=== PATIENT | male | born 1950 | race Caucasian/White ===

== ENCOUNTER → 2017-09-06 10:29 | Outpatient (CLI) | payer OTHER, SELFPAY ==
--- NOTE | 2017-09-06 | DI.CT.S_ITS ---
PROCEDURE: CT ABDOMEN PELVIS WO/W CON INDICATIONS: GROSS HEMETURIA TECHNIQUE: Optional 5 mm thick noncontrast images acquired from the diaphragm to the symphysis pubis. After the administration of intravenous contrast, 5 mm thick images acquired from the diaphragm to the symphysis pubis after a 10-minute delay. 2 mm thick coronal and sagittal reformats were then performed of the kidneys and ureters. For radiation dose reduction, the following was used: automated exposure control, adjustment of mA and/or kV according to patient size. COMPARISON: [facility], CT, IVP (ABD & PEL WWO CONTRAST), 07/23/2013, 8:15. [facility], NM, NM BONE SCAN WHOLE BODY, 04/19/2017, 13:06. [facility], CT, CT CHEST ABDOMEN PELVIS WITH CONTRAST, 04/19/2017, 14:41. CT, ABDOMEN/PELVIS WITH CONTRAST, 11/19/2006, 9:35. FINDINGS: Image quality: Excellent. Lung bases: A 1.6 cm irregular density in the right lung base is most likely scar or atelectasis. A tiny hiatal hernia is noted. Heart size is normal. Urinary system: Both kidneys are normal in size, without hydronephrosis or nephrolithiasis on pre-contrast images. No perinephric fat stranding. There is normal bilateral renal enhancement. Renal calyces appear normal in morphology when filled with contrast. Opacified portions of both ureters demonstrate normal caliber. Bladder is partially contracted. No bladder stones. The anterior wall of the urinary bladder is thickened with appearance suggesting a mass measuring 2.2 x 2.9 cm. No calcified bladder stones. Multiple surgical clips are present related to prostatectomy. Other solid organs: There is diffuse hepatic fatty infiltration. Liver is normal in size and enhancement. Gallbladder is normal. Biliary system is non dilated. Pancreas enhances normally. Spleen is normal in size and enhancement. No adrenal nodules. Peritoneum and bowel: Bowel loops demonstrate normal wall thickness and caliber. There are scattered colonic diverticula. No evidence for acute diverticulitis. No free fluid or air. Nodes and vessels: Increased retroperitoneal lymphadenopathy. For example, a 1.8 x 2.1 cm left para-aortic lymph node now measures 0.9 x 1.2 cm. A 1.1 cm aortocaval lymph node now measures 0.8 cm. Aorta and inferior vena cava are normal in size. Abdominal wall: No ventral hernias. Pelvis: Presacral soft tissue nodules are decreased in size. For example, the largest presacral nodule measured 1.5 x 2.2 cm on the last exam, now measuring 1.1 x 1.4 cm. No pathologic free pelvic fluid. No inguinal hernias or adenopathy. Bones: No suspicious bony lesions. No vertebral body compression fractures. IMPRESSION: 1. Bladder is partially contracted. The anterior wall the bladder is thickened at the midline with appearance suggesting a mass which measures 2.2 x 2.9 cm. Recommend cystoscopy for further evaluation. 2. No renal stone hydronephrosis. 3. Decreased retroperitoneal lymphadenopathy. 4. Decrease in size of presacral soft tissue nodules.. 5. A 1.6 cm irregular density in the right lung base, most likely scar or atelectasis. A followup CT suggested in 3 months. 6. Diverticulosis without acute diverticulitis. Dictated by: Pete Hernández M.D. on 09/06/2017 at 14:37 Approved by: Pete Hernández M.D. on 09/06/2017 at 18:36
== END ==
PROVIDERS: Family Provider Internal Medicine Hematology & Oncology; PCP Internal Medicine; Visit Provider Urology
DX: N32.89 Other specified disorders of bladder (principal); R31.0 Gross hematuria; R91.8 Other nonspecific abnormal finding of lung field; K57.90 Diverticulosis of intestine, part unspecified, without perforation or abscess without bleeding
CPT/HCPCS: 74178; Q9967

== ENCOUNTER → 2017-11-26 11:33 | Outpatient (CLI) | payer OTHER, SELFPAY ==
--- NOTE | 2017-11-26 | DI.RAD.S_ITS ---
PROCEDURE: XR WRIST LT MIN 3V INDICATIONS: LEFT WRIST PAIN TECHNIQUE: 4 views of the wrist were acquired. COMPARISON: [facility], CR, HAND MIN 3VW (LT), 11/10/2009, 15:14. FINDINGS: Bones: No fractures or dislocations. No suspicious bony lesions. Degenerative joint disease has developed at the first carpometacarpal joint. Scaphoid view: Normal scaphoid Soft tissues: No suspicious soft tissue calcifications. IMPRESSION: Osteoarthritis basilar joint of the thumb Dictated by: Paul García M.D. on 11/26/2017 at 12:53 Approved by: Paul García M.D. on 11/26/2017 at 12:55
== END ==
PROVIDERS: Family Provider Internal Medicine Hematology & Oncology; PCP Internal Medicine; Visit Provider Internal Medicine
DX: M19.042 Primary osteoarthritis, left hand (principal); M25.532 Pain in left wrist
CPT/HCPCS: 73110

== ENCOUNTER → 2017-12-04 14:20 | Outpatient (CLI) | payer OTHER, SELFPAY ==
[2017-12-04 14:45] LABS: Add Manual Diff / Slide Review NO; Basophils Percent Auto 0.7 % (0-2); Eosinophils Percent Auto 1.8 % (2-4); Hematocrit 41.6 % (41-53); Hemoglobin 13.8 g/dL (13.5-17.5); Lymphocytes Percent Auto 29.4 % (25-40); Mean Corpuscular HGB Conc 33.3 % (30-36); Mean Corpuscular Hemoglobin 28.1 PG (26-34); Mean Corpuscular Volume 84.4 fL (80-100); Monocytes Percent Auto 7.9 % (3-14); Neutrophils Absolute Auto 3700 /uL (3000-5900); Neutrophils Percent Auto 60.2 % (50-75); Platelet Count 191 X10^3/uL (150-400); Red Blood Cell Count 4.92 X10^6/uL (4.5-5.9); Red Cell Distribution Width 12.8 % (11.6-14.8); White Blood Cell Count 6.1 X10^3/uL (4.5-11.0)
[2017-12-04 15:06] LABS: Alanine Aminotransferase 121 IU/L (21-72); Albumin 4.6 g/dL (3.5-5.0); Albumin Globulin Ratio 1.6 (1.0-2.8); Alkaline Phosphatase 80 U/L (38-126); Aspartate Aminotransferase 107 IU/L (17-59); Bilirubin Total 0.3 mg/dL (0.2-1.3); Blood Urea Nitrogen 15 mg/dL (9-20); Calcium 10.2 mg/dL (8.4-10.2); Carbon Dioxide 25 mmol/L (22-32); Chloride 100 mmol/L (98-107); Estimated Glomerular Filt Rate > 60.0 mL/min (>60); Globulin 2.8 g/dL (1.7-4.1); Glucose 205 mg/dL (80-110); HEMOLYSIS 21 (0-50); Sodium 136 mmol/L (137-145); Total Protein 7.4 g/dL (6.3-8.2)
[2017-12-04 15:33] LABS: Prostate Specific Antigen < 0.064 ng/mL (0.10-4.00)
== END ==
PROVIDERS: Family Provider Internal Medicine Hematology & Oncology; PCP Internal Medicine; Visit Provider Nurse Practitioner Gerontology
DX: C61 Malignant neoplasm of prostate (principal)
CPT/HCPCS: 36415; 80053; 84153; 85025

== ENCOUNTER → 2018-01-24 14:51 | Outpatient (CLI) | payer OTHER, SELFPAY ==
[2018-01-24 15:19] LABS: Add Manual Diff / Slide Review NO; Basophils Percent Auto 0.7 % (0-2); Eosinophils Percent Auto 2.5 % (2-4); Hematocrit 41.3 % (41-53); Hemoglobin 13.8 g/dL (13.5-17.5); Lymphocytes Percent Auto 33.5 % (25-40); Mean Corpuscular HGB Conc 33.5 % (30-36); Mean Corpuscular Hemoglobin 28.3 PG (26-34); Mean Corpuscular Volume 84.6 fL (80-100); Monocytes Percent Auto 9.6 % (3-14); Neutrophils Absolute Auto 4100 /uL (3000-5900); Neutrophils Percent Auto 53.7 % (50-75); Platelet Count 227 X10^3/uL (150-400); Red Blood Cell Count 4.88 X10^6/uL (4.5-5.9); Red Cell Distribution Width 13.5 % (11.6-14.8); White Blood Cell Count 7.6 X10^3/uL (4.5-11.0)
[2018-01-24 15:30] LABS: Alanine Aminotransferase 137 IU/L (21-72); Albumin 4.6 g/dL (3.5-5.0); Albumin Globulin Ratio 1.5 (1.0-2.8); Alkaline Phosphatase 83 U/L (38-126); Aspartate Aminotransferase 142 IU/L (17-59); BUN Creatinine Ratio 18.9 (6-22); Bilirubin Total 0.4 mg/dL (0.2-1.3); Blood Urea Nitrogen 17 mg/dL (9-20); Calcium 10.3 mg/dL (8.4-10.2); Carbon Dioxide 31 mmol/L (22-32); Chloride 101 mmol/L (98-107); Estimated Glomerular Filt Rate > 60.0 mL/min (>60); Glucose 80 mg/dL (80-110); Potassium 4.1 mmol/L (3.4-5.1); Sodium 144 mmol/L (137-145); Total Protein 7.6 g/dL (6.3-8.2)
[2018-01-24 16:02] LABS: Prostate Specific Antigen < 0.064 ng/mL (0.10-4.00)
[2018-01-24 16:04] LABS: HEMOLYSIS 27 (0-50); Testosterone 9.9 ng/dL (71.8-623)
== END ==
PROVIDERS: Family Provider Internal Medicine Hematology & Oncology; PCP Internal Medicine; Visit Provider Nurse Practitioner Gerontology
DX: C61 Malignant neoplasm of prostate (principal)
CPT/HCPCS: 36415; 80053; 84153; 84403; 85025

== ENCOUNTER 2018-01-28 11:00 | Oncology outpatient (ONC) | payer OTHER, SELFPAY ==
[2017-10-15 14:40] LABS: Alanine Aminotransferase 117 IU/L (21-72); Albumin 4.7 g/dL (3.5-5.0); Albumin Globulin Ratio 1.6 (1.0-2.8); Alkaline Phosphatase 93 U/L (38-126); Aspartate Aminotransferase 104 IU/L (17-59); BUN Creatinine Ratio 18.6 (6-22); Bilirubin Total 0.4 mg/dL (0.2-1.3); Blood Urea Nitrogen 13 mg/dL (9-20); Calcium 9.7 mg/dL (8.4-10.2); Carbon Dioxide 25 mmol/L (22-32); Chloride 98 mmol/L (98-107); Estimated Glomerular Filt Rate > 60.0 mL/min (>60); Glucose 220 mg/dL (80-110); HEMOLYSIS 34 (0-50); Potassium 4.1 mmol/L (3.4-5.1); Sodium 136 mmol/L (137-145); Total Protein 7.7 g/dL (6.3-8.2)
[2017-10-15 15:11] LABS: Prostate Specific Antigen < 0.064 ng/mL (0.10-4.00)
[2017-10-15 15:46] VITALS: BP 133/83; PULSE 74; RESP 17; TEMP 37.1; O2SAT 98
--- NOTE | 2017-10-15 15:46 | P.PNONC_ITS ---
Assessment and Plan (1) Prostate cancer Current visit: Yes Status: Acute 10/15/17 15:47 Rosendo is a 67-year-old male with recent confirmation of PSA failure following prostatectomy for [place] 7 prostate cancer, followed by radiation therapy. Treatment with Lupron de peau 7.5 mg was initiated June 18, 2017 with a baseline PSA of 6.92. Subsequent visit July 12, 2017 PSA was 5.36. At this time he receive lupron depot 0 22.5 mg. Patient was scheduled for Lupron inj today however he declines reporting significant diffuse generalized body pain. He is going on vacation and he wants to be feeling well. He has tried Tylenol that does not seem to help at all. He thinks the pain has been exacerbated by the increased dose 22.5 mg Lupron. This does seem reasonable however I cautioned the patient I would rather he not go without Lupron. I bar gained with him, rather than the 22.5 mg 3 month dose lets go back to the 7.5 mg monthly dose which he states he had no problem with. He also declined this offer stating once again I dont want any lupron today, look at my PSA its so low. I cautioned the patient PSA can jump quite rapidly, in fact his did in March of 2017. PSA today <0.064 Pt verbalizes understanding of associated risks of foregoing Lupron today. He will return to clinic late November for a visit with 1 of the oncologists. At which time we will also check PSA, CBC, CMP. He does have imaging we need to repeat, he may discuss this with his oncologist. Additionally, glucose is noted to be elevated at 220 also AST 104 ALT 117. We will continue to monitor. Patient is to call while he is on vacation for any acute oncology related issues. Once again, I stressed the appointments of him returning as soon as possible for his Lupron. 10/15/17 15:52 - Time Spent with Patient 35 mins PN -Subjective Interval history: Rosendo is a 67-year-old male who is being seen in the clinic October 15, 2017 for diagnosis of recently confirmed PSA failure following prostatectomy for Edd 7 prostate cancer, followed by radiation therapy. PSA level initially went from 0.4 on March 16, 2000 17-8.1 on April 02, 2017. CT scan demonstrated a pathologic iza aortic lymph node as well as an enlarged aortocaval retroperitoneal lymph node. There was also 3.9 x 1.6 x 1.4 cm multiloculated soft tissue density in the presacral mid pelvic area. The patient was subsequently initiated on Lupron de peau 7.5 mg IM June 18 with a new baseline PSA of 6.92. He was evaluated by Dr. Vences July 12, 2017. PSA on that day was down to 5.36. He was showing some early biochemical improvement. Dr. Vences increased lupron t0 22.5mg IM every 3 month dosing. Pt returns for 3 month visit also clinical evaluation. Today on exam he states I hurt everywhere I don't want my lupron shot. Pt goes on to report he will be leaving for vacation soon and will be gone most of October returning late November. He states he wants to feel well. He states his pain is all over his wrists, his knees, his back, his shoulders. He states he does have arthritis this seems to be worse he has been taking tylenol without relief. he has not visited his PCP, he thinks it is due to Lupron. He also reports menopause hot flashes. No more blood in his urine. No change in bladder habits. No change in activity tolerance or appetite. No unexplained weight loss. No new musculoskeletal pain rather, as described above diffuse arthritic type pain. Also having some headaches. Patient does not seem alarmed by these symptoms again, he feels they were exacerbated by Lupron. Hx of present illness Records are primarily from Dr. Ryan munroe. This is a 67-year-old man who has been asymptomatic but is expressed a recent PSA relapse of prostate cancer. 04/02/2017: PSA 8.1 03/16/2017: PSA 0.4 11/16/2015: PSA 0.7 05/06/2015: PSA 1.1 10/16/2014: PSA 1.3 07/02/2014 PSA 1.1 12/30/2013: PSA 0.8 10/24/2013: PSA 0.8 07/25/2013: PSA 0.6 05/27/2013: PSA 0.6 12/31/2012: PSA 0.2 09/27/2012: PSA 0.2 02/21/2012: PSA < 0.1 The patient had intermediate risk prostate cancer according to Dr. munroe, Edd 4+3 with repeat treatment PSA of 6. Prostatectomy in March 2009 Rising PSA leading to a course of salvage radiation to the prostatic fossa completed 05/02/2010 The patient was seen by Dr. Lewis evaluation of pain in the right shoulder and left hip in 04/13/2017. Because of the rise in PSA and MRI of the hip and shoulder were performed but did not show skeletal metastases. CT chest abdomen and pelvis 04/19/2017 showed an enlarged left periaortic lymph node measuring 1.2 cm x 1.6 cm, and enlarged aortocaval retroperitoneal node measuring 1.2 and a left internal iliac node measuring 1 cm. There is a 3.9 x 1.6 x 1.4 cm multiloculated soft tissue density in the presacral midpelvis unchanged from 11/02/2014 no mesenteric adenopathy count desiccation is no specific bony lesions. Liver and spleen normal. None of these lesions was amenable to biopsy after Dr. munroe consulted with interventional radiology. The patient was referred to medical oncology for systemic therapy consideration. Past Medical History The patient's past medical history is significant for: Diabetes type II treated with metformin and glipizide, orthopedic surgeries and injections as described below Hypertension treated with lisinopril Hypercholesterolemia treated with simvastatin No hospitalizations except for the surgeries described below. Past Surgical History The patient's past surgical history includes: Injections of the back and shoulder and knee most recently more than a year ago Arthroscopic surgery left knee Bone chip removed right knee Results - Labs 10/15/17 14:17 Laboratory Last Values Sodium 136 mmol/L (137-145) L 10/15/17 14:17 Potassium 4.1 mmol/L (3.4-5.1) 10/15/17 14:17 Chloride 98 mmol/L (98-107) 10/15/17 14:17 Carbon Dioxide 25 mmol/L (22-32) 10/15/17 14:17 BUN 13 mg/dL (9-20) 10/15/17 14:17 Creatinine 0.70 mg/dL (0.66-1.25) 10/15/17 14:17 Estimated GFR > 60.0 mL/min (>60) 10/15/17 14:17 BUN/Creatinine Ratio 18.6 (6-22) 10/15/17 14:17 Glucose 220 mg/dL (80-110) H 10/15/17 14:17 Calcium 9.7 mg/dL (8.4-10.2) 10/15/17 14:17 Total Bilirubin 0.4 mg/dL (0.2-1.3) 10/15/17 14:17 AST 104 IU/L (17-59) H 10/15/17 14:17 ALT 117 IU/L (21-72) H 10/15/17 14:17 Alkaline Phosphatase 93 U/L (38-126) 10/15/17 14:17 Total Protein 7.7 g/dL (6.3-8.2) 10/15/17 14:17 Albumin 4.7 g/dL (3.5-5.0) 10/15/17 14:17 Globulin 3.0 g/dL (1.7-4.1) 10/15/17 14:17 Albumin/Globulin Ratio 1.6 (1.0-2.8) 10/15/17 14:17 Prostate Specific Ag < 0.064 ng/mL (0.10-4.00) L 10/15/17 14:17 - Imaging Additional studies: Procedures Colonoscopy (10/28/12) Injection or infusion of other therapeutic or prophylactic substance (02/28/13) Home Medications and Allergies Home Medications Medication Instructions Recorded Confirmed Type [CANNIBUS OIL] PRN #0 05/25/17 History aspirin 81 mg PO QDAY #0 05/25/17 10/15/17 History calcium carbonate [Tums] 500 mg PO QDAY #0 05/25/17 10/15/17 History fluoxetine 10 mg PO Q DAY #0 05/25/17 10/15/17 History fluticasone 2 spray INTRANASAL QDAYP PRN #0 05/25/17 10/15/17 History glipizide 5 mg PO AMAC #0 05/25/17 10/15/17 History hydrochlorothiazide 12.5 mg PO QDAY #0 05/25/17 10/15/17 History lisinopril 20 mg PO BID #0 05/25/17 10/15/17 History metformin [Glucophage] 1,000 mg PO BIDCC #0 05/25/17 10/15/17 History multivitamin [Multiple Vitamins] 1 tab PO QDAY #0 05/25/17 10/15/17 History nortriptyline 25 mg PO EVERY OTHER DAY #0 05/25/17 10/15/17 History omeprazole 20 mg PO QDAY #0 05/25/17 10/15/17 History oxycodone 5 mg PO PRN PRN #0 05/25/17 10/15/17 History ropinirole 2 mg PO HS #0 05/25/17 10/15/17 History simvastatin 10 mg PO QDAY #0 05/25/17 10/15/17 History zolpidem 5 mg PO HS #0 05/25/17 10/15/17 History Allergies Allergy/AdvReac Type Severity Reaction Status Date / Time No Known Allergies Allergy Uncoded 08/15/17 11:50 Exam Narrative: non toxic - Constitutional positive no acute distress, positive obese - Routine HEENT Exam Head: Present: normocephalic, atraumatic Eye: Present: EOMI, PERRL, normal accommodation, conjunctivae pink. Absent: conjunctival icterus, scleral injection ENT: Present: mucous membranes moist - Routine Neck Exam Present: supple. Absent: lymphadenopathy - Routine Chest/Breast/Axilla Exam Axillae: Absent: lymphadenopathy, mass, tenderness - Routine Respiratory Exam Present: Clear to auscultation bilaterally - Routine Cardiovascular Exam Present: RRR, S1, S2 - Routine Abdominal Exam Present: soft, normoactive bowel sounds. Absent: tenderness, distended, organomegaly, mass - Routine Extremities Exam Absent: edema, calf tenderness - Routine Skin Exam Present: intact, normal turgor. Absent: petechiae - Routine Neurological Exam Present: alert, oriented X3 - Routine Psychiatric Exam Present: normal affect
--- NOTE | 2017-12-10 08:59 | P.PNONC_ITS ---
Assessment and Plan (1) Prostate cancer Current visit: No Status: Acute 12/10/17 08:58 Rosendo is a 67-year-old male who is being seen in the clinic December 10 2017 for diagnosis of recently confirmed PSA failure following prostatectomy for Edd 7 prostate cancer, followed by radiation therapy. PSA level initially went from 0.4 on March 16, 2000 17-8.1 on April 02, 2017. CT scan demonstrated a pathologic iza aortic lymph node as well as an enlarged aortocaval retroperitoneal lymph node. There was also 3.9 x 1.6 x 1.4 cm multiloculated soft tissue density in the presacral mid pelvic area. The patient was subsequently initiated on Lupron depot 7.5 mg IM June 18 with a PSA of 6.92. PSA July 12, 2017 5.36. PSA October 15, 2017 <0.064. Per pt request Lupron was held previous visit 10/15/2017 as pt was going on summer vacation and he wanted to feel good, the Lupron makes me feel terrible . Most recent Lupron injection was 22.5mg July 12 2017. He again declines Lupron today. We reviewed his numbers today including PSA < 0.064. I recommended to the patient he continue with Lupron injections. He verbalizes understanding of associated risks of foregoing Lupron therapy again today. He agrees to return to clinic in 1 months time to see our new oncologist. We will also check PSA, testosterone, CBC, CMP. 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 12/10/17 15:25 12/10/17 15:31 - Time Spent with Patient 30 minutes PN -Subjective Interval history: Rosendo is a 67-year-old male who is being seen in the clinic December 10 2017 for diagnosis of recently confirmed PSA failure following prostatectomy for Edd 7 prostate cancer, followed by radiation therapy. PSA level initially went from 0.4 on March 16, 2000 17-8.1 on April 02, 2017. CT scan demonstrated a pathologic iza aortic lymph node as well as an enlarged aortocaval retroperitoneal lymph node. There was also 3.9 x 1.6 x 1.4 cm multiloculated soft tissue density in the presacral mid pelvic area. The patient was subsequently initiated on Lupron depot 7.5 mg IM June 18 with a new baseline PSA of 6.92. He was evaluated by Dr. Vences July 12, 2017. PSA on that day was down to 5.36. He was showing some early biochemical improvement. Dr. Vences increased lupron t0 22.5mg IM every 3 month dosing. Oncology visit 10/15/2017 PSA was <0.064. At this visit pt declined Lupron indicating he was going on vacation and wanted to feel good. Pt returns today for clinical evaluation as well as Lupron injection however pt states at the outset of exam he does not want Lupron inj today. Rosendo goes on to report rather sever chronic joint pain, he has known arthritis, osteoarthritis, now with recent diagnosis of degenerative disease in his left hand. He states his pain got significantly worse with initiation of Lupron. He is seeing a pain management special in the upcoming weeks. He is taking Tylenol also ibuprofen with an occasional oxycodone. This is not effective his pain is almost always greater than a 4/10, most often it is a 6-7/10. He does report some fatigue however fairly manageable. No shortness of breath, no chest pain. He does report hot flashes they are bothersome to him. Appetite is very good. No issues with bladder or bowel habits. No headaches. No new pain. No new lumps or bumps. Hx of present illness Records are primarily from Dr. Ryan munroe. This is a 67-year-old man who has been asymptomatic but is expressed a recent PSA relapse of prostate cancer. 04/02/2017: PSA 8.1 03/16/2017: PSA 0.4 11/16/2015: PSA 0.7 05/06/2015: PSA 1.1 10/16/2014: PSA 1.3 07/02/2014 PSA 1.1 12/30/2013: PSA 0.8 10/24/2013: PSA 0.8 07/25/2013: PSA 0.6 05/27/2013: PSA 0.6 12/31/2012: PSA 0.2 09/27/2012: PSA 0.2 02/21/2012: PSA < 0.1 The patient had intermediate risk prostate cancer according to Dr. munroe, Edd 4+3 with repeat treatment PSA of 6. Prostatectomy in March 2009 Rising PSA leading to a course of salvage radiation to the prostatic fossa completed 05/02/2010 The patient was seen by Dr. Lewis evaluation of pain in the right shoulder and left hip in 04/13/2017. Because of the rise in PSA and MRI of the hip and shoulder were performed but did not show skeletal metastases. CT chest abdomen and pelvis 04/19/2017 showed an enlarged left periaortic lymph node measuring 1.2 cm x 1.6 cm, and enlarged aortocaval retroperitoneal node measuring 1.2 and a left internal iliac node measuring 1 cm. There is a 3.9 x 1.6 x 1.4 cm multiloculated soft tissue density in the presacral midpelvis unchanged from 11/02/2014 no mesenteric adenopathy count desiccation is no specific bony lesions. Liver and spleen normal. None of these lesions was amenable to biopsy after Dr. munroe consulted with interventional radiology. The patient was referred to medical oncology for systemic therapy consideration. Past Medical History The patient's past medical history is significant for: Diabetes type II treated with metformin and glipizide, orthopedic surgeries and injections as described below Hypertension treated with lisinopril Hypercholesterolemia treated with simvastatin No hospitalizations except for the surgeries described below. Past Surgical History The patient's past surgical history includes: Injections of the back and shoulder and knee most recently more than a year ago Arthroscopic surgery left knee Bone chip removed right knee - Patient Self-Reported Symptoms SR Constitution: Fatigue/Malaise, Night Sweats SR ears, nose, mouth, throat issues: Congestion, Ears ringing SR respiratory issues: Cough, Mucous SR Gastrointestinal issues: Abdominal pain, Change in bowel pattern, Constipation, Diarrhea SR Genitourinary issues: Frequent urination, Incontinence SR Musculoskeletal issues: Back or neck pain, Bone pain, Cold hands or feet, Joint pain or swelling, Muscle pain or cramps, Muscle weakness SR Neuro issues: Headache, Tremors or shaking SR Endocrine issues: Excessive thirst, Excessive urination, Hot flashes Results - Labs 10/15/17 14:17 Laboratory Last Values Sodium 136 mmol/L (137-145) L 10/15/17 14:17 Potassium 4.1 mmol/L (3.4-5.1) 10/15/17 14:17 Chloride 98 mmol/L (98-107) 10/15/17 14:17 Carbon Dioxide 25 mmol/L (22-32) 10/15/17 14:17 BUN 13 mg/dL (9-20) 10/15/17 14:17 Creatinine 0.70 mg/dL (0.66-1.25) 10/15/17 14:17 Estimated GFR > 60.0 mL/min (>60) 10/15/17 14:17 BUN/Creatinine Ratio 18.6 (6-22) 10/15/17 14:17 Glucose 220 mg/dL (80-110) H 10/15/17 14:17 Calcium 9.7 mg/dL (8.4-10.2) 10/15/17 14:17 Total Bilirubin 0.4 mg/dL (0.2-1.3) 10/15/17 14:17 AST 104 IU/L (17-59) H 10/15/17 14:17 ALT 117 IU/L (21-72) H 10/15/17 14:17 Alkaline Phosphatase 93 U/L (38-126) 10/15/17 14:17 Total Protein 7.7 g/dL (6.3-8.2) 10/15/17 14:17 Albumin 4.7 g/dL (3.5-5.0) 10/15/17 14:17 Globulin 3.0 g/dL (1.7-4.1) 10/15/17 14:17 Albumin/Globulin Ratio 1.6 (1.0-2.8) 10/15/17 14:17 Prostate Specific Ag < 0.064 ng/mL (0.10-4.00) L 10/15/17 14:17 - Imaging Additional studies: Procedures Colonoscopy (10/28/12) Injection or infusion of other therapeutic or prophylactic substance (02/28/13) Home Medications and Allergies Home Medications Medication Instructions Recorded Confirmed Type [CANNIBUS OIL] PRN #0 05/25/17 History aspirin 81 mg PO QDAY #0 05/25/17 10/15/17 History calcium carbonate [Tums] 500 mg PO QDAY #0 05/25/17 10/15/17 History fluoxetine 10 mg PO Q DAY #0 05/25/17 10/15/17 History fluticasone 2 spray INTRANASAL QDAYP PRN #0 05/25/17 10/15/17 History glipizide 5 mg PO AMAC #0 05/25/17 10/15/17 History hydrochlorothiazide 12.5 mg PO QDAY #0 05/25/17 10/15/17 History lisinopril 20 mg PO BID #0 05/25/17 10/15/17 History metformin [Glucophage] 1,000 mg PO BIDCC #0 05/25/17 10/15/17 History multivitamin [Multiple Vitamins] 1 tab PO QDAY #0 05/25/17 10/15/17 History omeprazole 20 mg PO QDAY #0 05/25/17 10/15/17 History oxycodone 5 mg PO PRN PRN #0 05/25/17 10/15/17 History ropinirole 2 mg PO HS #0 05/25/17 10/15/17 History simvastatin 10 mg PO QDAY #0 05/25/17 10/15/17 History zolpidem 5 mg PO HS #0 05/25/17 10/15/17 History Allergies Allergy/AdvReac Type Severity Reaction Status Date / Time No Known Allergies Allergy Uncoded 08/15/17 11:50 Exam Vital signs: Last Vital Signs Temp 98.7 F 10/15/17 15:46 Pulse 74 10/15/17 15:46 Resp 17 10/15/17 15:46 BP 133/83 H 10/15/17 15:46 Pulse Ox 98 10/15/17 15:46 - Constitutional positive no acute distress, positive obese - Routine HEENT Exam Head: Present: normocephalic, atraumatic Eye: Present: conjunctivae pink. Absent: conjunctival icterus, scleral injection ENT: Present: mucous membranes moist, oropharynx clear - Routine Neck Exam Present: supple. Absent: lymphadenopathy - Routine Respiratory Exam Present: Clear to auscultation bilaterally. Absent: rales, rhonchi, wheezes - Routine Cardiovascular Exam Present: RRR, S1, S2. Absent: murmur, gallop, rubs - Routine Abdominal Exam Present: soft, normoactive bowel sounds. Absent: tenderness, distended, organomegaly, mass Comments: obese abdomen - Routine Extremities Exam Absent: edema, calf tenderness - Routine Skin Exam Present: intact, normal turgor. Absent: petechiae, rash - Routine Neurological Exam Present: alert, oriented X3 - Routine Psychiatric Exam Present: normal affect
[2017-12-10 15:06] VITALS: BP 153/98; PULSE 78; RESP 18; TEMP 36.1; O2SAT 98
[2018-01-28 11:36] VITALS: BP 147/85; PULSE 71; RESP 18; TEMP 35.8; O2SAT 97
--- NOTE | 2018-01-28 11:42 | ONC.PN ---
PN -Subjective Interval history: Monica Mckinney is a 67-year-old pleasant gentleman with metastatic prostate adenocarcinoma. He presented today for scheduled oncology follow-up. He was due for Lupron injection in 10/2017, but he did not want to have it due to side effects. After much discussion today, he still did not want to have Lupron today and instead was given a prescription for Casodex as alternate therapy. He underwent radical prostatectomy with lymphadenectomy in 05/2008 for [place] 4 + 3, [id number] (6 lymph nodes examined) adenocarcinoma with PSA 6. There were 2 positive margins, at left posterior surgical and at right apex. He had a biochemical relapse and underwent salvage radiotherapy in 04/2010. In 2014, PSA started to rise again, and by 03/2017 reached 8.4. WB bone scan in 04/2017 was negative for skeletal metastases. CT C/a/P with contrast in 04/2017 showed new left para-aortic (1.6 cm), aorta caval (1.2 cm), and left internal iliac (1.2 cm) lymphadenopathy, concerning for metastatic disease. There was also an unchanged 4 x 1.6 x 1.4 cm multilobulated soft tissue density mass in presacral at mid pelvis, unchanged since 10/2014. The patient was given Lupron 7.5 mg injection on 06/18/2017 and 22.5 mg injection on 07/12/2017. Subsequent to that, PSA has become and has remained on detectable. CT IVP on 09/06/2017, obtained for evaluation of hematuria, showed decreased retroperitoneal and presacral adenopathy. Office cystoscopy by Dr. Lopez was negative on 09/13/2017. The patient had major side effects from Lupron. He was not able to sleep well, had frequent hot flashes, and had generalized pain. At baseline, he has diffuse osteoarthritis and felt this was quite worse after Lupron. His quality of life was definitely negatively impacted. He therefore declined Lupron back in 10/2017, and was still quite hesitant to have it today, especially given that PSA has remained not detectable. We talked about his diagnosis, i.e. metastatic prostate adenocarcinoma, which is an incurable disease. He was not aware of the incurable nature of his condition. He asked appropriate questions about it. 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 After much discussion, I recommended trial of Casodex 50 mg daily and monitor PSA closely. Once PSA starts to rise, then he will consider Lupron. 01/24/2018: PSA <0.064 10/15/2017: PSA <0.064 04/02/2017: PSA 8.1 03/16/2017: PSA 0.4 11/16/2015: PSA 0.7 05/06/2015: PSA 1.1 10/16/2014: PSA 1.3 07/02/2014 PSA 1.1 12/30/2013: PSA 0.8 10/24/2013: PSA 0.8 07/25/2013: PSA 0.6 05/27/2013: PSA 0.6 12/31/2012: PSA 0.2 09/27/2012: PSA 0.2 02/21/2012: PSA < 0.1 Past Medical History Type 2 DM HTN Hypercholesterolemia Diffuse osteoarthritis - Patient Self-Reported Symptoms SR Constitution: Fatigue/Malaise, Night Sweats SR ears, nose, mouth, throat issues: Congestion SR respiratory issues: Cough, Mucous SR Skin issues: Skin lesions or moles, Hair loss or scalp prob SR Gastrointestinal issues: Abdominal pain, Change in bowel pattern, Constipation, Diarrhea SR Genitourinary issues: Frequent urination, Incontinence, Sexual difficulties SR Musculoskeletal issues: Joint pain or swelling, Muscle weakness, Muscle pain or cramps, Back or neck pain, Bone pain SR Neuro issues: Headache, Difficulty balancing SR Endocrine issues: Excessive thirst Home Medications and Allergies Home Medications Medication Instructions Recorded Confirmed Type [CANNIBUS OIL] PRN #0 05/25/17 History aspirin 81 mg PO QDAY #0 05/25/17 10/15/17 History calcium carbonate [Tums] 500 mg PO QDAY #0 05/25/17 10/15/17 History fluoxetine 10 mg PO Q DAY #0 05/25/17 10/15/17 History fluticasone 2 spray INTRANASAL QDAYP PRN #0 05/25/17 10/15/17 History glipizide 5 mg PO AMAC #0 05/25/17 10/15/17 History hydrochlorothiazide 12.5 mg PO QDAY #0 05/25/17 10/15/17 History lisinopril 20 mg PO BID #0 05/25/17 10/15/17 History metformin [Glucophage] 1,000 mg PO BIDCC #0 05/25/17 10/15/17 History multivitamin [Multiple Vitamins] 1 tab PO QDAY #0 05/25/17 10/15/17 History omeprazole 20 mg PO QDAY #0 05/25/17 10/15/17 History oxycodone 5 mg PO PRN PRN #0 05/25/17 10/15/17 History ropinirole 2 mg PO HS #0 05/25/17 10/15/17 History simvastatin 10 mg PO QDAY #0 05/25/17 10/15/17 History zolpidem 5 mg PO HS #0 05/25/17 10/15/17 History lactobacillus combination no.4 3,000 mmu cells PO DAILY 01/28/18 01/28/18 History [Probiotic] melatonin 5 mg PO BEDTIME PRN 01/28/18 01/28/18 History pomegranate fruit extract 01/28/18 History Allergies Allergy/AdvReac Type Severity Reaction Status Date / Time No Known Allergies Allergy Uncoded 08/15/17 11:50 Exam Vital signs: Last Vital Signs Temp 96.4 F L 01/28/18 11:36 Pulse 71 01/28/18 11:36 Resp 18 01/28/18 11:36 BP 147/85 H 01/28/18 11:36 Pulse Ox 97 01/28/18 11:36 - Constitutional positive no acute distress - Routine HEENT Exam Head: Present: normocephalic, atraumatic - Routine Neck Exam Present: supple. Absent: lymphadenopathy - Routine Respiratory Exam Present: Clear to auscultation bilaterally - Routine Cardiovascular Exam Present: RRR - Routine Abdominal Exam Present: soft. Absent: organomegaly, mass - Routine Extremities Exam Absent: edema Results - Labs Laboratory Last Values Sodium 136 mmol/L (137-145) L 10/15/17 14:17 Potassium 4.1 mmol/L (3.4-5.1) 10/15/17 14:17 Chloride 98 mmol/L (98-107) 10/15/17 14:17 Carbon Dioxide 25 mmol/L (22-32) 10/15/17 14:17 BUN 13 mg/dL (9-20) 10/15/17 14:17 Creatinine 0.70 mg/dL (0.66-1.25) 10/15/17 14:17 Estimated GFR > 60.0 mL/min (>60) 10/15/17 14:17 BUN/Creatinine Ratio 18.6 (6-22) 10/15/17 14:17 Glucose 220 mg/dL (80-110) H 10/15/17 14:17 Calcium 9.7 mg/dL (8.4-10.2) 10/15/17 14:17 Total Bilirubin 0.4 mg/dL (0.2-1.3) 10/15/17 14:17 AST 104 IU/L (17-59) H 10/15/17 14:17 ALT 117 IU/L (21-72) H 10/15/17 14:17 Alkaline Phosphatase 93 U/L (38-126) 10/15/17 14:17 Total Protein 7.7 g/dL (6.3-8.2) 10/15/17 14:17 Albumin 4.7 g/dL (3.5-5.0) 10/15/17 14:17 Globulin 3.0 g/dL (1.7-4.1) 10/15/17 14:17 Albumin/Globulin Ratio 1.6 (1.0-2.8) 10/15/17 14:17 Prostate Specific Ag < 0.064 ng/mL (0.10-4.00) L 10/15/17 14:17 - Imaging Additional studies: Procedures Colonoscopy (10/28/12) Injection or infusion of other therapeutic or prophylactic substance (02/28/13) Assessment and Plan (1) Prostate cancer Current visit: No Status: Acute Metastatic prostate adenocarcinoma with andrew metastases. The patient received Lupron 7.5 mg injection in 06/2017 and 22.5 mg injection in 07/2017, associated with major side effects, but PSA remains nondetectable. There was evidence of radiographic response and metastatic lymph nodes on CT IVP in 09/2017. He was reluctant to receive Lupron today. Instead he was given a prescription for Casodex 50 mg daily. Our plan is to recheck PSA and other labs in 3 months and wants PSA starts to rise, he will resume Lupron at that point. Follow-up appointment in 3 months with labs 2-3 days before visit are scheduled.
--- NOTE | 2018-01-30 09:36 | PC.NURSE ---
Casodex 50mg tabs with 2 refills called into on [facility] 01/[address] Kingston's orders. Pt notified
== END 2018-01-29 12:00 ==
PROVIDERS: Family Provider Internal Medicine Hematology & Oncology; PCP Internal Medicine; Visit Provider Nurse Practitioner Gerontology
DX: C61 Malignant neoplasm of prostate (principal)
CPT/HCPCS: 36415; 80053; 84153; 99214; 99215

== ENCOUNTER → 2018-03-29 08:08 | Outpatient (CLI) | payer OTHER, SELFPAY ==
--- NOTE | 2018-03-29 08:09 | DI.MRI.S_ITS ---
PROCEDURE: MR LUMBAR SPINE WO CON INDICATIONS: Evaluation TECHNIQUE: Noncontrast sagittal T1 spin echo and T2 fast echo, sagittal STIR, axial T1 and T2 fast spin echo through the lumbar spine. In cases with scoliosis, additional coronal T2 fast spin echo may be performed. COMPARISON: [facility], MR, L-SPINE WITHOUT CONTRAST, 03/17/2014, 18:11. [facility], CR, KUB XRAY (1 VIEW ABDOMEN), 08/03/2017, 14:52. FINDINGS: Image quality: Excellent. Alignment and Curvature: There are 5 lumbar-type vertebral bodies by plain film, with rudimentary ribs at T12. There is mild grade 1 retrolisthesis of L1 on L2, L2 on L3, and L3 on L4. Bone Marrow: Marrow is of normal overall signal. No acute vertebral body compression fractures. There is mild reactive signal within the endplates adjacent to the L1-L2, L2-L3, and L4-L5 intervertebral discs. Spinal Cord: Conus medullaris terminates at the upper L1 level. Visualized cord demonstrates normal signal and size. Paraspinous Soft Tissues: No paravertebral masses. L1-L2: Moderate disc desiccation. Mild disc height loss. Mild diffuse disc bulge. Mild bilateral facet and ligamentum flavum hypertrophy. Mild canal stenosis. Mild bilateral foraminal stenosis.No change. L2-L3: Moderate disc height loss and desiccation. Mild diffuse disc bulge/osteophyte. Mild bilateral facet and ligamentum flavum hypertrophy. Mild epidural lipomatosis. Mild canal stenosis. Mild bilateral foraminal stenosis.No change. L3-L4: Moderate disc desiccation. Mild disc height loss. Mild diffuse disc bulge. Mild bilateral facet and ligamentum flavum hypertrophy. Mild canal stenosis. Mild bilateral foraminal stenosis.No change. L4-L5: Moderate disc height loss and desiccation. Mild diffuse disc bulge. Mild bilateral facet and ligamentum flavum hypertrophy. Mild canal stenosis. Moderate right and mild left foraminal stenosis. No change. L5-S1: Moderate disc height loss and desiccation. Mild diffuse disc bulge, with superimposed broad-based left posterior lateral protrusion. Mild bilateral facet hypertrophy. Mild canal stenosis. No change in mild right foraminal stenosis. Increased, moderate to severe left foraminal stenosis with possible mild flattening deformity of the left L5 nerve root within the neural foramen. IMPRESSION: 1. Multilevel degenerative disc and facet disease, as well as ligament flavum hypertrophy and epidural lipomatosis. 2. Mild multilevel canal stenoses. 3. Multilevel foraminal stenoses, worst on the left L5-S1, where there is increased, moderate to severe foraminal stenosis, with possible flattening deformity of the left L5 nerve root within the neural foramen. Recommend correlation with clinical symptoms to ascertain relevance of this finding. Dictated by: Alyson Wright M.D. on 03/29/2018 at 9:45 Approved by: Alyson Wright M.D. on 03/29/2018 at 9:57
--- NOTE | 2018-03-29 08:09 | DI.MRI.S_ITS ---
PROCEDURE: MR CERVICAL SPINE WO CON INDICATIONS: Headaches and neck pain. TECHNIQUE: Noncontrast sagittal T1 spin echo and T2 fast spin echo, sagittal STIR, foraminal oblique sagittal T2 fast spin echo, and axial gradient echo or T2 fast spin echo through the cervical spine. COMPARISON: None. FINDINGS: Image quality: Excellent. Alignment and Curvature: There is loss of normal cervical lordosis. There is moderate reactive signal within the left aspect of the end plates adjacent to the C4-C5 inter-vertebral disc. Mild reactive signal within the endplates adjacent to the C6-C7 intervertebral disc. Bone Marrow: Marrow demonstrates normal overall signal. Spinal Cord: Visualized spinal cord has normal size and signal. No cerebellar tonsillar herniation. Paraspinous Soft Tissues: No paravertebral masses. Prevertebral soft tissues are normal in thickness. C2-C3: Left greater than right facet and uncovertebral hypertrophy. No canal stenosis. Moderate left and mild right foraminal stenosis. C3-C4: Congenital canal stenosis. Mild disc desiccation and diffuse disc bulge. Moderate left greater than right facet and uncovertebral hypertrophy. There is overall moderate canal stenosis. There is moderate left greater than right foraminal stenosis. C4-C5: Congenital canal stenosis. Moderate disc desiccation. Mild diffuse disc bulge. Mild bilateral facet and uncovertebral hypertrophy. Moderate canal stenosis. Moderate bilateral foraminal stenosis. C5-C6: Congenital canal stenosis. Moderate disc desiccation. Moderate diffuse disc bulge. Moderate bilateral facet and uncovertebral hypertrophy. Severe canal stenosis. Mild cord flattening. Moderate left and severe right foraminal stenosis with flattening of the right C6 nerve root. C6-C7: Congenital canal stenosis. Moderate disc desiccation. Mild diffuse disc bulge with superimposed left paracentral protrusion. Moderate left greater than right facet and uncovertebral hypertrophy. There is overall moderate to severe canal stenosis. Minimal left cord flattening. Severe left and moderate right foraminal stenosis. Flattening of the left C7 nerve root. C7-T1: Mild bilateral facet and uncovertebral hypertrophy. Mild bilateral foraminal stenosis. IMPRESSION: 1. Diffuse congenital canal stenosis, with superimposed disc and facet disease, as well as uncovertebral hypertrophy. 2. Multilevel canal stenoses, worst at C5-C6 and C6-C7, where there is cord flattening present. 3. Multilevel foraminal stenoses, worst at C5-C6 on the right, and C6-C7 on the left, where there is associated intraforaminal neural flattening as described above. Recommend correlation with clinical symptoms to ascertain relevance of these findings. Dictated by: Alyson Wright M.D. on 03/29/2018 at 9:31 Approved by: Alyson Wright M.D. on 03/29/2018 at 9:41
== END ==
PROVIDERS: PCP Internal Medicine; Visit Provider Physical Medicine & Rehabilitation
DX: M50.21 Other cervical disc displacement, high cervical region (principal); M48.02 Spinal stenosis, cervical region; R51 Headache; M51.36 Other intervertebral disc degeneration, lumbar region; M51.37 Other intervertebral disc degeneration, lumbosacral region; M48.061 Spinal stenosis, lumbar region without neurogenic claudication; M48.07 Spinal stenosis, lumbosacral region; E88.2 Lipomatosis, not elsewhere classified; G89.29 Other chronic pain
CPT/HCPCS: 72141; 72148

== ENCOUNTER → 2018-04-17 14:40 | Outpatient (CLI) | payer OTHER, SELFPAY ==
[2018-04-17 16:24] LABS: Alanine Aminotransferase 183 IU/L (21-72); Albumin 4.6 g/dL (3.5-5.0); Albumin Globulin Ratio 1.8 (1.0-2.8); Alkaline Phosphatase 84 U/L (38-126); Aspartate Aminotransferase 181 IU/L (17-59); Bilirubin Total 0.4 mg/dL (0.2-1.3); Bilirubin Unconjugated 0.1 mg/dL (0.0-1.1); Calcium 9.8 mg/dL (8.4-10.2); Globulin 2.6 g/dL (1.7-4.1); HEMOLYSIS 38 (0-50); Total Protein 7.2 g/dL (6.3-8.2)
[2018-04-20 14:34] LABS: Parathyroid Hormone Int 36 pg/mL (14-64)
== END ==
PROVIDERS: PCP Internal Medicine; Visit Provider Internal Medicine
DX: K76.0 Fatty (change of) liver, not elsewhere classified (principal); E83.52 Hypercalcemia
CPT/HCPCS: 36415; 80076; 82310; 83970

== ENCOUNTER → 2018-05-14 16:21 | Outpatient (CLI) | payer OTHER, SELFPAY ==
--- NOTE | 2018-05-14 | DI.RAD.S_ITS ---
PROCEDURE: XR CHEST 2V INDICATIONS: COUGH TECHNIQUE: 2 views of the chest were acquired. COMPARISON: [facility], , CHEST 2 VIEW, 05/11/2016, 12:44. FINDINGS: Surgical changes and devices: None. Lungs and pleura: No pleural effusions or pneumothorax. Lungs are clear. Mediastinum: Mediastinal contours are normal. Heart size is normal. Bones and chest wall: No suspicious bony abnormalities. Soft tissues appear unremarkable. IMPRESSION: 1. No acute cardiopulmonary disease. Dictated by: Jose Cruz Dotson M.D. on 05/14/2018 at 17:21 Approved by: Jose Cruz Dotson M.D. on 05/14/2018 at 17:21
== END ==
PROVIDERS: Family Provider Internal Medicine; PCP Internal Medicine; Visit Provider Internal Medicine
DX: R05 Cough (principal)
CPT/HCPCS: 71046

== ENCOUNTER 2018-05-29 10:56 | Outpatient (CLI) | payer OTHER, SELFPAY ==
--- NOTE | 2018-05-29 10:57 | DI.RAD.S_ITS ---
PROCEDURE: PAIN L/S TRANSFORAMINAL INJECT INDICATIONS: HERNIATED NULEUS PULPOSUS FINDINGS: Fluoroscopic spot filming was performed to verify placement of spinal needles at the left L5-S1 level(s), as labeled on the films. Appropriate location(s) of the needle tip(s) was confirmed by injection of iodinated contrast. IMPRESSION: Successful needle tip localization on the left at the L5-S1 facet region for perineural epidural steroid injection. Dictated by: Kris Kebede M.D. on 05/29/2018 at 12:57 Approved by: Kris Kebede M.D. on 05/29/2018 at 12:57
[2018-05-29 11:29] VITALS: BP 124/77; PULSE 65; RESP 18; TEMP 36.9; O2SAT 97
[2018-05-29 12:02] VITALS: BP 102/48; PULSE 80; RESP 16; O2SAT 95
[2018-05-29] MEDS: MIDAZOLAM 5 MG/5 ML VIAL IV (12:04)
[2018-05-29] MEDS: fentaNYL 100 MCG/2 ML INJ IV (12:05)
[2018-05-29 12:06] VITALS: BP 154/95; PULSE 90; RESP 16; O2SAT 95
[2018-05-29] MEDS: BUPIVACAINE 0.25% (PF) VIAL 2 ML INJ (12:10)
[2018-05-29] MEDS: DEXAMETHASONE 10 MG/ML VIAL 20 MG INJ (12:10)
[2018-05-29] MEDS: IOPAMIDOL 15 ML VIAL 3 ML INJ (12:10)
[2018-05-29] MEDS: methylPREDNISolone acetate 80 MG/ML VIAL INJ (12:10)
[2018-05-29 12:15] VITALS: BP 142/93; PULSE 80; RESP 16; O2SAT 95
--- NOTE | 2018-05-29 12:16 | PC.NURSE ---
1 5 minute vital sign missed rt pt moving on table under moderate sedation. due to pt safety concerns, my hands were on pt, keeping him calm through shoulder massage to keep him from moving and could not take vitals.
--- NOTE | 2018-05-29 12:17 | PC.NURSE ---
ASSISTING PT OFF TABLE AND TRANSPORTING PT TO POST PROC AREA IN STABLE CONDITION
--- NOTE | 2018-05-29 12:20 | P.PCN_ITS ---
Procedures Date/Time Date of procedure: 05/29/18 Time of procedure: 12:19 General Procedure description: PREOP DIAGNOSIS 1. FORMAINAL STENOSIS WITH LE SYMPTOMS POST OP DIAGNOSIS 1. FORMAINAL STENOSIS WITH LE SYMPTOMS PROCEDURES 1. FLUOROSCOPICALLY GUIDED CONTRAST CONTROLLED TRANSFORAMINAL EPIDURAL STEROID INJECTION - Left L5/S1 PHYSICIAN: Miguel Tovar DO INDICATIONS: Monica is referred by for treatment of HNP with Left LE Symptoms FINDINGS Foraminal Nerve Root Compression secondary to disc disease and facet hypertrophy DESCRIPTION OF PROCEDURE: Following denial of allergy and review of potential side effects and complications, including, but not necessarily limited to, infection, allergic reaction, local tissue breakdown, stroke, temporary or permanent nerve injury, paralysis, and possible , the patient indicated that the patient understood and agreed to proceed. An informed consent document was signed by the patient, witnessed by a nurse, and placed in the patient's chart. Additionally, other treatment options including medications, modalities, and physical therapy were reviewed with the patient. After review of previous anaesthesic history and IV conscious sedation the patient was deemed safe to proceed with todays procedure with IV conscious sedation as ASA class II designation. Safety time-out was performed to confirm patient ID, procedure to be performed and site of procedure. IV sedation was accomplished with a combination of 3mg of Versed and 50mcg of Fentanyl was administered by the RN after DO order, titrated to patient comfort during the course of the procedure while the patient remained responsive to all verbal commands In the prone position following sterile prep and drape of the lumbar region, the Left L5/S1 posterior neuroforamen was identified fluoroscopically. The skin was anesthetized via a 25-gauge 1.5-inch needle with 1% lidocaine solution. At this point, a 25-gauge 3.5-inch spinal needle was atraumatically introduced and advanced under fluoroscopic guidance through the posterior Left L5/S1 neuroforamen to approximately the anterior aspect of the canal. Depth was confirmed on lateral view. Following negative aspiration, injection of approximately 1.5 cc of Isovue 200 under live fluoroscopy in the AP view confirmed excellent flow along the nerve root, into the epidural space without vascular or intrathecal uptake observed Radiological data, including multiple fluoroscopic views of the lumbosacral spine, reveal a spinal needle at the Left L5/S1 posterior neuroforamen. Subsequent views show flow of contrast material flowing superiorly and inferiorly along the nerve root confirming epidural flow. Subsequently, a test dose of 1.5 cc of 1% lidocaine solution was administered and patient was observed for two minutes for signs or symptoms of complications , including abdominal pain, shortness of breath, bilateral upper or lower extremity weakness, nausea and vomiting, prior to steroid injection. At this point, a total of 3 cc or 20 mg of dexamethasone and 80mg Depo Medrol was injected without incident. The procedure tolerated the procedure well without signs or symptoms of complications prior to transfer to the recovery area continued monitoring without incident. The patient was then transferred to the recovery area where they were observed for an appropriate time after the injection. The patient reported a VAS score of 7 prior to the procedure and a post-procedure VAS of 0. Total Fluoroscopy Time: 20.9 seconds Total Conscious Sedation Time: 24min POST OP INSTRUCTIONS The patient was provided a Pain Log to continue to record their response to the target-specific procedure prior to follow-up visit with their referring physician. Additionally, specific post-injection care instructions and a contact number to our office were provided if concerns arise regarding possible complications associated with the procedure are suspected. Miguel Tovar DO Complications: none
[2018-05-29 12:26] VITALS: BP 122/83; PULSE 86; RESP 16; O2SAT 97
[2018-05-29 12:33] VITALS: BP 122/91; PULSE 85; RESP 16; O2SAT 96
== END 2018-05-29 12:51 | disposition home or self-care (01) ==
PROVIDERS: Family Provider Internal Medicine; PCP Internal Medicine; Visit Provider Physical Medicine & Rehabilitation
DX: M48.07 Spinal stenosis, lumbosacral region (principal); M51.17 Intervertebral disc disorders with radiculopathy, lumbosacral region
CPT/HCPCS: 64483; 99152; J1040; J1100; J2250; J3010

== ENCOUNTER 2018-07-03 08:52 | Outpatient (CLI) | payer OTHER, SELFPAY ==
[2018-07-03] VITALS (7 sets, daily range): BP systolic 123–142; BP diastolic 62–87; PULSE 78–85; RESP 16–20; TEMP 36.3; O2SAT 93–98
--- NOTE | 2018-07-03 08:53 | DI.RAD.S_ITS ---
PROCEDURE: PAIN L/SI FACET INJ/BLK 1STL INDICATIONS: Lumbar spine lumbosacral spondylosis FINDINGS: Fluoroscopic spot filming was performed to verify placement of spinal needles at the L4-L5, L5-S1 level(s), as labeled on the films. Appropriate location(s) of the needle tip(s) was confirmed by injection of iodinated contrast. Dictated by: Cornelius Griffin M.D. on 07/03/2018 at 17:24 Approved by: Cornelius Griffin M.D. on 07/03/2018 at 17:24
[2018-07-03] MEDS: fentaNYL 100 MCG/2 ML INJ 50 MCG IV (09:30)
[2018-07-03] MEDS: MIDAZOLAM 5 MG/5 ML VIAL IV (09:30)
[2018-07-03] MEDS: BUPIVACAINE 0.5% (PF) VIAL 2 ML INJ (09:36)
[2018-07-03] MEDS: BETAMETHASONE 30 MG/5 ML MDV 12 MG INJ (09:37)
[2018-07-03] MEDS: IOPAMIDOL 15 ML VIAL 3 ML INJ (09:37)
[2018-07-03] MEDS: LIDOCAINE 1% 20 ML INJ 5 ML INJ (09:37)
--- NOTE | 2018-07-03 09:50 | PC.NURSE ---
pt tolerated procedure and was able to get off table with 2 person stand by assist. Transferred pt to pre procedure room via wheelchair for continued monitoring with Letty SANCHEZ.
--- NOTE | 2018-07-03 09:51 | P.PCN_ITS ---
Procedures Date/Time Date of procedure: 07/03/18 Time of procedure: 09:49 General Procedure description: PREOP DIAGNOSIS 1. FACET ARTHROPATHY 2. AXIAL LBP 3. MULTILEVEL DDD POST OP DIAGNOSIS 1. FACET ARTHROPATHY 2. AXIAL LBP 3. MULTILEVEL DDD PROCEDURES 1. FLUORSCOPICALLY GUIDED CONTRAST CONTROLLED FACET JOINT INJECTIONS BILATERAL L4/5, L5/S1 PHYSICIAN: Miguel Tovar, DO INDICATIONS Monica is referred by Dr. Santos for treatment of Axial LBP FINDINGS Multilevel Facet Arthropathy with Clinically significant axial LBP DESCRIPTION OF PROCEDURE Fluoroscopically guided, contrast-controlled bilateral L4/5, L5/S1 facet joint injections. Following denial of allergy and review of potential side effects and complications, including, but not necessarily limited to, infection, allergic reaction, local tissue breakdown, stroke, temporary or permanent nerve injury, paralysis, and possible , the patient indicated that the patient understood and agreed to proceed. An informed consent document was signed by the patient, witnessed by a nurse, and placed in the patient's chart. Additionally, other treatment options including medications, modalities, and physical therapy were reviewed with the patient. After review of previous anaesthesic history and IV conscious sedation the patient was deemed safe to proceed with todays procedure with IV conscious sedation as ASA class II designation. Safety time-out was performed to confirm patient ID, procedure to be performed and site of procedure. IV sedation was accomplished with a combination of 4mg of Versed and 50mcg of Fentanyl was administered by the RN after DO order, titrated to patient comfort during the course of the procedure while the patient remained responsive to all verbal commands In the prone position, following sterile prep and drape of the lumbar region, the posterior aspect of the L4/5, L5/S1 facet joints were identified fluoroscopically. The skin was anesthetized via a 25-gauge 1.5-inch needle with 1% lidocaine solution into the corresponding facet joints. At this point, a 22- gauge 3.5-inch spinal needle was atraumatically introduced and advanced under fluoroscopic guidance into the corresponding facet joints. Following negative aspiration, injections of approximately 0.2-cc of Isovue 200 confirmed interarticular placement without vascular uptake. The identical procedure was then performed at the L4/5, L5/S1 facet joints on the left. Radiological data, including multiple fluoroscopic views of the lumbosacral spine, reveal a spinal needle at the L4/5, L5/S1 facet joints bilaterally. Subsequent views show flow of contrast material both superiorly and inferiorly within the joint space without vascular or intrathecal uptake. At this point, a total of 0.5 cc including a mixture of 0.25cc Marcaine and 0.25cc betamethasone was injected without complication into each of the corresponding facet joints. The patient tolerated the procedure well without signs or symptoms of complications prior to transfer to the recovery area continued monitoring without incident. The patient was then transferred to the recovery area where they were observed for an appropriate period of time after the injection. The patient reported a VAS score of 7 prior to the procedure and a post- procedure VAS of 0. Total Fluoroscopy Time: 20.3 seconds Total Conscious Sedation Time: 24min POST OP INSTRUCTIONS The patient was provided a Pain Log to continue to record their response to the target-specific procedure prior to follow-up visit with their referring physician. Additionally, specific post-injection care instructions and a contact number to our office were provided if concerns arise regarding possible complications associated with the procedure are suspected. Miguel Tovar DO Complications: none
--- NOTE | 2018-07-03 09:53 | PC.NURSE ---
ACCEPTED CARE OF PT IN POST PROC AREA IN STABLE CONDITION
== END 2018-07-03 10:08 | disposition home or self-care (01) ==
LOC: RAD 08:52
PROVIDERS: Family Provider Internal Medicine; PCP Internal Medicine; Visit Provider Physical Medicine & Rehabilitation
DX: M47.816 Spondylosis without myelopathy or radiculopathy, lumbar region (principal); M47.817 Spondylosis without myelopathy or radiculopathy, lumbosacral region; M54.5 Low back pain; M51.36 Other intervertebral disc degeneration, lumbar region; M51.37 Other intervertebral disc degeneration, lumbosacral region
CPT/HCPCS: 64493; 64494; 99152; J0702; J2250; J3010

== ENCOUNTER → 2018-07-15 16:45 | Outpatient (CLI) | payer OTHER, SELFPAY | PROVIDERS: Family Provider Physical Medicine & Rehabilitation; PCP Internal Medicine | DX: C61 Malignant neoplasm of prostate (principal) | CPT/HCPCS: 36415; 80053; 84153; 85025 ==

== ENCOUNTER → 2018-09-26 12:09 | Outpatient (CLI) | payer OTHER, SELFPAY ==
--- NOTE | 2018-09-26 | DI.RAD.S_ITS ---
PROCEDURE: XR HIP W PEL IF DONE LT MIN 4V INDICATIONS: HIP PAIN TECHNIQUE: AP pelvis with lateral view(s) of the bilateral hip(s). COMPARISON: [facility], , HIP 2V LEFT, 07/03/2014, 14:23. FINDINGS: Bones: No fractures or dislocations. There is asymmetric mild degree of degenerative joint space thinning, in addition to note made of moderate lower lumbosacral spine degenerative disc disease and facet osteoarthritis involving L4-5 and L5-S1. Pelvic ring appears intact. No suspicious bony lesions. Soft tissues: The visualized bowel gas pattern is normal. No suspicious soft tissue calcifications. Pelvic sidewall surgical clips are present consistent with prior lymph node excision. IMPRESSION: Symmetric mild to joint osteoarthritis bilaterally. Note made of multiple bilateral pelvic sidewall surgical clips consistent with node excision, and there is no evidence of metastatic disease. Dictated by: Kris Kebede M.D. on 09/26/2018 at 12:56 Approved by: Kris Kebede M.D. on 09/26/2018 at 12:58
--- NOTE | 2018-09-26 | DI.RAD.S_ITS ---
PROCEDURE: XR KNEE LT 3V INDICATIONS: LT KNEE PAIN TECHNIQUE: 3 views of the knee were acquired. COMPARISON: [facility], , KNEE 3V RIGHT, 11/06/2006, 9:40. [facility], , KNEE 3V LEFT, 11/06/2006, 9:40. FINDINGS: Bones: No fractures or dislocations. No suspicious bony lesions. Soft tissues: No joint effusion. No suspicious soft tissue calcifications. IMPRESSION: Normal for age, source of current left knee pain symptoms is not seen. Dictated by: Kris Kebede M.D. on 09/26/2018 at 13:07 Approved by: Kris Kebede M.D. on 09/26/2018 at 13:07
--- NOTE | 2018-09-26 | DI.RAD.S_ITS ---
PROCEDURE: XR KNEE RT 3V INDICATIONS: RT KNEE PAIN TECHNIQUE: 3 views of the knee were acquired. COMPARISON: [facility], , KNEE 3V RIGHT, 11/06/2006, 9:40. [facility], , KNEE 3V LEFT, 11/06/2006, 9:40. FINDINGS: Bones: No fractures or dislocations. No suspicious bony lesions. Soft tissues: No joint effusion. No suspicious soft tissue calcifications. IMPRESSION: Normal for age, source of current knee pain symptoms is not seen. Dictated by: Kris Kebede M.D. on 09/26/2018 at 13:06 Approved by: Kris Kebede M.D. on 09/26/2018 at 13:06
== END ==
PROVIDERS: Family Provider Physical Medicine & Rehabilitation; PCP Internal Medicine; Visit Provider Internal Medicine
DX: M25.552 Pain in left hip (principal); M16.0 Bilateral primary osteoarthritis of hip; M25.562 Pain in left knee; M25.561 Pain in right knee
CPT/HCPCS: 73522; 73562

== ENCOUNTER → 2018-11-28 14:40 | Oncology outpatient (ONC) | payer OTHER, SELFPAY ==
[2018-04-23 14:13] LABS: Add Manual Diff / Slide Review NO; Basophils Percent Auto 0.9 % (0-2); Eosinophils Percent Auto 2.8 % (2-4); Hematocrit 42.1 % (41-53); Hemoglobin 13.8 g/dL (13.5-17.5); Lymphocytes Percent Auto 26.1 % (25-40); Mean Corpuscular HGB Conc 32.7 % (30-36); Mean Corpuscular Hemoglobin 27.8 PG (26-34); Mean Corpuscular Volume 85.2 fL (80-100); Neutrophils Absolute Auto 5600 /uL (1500-7000); Neutrophils Percent Auto 63.2 % (50-75); Platelet Count 199 X10^3/uL (150-400); Red Blood Cell Count 4.94 X10^6/uL (4.5-5.9); Red Cell Distribution Width 13.3 % (11.6-14.8); White Blood Cell Count 8.8 X10^3/uL (4.5-11.0)
[2018-04-23 14:24] LABS: Alanine Aminotransferase 104 IU/L (21-72); Albumin 4.6 g/dL (3.5-5.0); Albumin Globulin Ratio 1.7 (1.0-2.8); Alkaline Phosphatase 88 U/L (38-126); Aspartate Aminotransferase 74 IU/L (17-59); BUN Creatinine Ratio 22.5 (6-22); Bilirubin Total 0.3 mg/dL (0.2-1.3); Blood Urea Nitrogen 18 mg/dL (9-20); Calcium 10.1 mg/dL (8.4-10.2); Carbon Dioxide 24 mmol/L (22-32); Chloride 104 mmol/L (98-107); Estimated Glomerular Filt Rate > 60.0 mL/min (>60); Globulin 2.7 g/dL (1.7-4.1); Glucose 149 mg/dL (80-110); HEMOLYSIS < 15 (0-50); Lactate Dehydrogenase 471 U/L (313-618); Sodium 143 mmol/L (137-145); Total Protein 7.3 g/dL (6.3-8.2)
[2018-04-23 14:55] LABS: Prostate Specific Antigen 0.234 ng/mL (0.10-4.00)
[2018-04-24 16:11] VITALS: BP 120/72; PULSE 91; RESP 18; TEMP 37.1; O2SAT 97
--- NOTE | 2018-04-24 16:44 | ONC.PN ---
PN -Subjective Interval history: Diagnosis: Metastatic prostate cancer, [place] 7 Previous treatment: 1. Prostatectomy in May 2008 for T3 be N0 [place] 7 prostate cancer with a positive margin 2. Radiation therapy to the prostate bed in 2009 3. Metastatic disease diagnosed in April 2017 with a PSA of 8.4. CT scan showed pelvic and retroperitoneal adenopathy. He started Lupron but stopped in November 2017 because of side effects. Interval history: Patient is a 68-year-old man who returns today for follow-up of metastatic prostate cancer. He had stopped his Lupron in November because of concerns about hot flashes as well as worsening arthritis and fatigue. Since stopping, his hot flashes have improved although not completely resolved. His arthritis has been about the same. He still has some ongoing fatigue. He was given a prescription for Casodex to try instead but did not take it. He denies any new aches or pains. His appetite has been good. No shortness of breath or cough. He has not noted any adenopathy. He denies any urinary complaints. He denies any other changes in his health. His past medical history is notable for arthritis involving the spine especially. He has a history of hypertension hyperlipidemia and diabetes. - Patient Self-Reported Symptoms SR Constitution: Fatigue/Malaise, Night Sweats SR ears, nose, mouth, throat issues: Congestion, Cough, Hoarseness SR respiratory issues: Cough, Mucous SR Genitourinary issues: Frequent urination, Blood in urine, Incontinence SR Musculoskeletal issues: Joint pain or swelling, Muscle weakness, Muscle pain or cramps, Back or neck pain, Bone pain SR Neuro issues: Headache, Numbness or tingling Home Medications and Allergies Home Medications Medication Instructions Recorded Confirmed Type aspirin 81 mg PO QDAY #0 05/25/17 03/14/18 History calcium carbonate [Tums] 500 mg PO QDAY #0 05/25/17 03/14/18 History fluoxetine 10 mg PO Q DAY #0 05/25/17 03/14/18 History fluticasone 2 spray INTRANASAL QDAYP PRN #0 05/25/17 03/14/18 History glipizide 5 mg PO AMAC #0 05/25/17 03/14/18 History hydrochlorothiazide 12.5 mg PO QDAY #0 05/25/17 03/14/18 History lisinopril 20 mg PO BID #0 05/25/17 03/14/18 History metformin [Glucophage] 1,000 mg PO BIDCC #0 05/25/17 03/14/18 History multivitamin [Multiple Vitamins] 1 tab PO QDAY #0 05/25/17 03/14/18 History omeprazole 20 mg PO QDAY #0 05/25/17 03/14/18 History oxycodone 5 mg PO PRN PRN #0 05/25/17 03/14/18 History ropinirole 2 mg PO HS #0 05/25/17 03/14/18 History simvastatin 10 mg PO QDAY #0 05/25/17 03/14/18 History zolpidem 5 mg PO HS #0 05/25/17 03/14/18 History lactobacillus combination no.4 3,000 mmu cells PO DAILY 01/28/18 03/14/18 History [Probiotic] melatonin 5 mg PO BEDTIME PRN 01/28/18 03/14/18 History pomegranate fruit extract 01/28/18 03/14/18 History celecoxib 200 mg capsule 200 mg PO DAILY #30 cap 03/14/18 Rx Allergies Allergy/AdvReac Type Severity Reaction Status Date / Time amoxicillin [From Augmentin] Allergy Mild Verified 03/14/18 09:15 clavulanic acid Allergy Mild Verified 03/14/18 09:15 [From Augmentin] bee sting Allergy Mild Uncoded 03/14/18 09:15 Exam - Constitutional positive no acute distress, positive obese - Routine HEENT Exam Head: Present: normocephalic, atraumatic Eye: Present: EOMI, PERRL. Absent: conjunctival icterus, scleral injection ENT: Present: mucous membranes moist, oropharynx clear - Routine Neck Exam Present: supple. Absent: lymphadenopathy, thyromegaly - Routine Respiratory Exam Present: Clear to auscultation bilaterally. Absent: rales, wheezes - Routine Cardiovascular Exam Present: RRR, S1, S2. Absent: murmur - Routine Abdominal Exam Present: soft, normoactive bowel sounds. Absent: tenderness - Routine Extremities Exam Absent: cyanosis, clubbing, edema - Routine Skin Exam Present: intact. Absent: petechiae, rash - Routine Neurological Exam Present: alert, oriented X3 - Routine Psychiatric Exam Present: normal affect, normal thought process Results - Labs Laboratory Last Values WBC 8.8 X10^3/uL (4.5-11.0) 04/23/18 14:03 RBC 4.94 X10^6/uL (4.5-5.9) 04/23/18 14:03 Hgb 13.8 g/dL (13.5-17.5) 04/23/18 14:03 Hct 42.1 % (41-53) 04/23/18 14:03 MCV 85.2 fL (80-100) 04/23/18 14:03 MCH 27.8 PG (26-34) 04/23/18 14:03 MCHC 32.7 % (30-36) 04/23/18 14:03 RDW 13.3 % (11.6-14.8) 04/23/18 14:03 Plt Count 199 X10^3/uL (150-400) 04/23/18 14:03 Neut % (Auto) 63.2 % (50-75) 04/23/18 14:03 Lymph % (Auto) 26.1 % (25-40) 04/23/18 14:03 [place] % (Auto) 7.0 % (3-14) 04/23/18 14:03 Eos % (Auto) 2.8 % (2-4) 04/23/18 14:03 Baso % (Auto) 0.9 % (0-2) 04/23/18 14:03 Neut # (Auto) 5600 /uL (9717-4371) 04/23/18 14:03 Sodium 143 mmol/L (137-145) 04/23/18 14:03 Potassium 4.0 mmol/L (3.4-5.1) 04/23/18 14:03 Chloride 104 mmol/L (98-107) 04/23/18 14:03 Carbon Dioxide 24 mmol/L (22-32) 04/23/18 14:03 BUN 18 mg/dL (9-20) 04/23/18 14:03 Creatinine 0.80 mg/dL (0.66-1.25) 04/23/18 14:03 Estimated GFR > 60.0 mL/min (>60) 04/23/18 14:03 BUN/Creatinine Ratio 22.5 (6-22) H 04/23/18 14:03 Glucose 149 mg/dL (80-110) H 04/23/18 14:03 Calcium 10.1 mg/dL (8.4-10.2) 04/23/18 14:03 Total Bilirubin 0.3 mg/dL (0.2-1.3) 04/23/18 14:03 AST 74 IU/L (17-59) H 04/23/18 14:03 ALT 104 IU/L (21-72) H 04/23/18 14:03 Alkaline Phosphatase 88 U/L (38-126) 04/23/18 14:03 Lactate Dehydrogenase 471 U/L (313-618) 04/23/18 14:03 Total Protein 7.3 g/dL (6.3-8.2) 04/23/18 14:03 Albumin 4.6 g/dL (3.5-5.0) 04/23/18 14:03 Globulin 2.7 g/dL (1.7-4.1) 04/23/18 14:03 Albumin/Globulin Ratio 1.7 (1.0-2.8) 04/23/18 14:03 Prostate Specific Ag 0.234 ng/mL (0.10-4.00) 04/23/18 14:03 Testosterone Level 162.0 ng/dL (71.8-623) 04/23/18 14:03 - Imaging Additional studies: Procedures Colonoscopy (10/28/12) Injection or infusion of other therapeutic or prophylactic substance (02/28/13) Assessment and Plan (1) Prostate cancer Current visit: No Status: Acute 68-year-old man with metastatic prostate cancer. He stopped his hormone therapy about 6 months ago. His testosterone level is beginning to increase in his PSA is rising. He does not have any symptoms related to his cancer at this time. I did explain however that the randomized trials have shown a better long-term outcome with continuous compared intermittent therapy in man with metastatic disease. We did talk about potentially using high-dose Casodex instead of Lupron. This has shown nearly equivalent effectiveness but with increased toxicity especially in the form of gynecomastia hot flashes. We talked about the liver hormone agents along with Lupron including Zytiga and prednisone or upfront Taxotere. Given his previous side effects I do not think that he is likely to tolerate either of those at this time. Likewise he has relatively low risk disease. His PSA is not markedly elevated. He did have a relatively long disease-free interval. He is willing to resume his Lupron. We will give him a shot today. He will return to clinic in 3 months for follow-up.
[2018-04-24] MEDS: LEUPROLIDE DEPOT [ELIGARD] 22.5 MG SYR SUBCUT (16:47)
--- NOTE | 2018-04-24 16:47 | ONC.SCHED ---
MARVA IS NOT LISTED NEEDING PRIOR AUTH THROUGH [facility]
[2018-07-15 15:02] LABS: Add Manual Diff / Slide Review NO; Basophils Absolute Auto 100 /uL (0-100); Basophils Percent Auto 0.8 % (0-2); Eosinophils Absolute Auto 200 /uL (0-450); Eosinophils Percent Auto 2.7 % (2-4); Hematocrit 41.2 % (41-53); Hemoglobin 13.6 g/dL (13.5-17.5); Lymphocytes Absolute Auto 1400 /uL (1100-4500); Lymphocytes Percent Auto 19.4 % (25-40); Mean Corpuscular HGB Conc 32.9 % (30-36); Mean Corpuscular Hemoglobin 27.7 PG (26-34); Mean Corpuscular Volume 84.2 fL (80-100); Monocytes Absolute Auto 500 /uL (0-900); Monocytes Percent Auto 6.9 % (3-14); Neutrophils Absolute Auto 5100 /uL (1500-7000); Neutrophils Percent Auto 70.2 % (50-75); Platelet Count 166 X10^3/uL (150-400); Red Cell Distribution Width 13.7 % (11.6-14.8); White Blood Cell Count 7.3 X10^3/uL (4.5-11.0)
[2018-07-15 15:15] LABS: Alanine Aminotransferase 214 IU/L (21-72); Albumin 4.6 g/dL (3.5-5.0); Albumin Globulin Ratio 1.4 (1.0-2.8); Alkaline Phosphatase 91 U/L (38-126); Aspartate Aminotransferase 275 IU/L (17-59); BUN Creatinine Ratio 21.3 (6-22); Bilirubin Total 0.5 mg/dL (0.2-1.3); Blood Urea Nitrogen 17 mg/dL (9-20); Calcium 10.1 mg/dL (8.4-10.2); Carbon Dioxide 28 mmol/L (22-32); Chloride 99 mmol/L (98-107); Estimated Glomerular Filt Rate > 60.0 mL/min (>60); Globulin 3.2 g/dL (1.7-4.1); Glucose 128 mg/dL (80-110); HEMOLYSIS < 15 (0-50); Potassium 3.9 mmol/L (3.4-5.1); Sodium 139 mmol/L (137-145); Total Protein 7.8 g/dL (6.3-8.2)
[2018-07-15 15:47] LABS: Prostate Specific Antigen < 0.064 ng/mL (0.10-4.00)
[2018-07-23 13:51] VITALS: BP 141/82; PULSE 83; RESP 16; TEMP 37.1; O2SAT 96
--- NOTE | 2018-07-23 14:01 | ONC.PN ---
PN -Subjective Interval history: Diagnosis: Metastatic prostate cancer, [place] 7 Previous treatment: 1. Prostatectomy in May 2008 for T3 be N0 [place] 7 prostate cancer with a positive margin 2. Radiation therapy to the prostate bed in 2009 3. Metastatic disease diagnosed in April 2017 with a PSA of 8.4. CT scan showed pelvic and retroperitoneal adenopathy. He started Lupron but stopped in November 2017 because of side effects. He resume therapy in April 2018. Interval history: Patient is a 68-year-old man who returns today for follow-up of metastatic prostate cancer. He had stopped his Lupron in November because of concerns about hot flashes as well as worsening arthritis and fatigue. Since stopping, his hot flashes had improved although not completely resolved. His arthritis has been about the same. He had some ongoing fatigue. Because of a rising PSA, he started back on Lupron in April. He notes recurrence of his hot flashes and worsening fatigue. His arthritis has been persistent but he is not sure if it has progressed. He has had some muscle cramps as well. He did get a steroid injection in his back which has helped a little bit. He has noted some thinning of his hair. His appetite has been good. He denies any shortness of breath or cough. No abdominal complaints. He does have nocturia 3-4 times per night. He has not noted any adenopathy. He denies any other changes in his health. His past medical history is notable for arthritis involving the spine especially. He has a history of hypertension hyperlipidemia and diabetes. - Patient Self-Reported Symptoms SR Constitution: Night Sweats SR ears, nose, mouth, throat issues: Ears ringing, Cough SR respiratory issues: Cough, Mucous SR Skin issues: Dry skin, Skin rash or itching, Hair loss or scalp prob SR Gastrointestinal issues: Abdominal pain SR Genitourinary issues: Frequent urination, Incontinence SR Musculoskeletal issues: Joint pain or swelling, Muscle weakness, Muscle pain or cramps, Back or neck pain, Cold hands or feet, Difficulty walking SR Neuro issues: Headache, Lightheaded/dizzy, Numbness or tingling, Tremors or shaking, Difficulty balancing SR Hematologic issues: Slow healing SR Endocrine issues: Excessive thirst, Excessive urination, Hot flashes Home Medications and Allergies Home Medications Medication Instructions Recorded Confirmed Type aspirin 81 mg PO QDAY #0 05/25/17 04/26/18 History calcium carbonate [Tums] 500 mg PO QDAY #0 05/25/17 04/26/18 History fluoxetine 10 mg PO Q DAY #0 05/25/17 04/26/18 History fluticasone propionate 2 spray INTRANASAL QDAYP PRN #0 05/25/17 04/26/18 History glipizide 5 mg PO AMAC #0 05/25/17 04/26/18 History hydrochlorothiazide 12.5 mg PO QDAY #0 05/25/17 04/26/18 History lisinopril 20 mg PO BID #0 05/25/17 04/26/18 History metformin [Glucophage] 1,000 mg PO BIDCC #0 05/25/17 04/26/18 History multivitamin [Multiple Vitamins] 1 tab PO QDAY #0 05/25/17 04/26/18 History omeprazole 20 mg PO QDAY #0 05/25/17 04/26/18 History oxycodone 5 mg PO PRN PRN #0 05/25/17 04/26/18 History ropinirole 2 mg PO HS #0 05/25/17 04/26/18 History simvastatin 10 mg PO QDAY #0 05/25/17 04/26/18 History zolpidem 5 mg PO HS #0 05/25/17 04/26/18 History melatonin 5 mg PO BEDTIME PRN 01/28/18 04/26/18 History pomegranate fruit extract 01/28/18 04/26/18 History celecoxib 200 mg capsule 200 mg PO DAILY #30 cap 03/14/18 04/26/18 Rx cyanocobalamin (vitamin B-12) 1,000 mcg PO DAILY 04/26/18 04/26/18 History 1,000 mcg capsule luprine shot SUBCUT 04/26/18 04/26/18 History gabapentin 300 mg capsule 300 mg PO TID #90 cap 06/12/18 Rx levofloxacin 500 mg tablet 500 mg PO DAILY 06/20/18 06/20/18 History Allergies Allergy/AdvReac Type Severity Reaction Status Date / Time amoxicillin [From Augmentin] Allergy Mild Vomiting Verified 06/20/18 09:33 clavulanic acid Allergy Mild Vomiting Verified 06/20/18 09:33 [From Augmentin] midazolam [From Versed] AdvReac Mild Shakiness Verified 06/20/18 09:33 bee sting Allergy Mild Swelling Uncoded 06/20/18 09:33 of Lip/Tongue/Throat Exam Vital signs: Vital Signs Temp Pulse Resp BP Pulse Ox 07/23/18 13:51 98.7 F 83 16 141/82 H 96 Intake and Output 07/22/18 07/23/18 07/23/18 23:59 07:59 15:59 Other: Weight 90 kg Patient Weight 07/23/18 23:59 Weight 90 kg - Constitutional positive no acute distress, positive obese - Routine HEENT Exam Head: Present: normocephalic, atraumatic Eye: Present: EOMI, PERRL. Absent: conjunctival icterus, scleral injection ENT: Present: mucous membranes moist, oropharynx clear - Routine Neck Exam Present: supple. Absent: lymphadenopathy, thyromegaly - Routine Respiratory Exam Present: Clear to auscultation bilaterally. Absent: rales, wheezes - Routine Cardiovascular Exam Present: RRR, S1, S2. Absent: murmur - Routine Abdominal Exam Present: soft, normoactive bowel sounds. Absent: tenderness, organomegaly, mass - Routine Extremities Exam Absent: cyanosis, clubbing, edema - Routine Back/Spine Exam Back/Spine: Absent: paraspinal tenderness, vertebral tenderness - Routine Skin Exam Present: intact. Absent: petechiae, rash - Routine Neurological Exam Present: alert, oriented X3 - Routine Psychiatric Exam Present: normal affect, normal thought process Results - Labs Laboratory Last Values WBC 7.3 X10^3/uL (4.5-11.0) 07/15/18 08:35 RBC 4.90 X10^6/uL (4.5-5.9) 07/15/18 08:35 Hgb 13.6 g/dL (13.5-17.5) 07/15/18 08:35 Hct 41.2 % (41-53) 07/15/18 08:35 MCV 84.2 fL (80-100) 07/15/18 08:35 MCH 27.7 PG (26-34) 07/15/18 08:35 MCHC 32.9 % (30-36) 07/15/18 08:35 RDW 13.7 % (11.6-14.8) 07/15/18 08:35 Plt Count 166 X10^3/uL (150-400) 07/15/18 08:35 Neut % (Auto) 70.2 % (50-75) 07/15/18 08:35 Lymph % (Auto) 19.4 % (25-40) L 07/15/18 08:35 Ballard % (Auto) 6.9 % (3-14) 07/15/18 08:35 Eos % (Auto) 2.7 % (2-4) 07/15/18 08:35 Baso % (Auto) 0.8 % (0-2) 07/15/18 08:35 Neut # (Auto) 5100 /uL (0204-2138) 07/15/18 08:35 Lymph # (Auto) 1400 /uL (8423-9072) 07/15/18 08:35 Ballard # (Auto) 500 /uL (0-900) 07/15/18 08:35 Eos # (Auto) 200 /uL (0-450) 07/15/18 08:35 Baso # (Auto) 100 /uL (0-100) 07/15/18 08:35 Sodium 139 mmol/L (137-145) 07/15/18 08:35 Potassium 3.9 mmol/L (3.4-5.1) 07/15/18 08:35 Chloride 99 mmol/L (98-107) 07/15/18 08:35 Carbon Dioxide 28 mmol/L (22-32) 07/15/18 08:35 BUN 17 mg/dL (9-20) 07/15/18 08:35 Creatinine 0.80 mg/dL (0.66-1.25) 07/15/18 08:35 Estimated GFR > 60.0 mL/min (>60) 07/15/18 08:35 BUN/Creatinine Ratio 21.3 (6-22) 07/15/18 08:35 Glucose 128 mg/dL (80-110) H 07/15/18 08:35 Calcium 10.1 mg/dL (8.4-10.2) 07/15/18 08:35 Total Bilirubin 0.5 mg/dL (0.2-1.3) 07/15/18 08:35 AST 275 IU/L (17-59) H 07/15/18 08:35 ALT 214 IU/L (21-72) H 07/15/18 08:35 Alkaline Phosphatase 91 U/L (38-126) 07/15/18 08:35 Lactate Dehydrogenase 471 U/L (313-618) 04/23/18 14:03 Total Protein 7.8 g/dL (6.3-8.2) 07/15/18 08:35 Albumin 4.6 g/dL (3.5-5.0) 07/15/18 08:35 Globulin 3.2 g/dL (1.7-4.1) 07/15/18 08:35 Albumin/Globulin Ratio 1.4 (1.0-2.8) 07/15/18 08:35 Prostate Specific Ag < 0.064 ng/mL (0.10-4.00) L 07/15/18 08:35 Testosterone Level 162.0 ng/dL (71.8-623) 04/23/18 14:03 - Imaging Additional studies: Procedures Colonoscopy (10/28/12) Injection or infusion of other therapeutic or prophylactic substance (02/28/13) Assessment and Plan (1) Prostate cancer Current visit: No Status: Acute 68-year-old man with metastatic prostate cancer. Since stopping his Lupron, his PSA had been increasing and he had not noticed any significant improvement in his quality of life. He resumed Lupron in April and notes that is side effects of recurred. Fortunately, his PSA has diminished in his neck currently undetectable. He does have an appointment on Sunday at the [facility] in [place]. He would like to hold off on his Lupron until after talking to the physician there. He had questions regarding the role of a next generation sequencing. I explained that this could potentially identify actionable mutations which might lead to a targeted therapy. The likelihood of finding such a mutation is low. Generally, that test is done when other therapies that have proven survival benefit have already been used. It is possible that the new mutations can develop over time. The panel of genes tested has been evolving over time as the number of actionable mutations has been increasing. I think it would be more helpful to do that test when he becomes hormone refractory. He also had questions today regarding further imaging. His previous CT scan had shown adenopathy that was presumed to be metastatic but not biopsied. A given that his current PSA is undetectable, I do not think that there is likely to be any evidence of progression on his scan. I would expect that his adenopathy is probably diminished in size. We will hold his Lupron today. He will follow up with his oncologist at the [facility] in [place] on Sunday. If he elects to go ahead with Lupron and wants to get his injection here, we will trying get him scheduled for that. If he elects to use intermittent hormonal therapy or if he elects to get treatment at the [facility], he will return to clinic in about 3 months for follow-up.
[2018-09-04 15:24] VITALS: BP 158/71; PULSE 91; RESP 18; TEMP 36.8; O2SAT 95
[2018-09-04] MEDS: LEUPROLIDE DEPOT [ELIGARD] 22.5 MG SYR SUBCUT (15:28)
[2018-10-21 11:01] LABS: Add Manual Diff / Slide Review NO; Basophils Absolute Auto 100 /uL (0-100); Basophils Percent Auto 1.2 % (0-2); Eosinophils Absolute Auto 300 /uL (0-450); Eosinophils Percent Auto 3.8 % (2-4); Hematocrit 39.9 % (41-53); Hemoglobin 13.3 g/dL (13.5-17.5); Lymphocytes Absolute Auto 2300 /uL (1100-4500); Lymphocytes Percent Auto 30.3 % (25-40); Mean Corpuscular HGB Conc 33.3 % (30-36); Mean Corpuscular Hemoglobin 28.3 PG (26-34); Mean Corpuscular Volume 84.8 fL (80-100); Monocytes Absolute Auto 600 /uL (0-900); Monocytes Percent Auto 8.4 % (3-14); Neutrophils Absolute Auto 4300 /uL (1500-7000); Neutrophils Percent Auto 56.3 % (50-75); Platelet Count 171 X10^3/uL (150-400); Red Blood Cell Count 4.71 X10^6/uL (4.5-5.9); Red Cell Distribution Width 13.1 % (11.6-14.8); White Blood Cell Count 7.6 X10^3/uL (4.5-11.0)
[2018-10-21 11:23] LABS: Alanine Aminotransferase 111 IU/L (21-72); Albumin 4.3 g/dL (3.5-5.0); Albumin Globulin Ratio 1.7 (1.0-2.8); Alkaline Phosphatase 101 U/L (38-126); Aspartate Aminotransferase 83 IU/L (17-59); Bilirubin Total 0.4 mg/dL (0.2-1.3); Blood Urea Nitrogen 12 mg/dL (9-20); Calcium 10.2 mg/dL (8.4-10.2); Carbon Dioxide 28 mmol/L (22-32); Chloride 100 mmol/L (98-107); Estimated Glomerular Filt Rate > 60.0 mL/min (>60); Globulin 2.5 g/dL (1.7-4.1); Glucose 217 mg/dL (80-110); HEMOLYSIS < 15 (0-50); Potassium 4.2 mmol/L (3.4-5.1); Sodium 138 mmol/L (137-145); Total Protein 6.8 g/dL (6.3-8.2)
[2018-10-21 11:55] LABS: Prostate Specific Antigen < 0.064 ng/mL (0.10-4.00)
[2018-10-22 14:17] VITALS: BP 144/88; PULSE 78; RESP 16; TEMP 37; O2SAT 96
--- NOTE | 2018-10-22 14:40 | P.PNONC_ITS ---
PN -Subjective Interval history: Diagnosis: Metastatic prostate cancer, Edd 7 Previous treatment: 1. Prostatectomy in May 2008 for T3 be N0 [place] 7 prostate cancer with a positive margin 2. Radiation therapy to the prostate bed in 2009 3. Metastatic disease diagnosed in April 2017 with a PSA of 8.4. CT scan showed pelvic and retroperitoneal adenopathy. He started Lupron but stopped in November 2017 because of side effects. He resume therapy in April 2018. Interval history: Patient is a 68-year-old man who returns today for follow-up of metastatic prostate cancer. He had his most recent Lupron in September. Since then, he has been feeling reasonably well. He has been bothered by some back pain. He was evaluated with an x-ray and told that he had a pinched nerve. He has an appointment with another physician in November. He notes widespread joint pain. He has been taking some Tylenol but does not really find it very helpful. He denies any nausea or vomiting. He has not had any hot flashes. His appetite has been good. He denies any shortness of breath or cough. No urinary complaints. He also notes that he has had some recent upper respiratory congestion that he thinks may be allergies. He denies any other changes in his health. His past medical history is notable for arthritis involving the spine especia lly. He has a history of hypertension hyperlipidemia and diabetes. - Patient Self-Reported Symptoms SR Constitution: Fatigue/Malaise, Night Sweats SR ears, nose, mouth, throat issues: Ears ringing, Congestion SR respiratory issues: Cough, Mucous SR Skin issues: Dry skin, Skin rash or itching, Hair loss or scalp prob SR Gastrointestinal issues: Abdominal pain SR Genitourinary issues: Frequent urination, Incontinence SR Musculoskeletal issues: Joint pain or swelling, Muscle pain or cramps, Back or neck pain, Bone pain SR Neuro issues: Headache, Numbness or tingling, Tremors or shaking, Difficulty balancing SR Hematologic issues: Slow healing SR Endocrine issues: Excessive thirst, Excessive urination, Hot flashes Home Medications and Allergies Home Medications Medication Instructions Recorded Confirmed Type aspirin 81 mg PO QDAY #0 05/25/17 08/16/18 History calcium carbonate [Tums] 500 mg PO QDAY #0 05/25/17 08/16/18 History fluoxetine 10 mg PO Q DAY #0 05/25/17 08/16/18 History fluticasone propionate 2 spray INTRANASAL QDAYP PRN #0 05/25/17 08/16/18 History glipizide 5 mg PO BID #0 05/25/17 08/16/18 History hydrochlorothiazide 12.5 mg PO QDAY #0 05/25/17 08/16/18 History lisinopril 20 mg PO BID #0 05/25/17 08/16/18 History metformin [Glucophage] 1,000 mg PO BIDCC #0 05/25/17 08/16/18 History multivitamin [Multiple Vitamins] 1 tab PO QDAY #0 05/25/17 08/16/18 History omeprazole 20 mg PO QDAY #0 05/25/17 08/16/18 History oxycodone 5 mg PO PRN PRN #0 05/25/17 08/16/18 History ropinirole 2 mg PO HS #0 05/25/17 08/16/18 History simvastatin 10 mg PO QDAY #0 05/25/17 08/16/18 History zolpidem 5 mg PO HS #0 05/25/17 08/16/18 History melatonin 5 mg PO BEDTIME PRN 01/28/18 08/16/18 History pomegranate fruit extract 01/28/18 08/16/18 History cyanocobalamin (vitamin B-12) 1,000 mcg PO DAILY 04/26/18 08/16/18 History 1,000 mcg capsule luprine shot SUBCUT 04/26/18 08/16/18 History Allergies Allergy/AdvReac Type Severity Reaction Status Date / Time amoxicillin [From Augmentin] Allergy Mild Vomiting Verified 08/16/18 13:58 clavulanic acid Allergy Mild Vomiting Verified 08/16/18 13:58 [From Augmentin] midazolam [From Versed] AdvReac Mild Shakiness Verified 08/16/18 13:58 bee sting Allergy Mild Swelling Uncoded 08/16/18 13:58 of Lip/Tongue/Throat Exam Vital signs: Vital Signs Temp Pulse Resp BP Pulse Ox 10/22/18 14:17 98.6 F 78 16 144/88 H 96 Intake and Output 10/21/18 10/22/18 10/22/18 23:59 07:59 15:59 Other: Weight 88.6 kg Patient Weight 10/22/18 23:59 Weight 88.6 kg - Constitutional positive no acute distress, positive obese - Routine HEENT Exam Head: Present: normocephalic, atraumatic Eye: Present: EOMI, PERRL. Absent: conjunctival icterus, scleral injection ENT: Present: mucous membranes moist, oropharynx clear - Routine Neck Exam Present: supple. Absent: lymphadenopathy, thyromegaly - Routine Respiratory Exam Present: Clear to auscultation bilaterally. Absent: rales, wheezes - Routine Cardiovascular Exam Present: RRR, S1, S2. Absent: murmur - Routine Abdominal Exam Present: soft, normoactive bowel sounds. Absent: tenderness Comments: The liver edge is palpable about 3-4 finger breaths below the costal margin. - Routine Extremities Exam Absent: cyanosis, clubbing, edema - Routine Back/Spine Exam Back/Spine: Present: paraspinal tenderness. Absent: vertebral tenderness - Routine Skin Exam Present: intact. Absent: petechiae, rash - Routine Neurological Exam Present: alert, oriented X3 - Routine Psychiatric Exam Present: normal affect, normal thought process Results - Labs Laboratory Last Values WBC 7.6 X10^3/uL (4.5-11.0) 10/21/18 10:50 RBC 4.71 X10^6/uL (4.5-5.9) 10/21/18 10:50 Hgb 13.3 g/dL (13.5-17.5) L 10/21/18 10:50 Hct 39.9 % (41-53) L 10/21/18 10:50 MCV 84.8 fL (80-100) 10/21/18 10:50 MCH 28.3 PG (26-34) 10/21/18 10:50 MCHC 33.3 % (30-36) 10/21/18 10:50 RDW 13.1 % (11.6-14.8) 10/21/18 10:50 Plt Count 171 X10^3/uL (150-400) 10/21/18 10:50 Neut % (Auto) 56.3 % (50-75) 10/21/18 10:50 Lymph % (Auto) 30.3 % (25-40) 10/21/18 10:50 [place] % (Auto) 8.4 % (3-14) 10/21/18 10:50 Eos % (Auto) 3.8 % (2-4) 10/21/18 10:50 Baso % (Auto) 1.2 % (0-2) 10/21/18 10:50 Neut # (Auto) 4300 /uL (5704-3327) 10/21/18 10:50 Lymph # (Auto) 2300 /uL (2423-9182) 10/21/18 10:50 [place] # (Auto) 600 /uL (0-900) 10/21/18 10:50 Eos # (Auto) 300 /uL (0-450) 10/21/18 10:50 Baso # (Auto) 100 /uL (0-100) 10/21/18 10:50 Sodium 138 mmol/L (137-145) 10/21/18 10:50 Potassium 4.2 mmol/L (3.4-5.1) 10/21/18 10:50 Chloride 100 mmol/L (98-107) 10/21/18 10:50 Carbon Dioxide 28 mmol/L (22-32) 10/21/18 10:50 BUN 12 mg/dL (9-20) 10/21/18 10:50 Creatinine 0.80 mg/dL (0.66-1.25) 10/21/18 10:50 Estimated GFR > 60.0 mL/min (>60) 10/21/18 10:50 BUN/Creatinine Ratio 15.0 (6-22) 10/21/18 10:50 Glucose 217 mg/dL (80-110) H 10/21/18 10:50 Calcium 10.2 mg/dL (8.4-10.2) 10/21/18 10:50 Total Bilirubin 0.4 mg/dL (0.2-1.3) 10/21/18 10:50 AST 83 IU/L (17-59) H 10/21/18 10:50 ALT 111 IU/L (21-72) H 10/21/18 10:50 Alkaline Phosphatase 101 U/L (38-126) 10/21/18 10:50 Lactate Dehydrogenase 471 U/L (313-618) 04/23/18 14:03 Total Protein 6.8 g/dL (6.3-8.2) 10/21/18 10:50 Albumin 4.3 g/dL (3.5-5.0) 10/21/18 10:50 Globulin 2.5 g/dL (1.7-4.1) 10/21/18 10:50 Albumin/Globulin Ratio 1.7 (1.0-2.8) 10/21/18 10:50 Prostate Specific Ag < 0.064 ng/mL (0.10-4.00) L 10/21/18 10:50 Testosterone Level 162.0 ng/dL (71.8-623) 04/23/18 14:03 - Imaging Additional studies: Procedures Colonoscopy (10/28/12) Injection or infusion of other therapeutic or prophylactic substance (02/28/13) Assessment and Plan (1) Prostate cancer Current visit: No Status: Acute 68-year-old man with metastatic prostate cancer. He is tolerating his Lupron reasonably well. His PSA is undetectable. He will continue with his current regimen and return to clinic in about 2 months for follow-up. He did have a genetic testing done in [place] and was found to have a mutation in [place].
--- NOTE | 2018-11-06 14:58 | ONC.SCHED ---
Masoud Clarke, I received an unusual call from [facility] on behalf of this patient.? They were trying to schedule an apt. for him.? She gave me name and date of and I even asked for address and looked up the patient and found the patient did not have VA insurance at all.? I didn?t give her any of his information because we usually don?t get calls from the insurance company trying to schedule apt.?s for patients.? She knew that he saw Dr. Reina but I wanted to be careful regarding privacy for the patient so after talking with Luba who checked to make sure he didn?t have VA I told her that I didn?t have a patient matching the info that she was giving me.? I advised her to call the patient.? It was just a really weird call and even Luba thought to be careful with it.
== END ==
PROVIDERS: Internal Medicine Hematology & Oncology; Family Provider Physical Medicine & Rehabilitation; PCP Internal Medicine
DX: C61 Malignant neoplasm of prostate (principal)
CPT/HCPCS: 36415; 80053; 83615; 84153; 84403; 85025; 96401; 96402; 99214; J9217

== ENCOUNTER → 2018-12-02 14:09 | Outpatient (CLI) | payer OTHER, SELFPAY ==
[2018-12-02 14:44] LABS: Add Manual Diff / Slide Review NO; Basophils Absolute Auto 100 /uL (0-100); Eosinophils Absolute Auto 200 /uL (0-450); Eosinophils Percent Auto 2.2 % (2-4); Hematocrit 43.4 % (41-53); Hemoglobin 13.7 g/dL (13.5-17.5); Lymphocytes Absolute Auto 1500 /uL (1100-4500); Mean Corpuscular HGB Conc 31.5 % (30-36); Mean Corpuscular Hemoglobin 27.5 PG (26-34); Mean Corpuscular Volume 87.2 fL (80-100); Monocytes Absolute Auto 200 /uL (0-900); Monocytes Percent Auto 2.8 % (3-14); Neutrophils Absolute Auto 4900 /uL (1500-7000); Platelet Count 215 X10^3/uL (150-400); Red Blood Cell Count 4.98 X10^6/uL (4.5-5.9); Red Cell Distribution Width 13.4 % (11.6-14.8); White Blood Cell Count 6.8 X10^3/uL (4.5-11.0)
[2018-12-02 14:46] LABS: Alanine Aminotransferase 121 IU/L (21-72); Albumin 4.5 g/dL (3.5-5.0); Albumin Globulin Ratio 1.6 (1.0-2.8); Alkaline Phosphatase 112 U/L (38-126); Aspartate Aminotransferase 105 IU/L (17-59); Bilirubin Total 0.4 mg/dL (0.2-1.3); Blood Urea Nitrogen 18 mg/dL (9-20); Calcium 10.9 mg/dL (8.4-10.2); Carbon Dioxide 28 mmol/L (22-32); Chloride 100 mmol/L (98-107); Estimated Glomerular Filt Rate > 60.0 mL/min (>60); Globulin 2.9 g/dL (1.7-4.1); Glucose 143 mg/dL (80-110); HEMOLYSIS < 15 (0-50); Potassium 4.2 mmol/L (3.4-5.1); Sodium 141 mmol/L (137-145); Total Protein 7.4 g/dL (6.3-8.2)
[2018-12-02 15:22] LABS: Prostate Specific Antigen < 0.064 ng/mL (0.10-4.00)
== END ==
PROVIDERS: PCP Internal Medicine
DX: C61 Malignant neoplasm of prostate (principal)
CPT/HCPCS: 36415; 80053; 84153; 85025

== ENCOUNTER 2018-12-11 07:20 | Inpatient (IN) | payer OTHER, SELFPAY ==
[2018-12-03 09:39] VITALS: BMI 32.5
[2018-12-11] VITALS (22 sets, daily range): BP systolic 93–165; BP diastolic 46–95; PULSE 78–92; RESP 10–20; TEMP 35.9–36.9; O2SAT 92–99; BMI 31.0
--- NOTE | 2018-12-11 | DI.RAD.S_ITS ---
PROCEDURE: XR LUMBAR SPINE 2-3V INDICATIONS: L5-S1 TLIF TECHNIQUE: 2 views of the lumbar spine were acquired. COMPARISON: None. FINDINGS: Bones: 5 [id number] vertebrae are present from current and prior imaging. There is normal bony alignment established after L5-S1 posterior fusion by transverse pedicle screws and vertical fixation rods and a cage this prosthesis present at the L5-S1 disc space centrally.. No vertebral body compression fractures. No suspicious bony lesions. Soft tissues: Overlying bowel gas pattern is normal. No suspicious soft tissue calcifications. IMPRESSION: Excellent anatomic alignment established after posterior fusion and interbody disc prosthesis placement L5-S1. Dictated by: Kris Kebede M.D. on 12/11/2018 at 11:43 Approved by: Kris Kebede M.D. on 12/11/2018 at 11:44
[2018-12-11] MEDS: LACTATED RINGERS 1,000 ML 42 ML IV ×2 (08:11→10:05)
--- NOTE | 2018-12-11 08:42 | PM.PREOP ---
Pre-operative Note Interval Note History & Physical reviewed/Exam performed by Physician: Yes Changes to H&P: No
[2018-12-11] MEDS: CLINDAMYCIN 600 MG/50 ML PIGGYBACK 50 MG IV (08:50)
[2018-12-11] MEDS: ACETAMINOPHEN IV 1,000 MG/100 ML VIAL 400 MG IV (09:20)
--- NOTE | 2018-12-11 09:24 | SUR.OPER ---
Prone on spine table, head in foam head support, padded chest and pelvic supports, gel pad at knees, lower legs supported by pillows; nipples, genitalia and toes free of pressure, arms secured on foam padded arm boards at <90 degrees abduction. Tape over blanket at thigh secured to table.
[2018-12-11] MEDS: BUPIVACAINE LIPOSOME 266 MG/20 ML VIAL INJ (09:32)
[2018-12-11] MEDS: BUPIVACAINE 0.25% W/ EPI 30 ML VIAL INJ (09:32)
--- NOTE | 2018-12-11 11:29 | PM.OP.1 ---
Operative Date/Time/Diagnoses Date of procedure: 12/11/18 Time of procedure: 11:30 Pre-op diagnosis: 1. L5-S1 spinal stenosis 2. L5-S1 spondylosis with radiculopathy Post-op diagnosis: same Procedure & Clinicians Procedure: 1. L5-S1 Postero-lateral and posterior interbody fusion 2. L5-S1 interbody cage placement. 3. L5-S1 decompressive laminectomy with bilateral facetecomies 4. L5-S1 Posterior non-segmental instrumentation 5. [place] of bone marrow from iliac crest 6. Utilization of microsurgical technique and operating microscope Same procedure as scheduled: Yes Indications: Patient has been having chronic back pain and worsening lumbar radiculopathy. Patient failed multiple conservative management with worsening pain weakness and numbness in her lower extremity. Patient has been having difficulty performing activity of daily living. After discussing risks benefits of treatment options, patient elected proceed with surgery. Surgeon: Dewey Brunson Media Planner: Lila Herman Click Yes if Unassisted: No Anesthesia Type: General Operative Notes Closure Type: primary Specimen(s): none sent Prosthetic devices, grafts, tissues, transplants, or devices: Globus revolve screws, Rise cage Estimated Blood Loss (mL): 50 Blood products transfused: none Procedure in detail: Patient was seen in the preoperative area. Risks and benefits of the surgery was discussed with the patient. Informed consent was obtained from the patient and placed in the chart. Surgical site was marked. Patient was taken to the operative room. General anesthesia was administered. Prophylactic antibiotic was given to the patient less than 30 min before the incision was made. Patient was placed into a prone position on the Thor table. Patient's back was then prepped and draped in the sterile fashion. Time-out was performed at this time. Using AP and lateral C-arm imaging the interval between L5-S1 was identified and marked on patient's back. A 2 inch incision 2 in from midline was made on the left side first. The fascia was incised in line with skin incision. Globus MARS retractors was placed inside the incision and docked onto the L5 lamina. Using microsurgical technique and operating microscope, a L5 laminectomy and L5-S1 facetectomy was performed using a Kerrison rongeur. The disc space at L5-S1 was identified. And a total diskectomy was performed at L5-S1 level. The endplates were decorticated using a rasp and shaver. The total diskectomy and decortication was performed at L5-S1 level in order to to accomplish a L5-S1 fusion. The local bone from the laminectomy and facetectomy was saved for local bone grafting. After the total diskectomy and decortication was completed, Bio4 bone graft material was combined with local bone that was harvested earlier. At this time, a separate skin is incision was made over the iliac crest. A Jamshidi needle was inserted into the iliac crest through a separate skin incision. 5 cc of bone marrow aspiration was obtained through the separate skin incision using a Jamshidi needle from the iliac crest. The bone marrow aspiration was combined with local bone and the Bio4 bone grafting material. The bone grafting material was placed into the L5-S1 interbody space along with a expandable cage. The cage was expanded to its maximum height using the torque limiting screwdriver. At this time a mirror image incision was made on the right side. The fascia was incised in line with the skin incision. Globus MARS retractor was inserted and docked onto the L5-S1 posterolateral gutter. Using the power drill, posterior-lateral decortication was performed at L5-S1 level until bleeding cortical bone was identified. The remaining bone grafting material was placed into the L5-S1 posterior lateral gutter he order to accomplish posterolateral fusion at the L5-S1 level. Using the double C-arm technique, pedicle screws were placed into the L5-S1 pedicles bilaterally. This was done by placing the Jamshidi needle into the pedicles, then placing the guidewires over the Jamshidi needle, and finally placing the cannulated screws over the guidewires bilaterally. After the pedicle screws were placed, 2 titanium rods was locked into the heads of the pedicle screws using locking caps and torque limiting screwdriver. After all the hardware was placed, and confirmed with AP and lateral C-arm imaging, the wound was then irrigated with sterile normal saline and packed with Ray-Shilo gauze for 3 min to accomplish hemostasis. After the gauze was removed the deep fascia was closed with #1 Vicryl suture. The subcutaneous layer was closed with 2-0 Vicryl. The skin was closed with skin rubina. Patient tolerated the procedure well. There were no complications. Complications: none Condition: stable Disposition: PACU Plan for aftercare: Admit to inpatient hospital
--- NOTE | 2018-12-11 11:32 | P.OP_ITS ---
Operative Date/Time/Diagnoses Date of procedure: 12/11/18 Time of procedure: 11:30 Pre-op diagnosis: 1. L5-S1 spinal stenosis 2. L5-S1 spondylosis with radiculopathy Post-op diagnosis: same Procedure & Clinicians Procedure: 1. L5-S1 Postero-lateral and posterior interbody fusion 2. L5-S1 interbody cage placement. 3. L5-S1 decompressive laminectomy with bilateral facetecomies 4. L5-S1 Posterior non-segmental instrumentation 5. [place] of bone marrow from iliac crest 6. Utilization of microsurgical technique and operating microscope Same procedure as scheduled: Yes Indications: Patient has been having chronic back pain and worsening lumbar radiculopathy. Patient failed multiple conservative management with worsening pain weakness and numbness in her lower extremity. Patient has been having difficulty performing activity of daily living. After discussing risks benefits of treatment options, patient elected proceed with surgery. Surgeon: Dewey Brunson Hydraulic Dredge Operator: Lila Herman Click Yes if Unassisted: No Anesthesia Type: General Operative Notes Closure Type: primary Specimen(s): none sent Prosthetic devices, grafts, tissues, transplants, or devices: Globus revolve screws, Rise cage Estimated Blood Loss (mL): 50 Blood products transfused: none Procedure in detail: Patient was seen in the preoperative area. Risks and benefits of the surgery was discussed with the patient. Informed consent was obtained from the patient and placed in the chart. Surgical site was marked. Patient was taken to the operative room. General anesthesia was administered. Prophylactic antibiotic was given to the patient less than 30 min before the incision was made. Patient was placed into a prone position on the Thor table. Patient's back was then prepped and draped in the sterile fashion. Time- out was performed at this time. Using AP and lateral C-arm imaging the interval between L5-S1 was identified and marked on patient's back. A 2 inch incision 2 in from midline was made on the left side first. The fascia was incised in line with skin incision. Globus MARS retractors was placed inside the incision and docked onto the L5 lamina. Using microsurgical technique and operating microscope, a L5 laminectomy and L5-S1 fa cetectomy was performed using a Kerrison rongeur. The disc space at L5-S1 was identified. And a total diskectomy was performed at L5-S1 level. The endplates were decorticated using a rasp and shaver. The total diskectomy and decortication was performed at L5-S1 level in order to to accomplish a L5-S1 fusion. The local bone from the laminectomy and facetectomy was saved for local bone grafting. After the total diskectomy and decortication was completed, Bio4 bone graft material was combined with local bone that was harvested earlier. At this time, a separate skin is incision was made over the iliac crest. A Jamshidi needle was inserted into the iliac crest through a separate skin incision. 5 cc of bone marrow aspiration was obtained through the separate skin incision using a Jamshidi needle from the iliac crest. The bone marrow aspiration was combined with local bone and the Bio4 bone grafting material. The bone grafting material was placed into the L5-S1 interbody space along with a expandable cage. The cage was expanded to its maximum height using the torque limiting screwdriver. At this time a mirror image incision was made on the right side. The fascia was incised in line with the skin incision. Globus MARS retractor was inserted and docked onto the L5-S1 posterolateral gutter. Using the power drill, posterior- lateral decortication was performed at L5-S1 level until bleeding cortical bone was identified. The remaining bone grafting material was placed into the L5-S1 posterior lateral gutter he order to accomplish posterolateral fusion at the L5- S1 level. Using the double C-arm technique, pedicle screws were placed into the L5-S1 pedicles bilaterally. This was done by placing the Jamshidi needle into the pedicles, then placing the guidewires over the Jamshidi needle, and finally placing the cannulated screws over the guidewires bilaterally. After the pedicle screws were placed, 2 titanium rods was locked into the heads of the pedicle screws using locking caps and torque limiting screwdriver. After all the hardware was placed, and confirmed with AP and lateral C-arm imaging, the wound was then irrigated with sterile normal saline and packed with Ray-Shilo gauze for 3 min to accomplish hemostasis. After the gauze was removed the deep fascia was closed with #1 Vicryl suture. The subcutaneous layer was closed with 2-0 Vicryl. The skin was closed with skin rubina. Patient tolerated the procedure well. There were no complications. Complications: none Condition: stable Disposition: PACU Plan for aftercare: Admit to inpatient hospital
[2018-12-11] MEDS: HYDROMORPHONE 2 MG INJ 0.5 MG IV ×4 (11:55→12:20)
[2018-12-11] MEDS: OXYCODONE IR 5 MG TABLET 10 MG PO ×4 (13:37→23:29)
[2018-12-11] MEDS: ACETAMINOPHEN 325 MG TABLET 650 MG PO (13:38)
[2018-12-11] MEDS: SODIUM CHLORIDE 0.9% 1,000 ML 100 ML IV (13:38)
[2018-12-11] MEDS: MULTIVITAMIN 1 TABLET 1 TAB PO (13:40)
--- NOTE | 2018-12-11 13:47 | PC.NURSE ---
1300 Pt arrived from PACU via bed, Pt awake, On O2 1l pnc, sats 94%. Pt does not use O2 at home. Pt able to wiggle BLE, applied foot scds. Denies pain at this time, request ice chips. Family at bedside. 1345 Pt med for c/o pain of a 7 at the surgical site, gave PO medication and crackers. Pt states has not voided since 0600 today.
--- NOTE | 2018-12-11 14:26 | PC.NURSE ---
1420 bladder scanned for 350, Propped the urinal, Pt denies any discomfort.
--- NOTE | 2018-12-11 14:55 | PT.IIE ---
Current Diagnoses Other spondylosis with radiculopathy, lumbosacral region (12/11/18) Spinal stenosis, lumbar region without neurogenic claudication (12/11/18) Surgery Performed Operation Date: 12/11/18 08:45 Actual Procedures p L5-S1 TLIF - Dewey Brunson MD Surgical History (Last Updated 12/03/18 @ 10:25 by Rachel Harris, RN) H/O left wrist surgery (Acute) History of vasectomy (Acute) Hx of arthroscopy of left knee (Acute) Hx of knee surgery (Acute) Hx of prostatectomy (Acute ~2008) S/P epidural steroid injection (Acute) Medical History (Last Updated 12/03/18 @ 10:25 by Rachel Harris RN) Back pain (Acute) Depression (Acute) Diabetes (Acute) Easy bruisability (Acute) Elevated liver enzymes (Acute) Former smoker (Acute) GERD (gastroesophageal reflux disease) (Acute) HLD (hyperlipidemia) (Acute) HTN (hypertension) (Acute) Hearing impaired (Acute) Insomnia (Acute) Metastatic malignant neoplasm to prostate (Acute) Neck pain (Acute) RLS (restless legs syndrome) (Acute) Sciatica (Acute) Seasonal allergies (Acute) Sleep apnea (Acute) Torn rotator cuff (Acute) Physical Therapy Inpatient Evaluation/Re-Eval M1 PT/OT-IP Prior Functional Status Start: 12/11/18 15:37 Freq: NEEDED Status: Active Protocol: Document 12/11/18 14:55 AB (Rec: 12/11/18 15:50 AB [id number]) Medical Review Prior Functional Status Medical History Reviewed Yes Communication able to make needs known Mobility and Gait pt stated that he is independent with all mobilities and ambulation without AD but uses SPC on/off outdoors depending on L hip pain Social History Household Members spouse children Living Arrangements House Number of Floors (Floors) Two Floors Number of Stairs To Enter/Railing? pt and spouse lives on the lower level and son/daughter- in-law on the upper level of the house; no steps to enter Home Environment High Toilet Walk in Shower Built-In Shower Seat Home Equipment Four Wheel Walker Straight Cane Hand Held Shower Additional Social History Comment pt has an adjustable bed M2 PT-IP Current Condition Start: 12/11/18 15:37 Freq: NEEDED Status: Active Protocol: Document 12/11/18 14:55 AB (Rec: 12/11/18 15:50 AB [id number]) Physical Therapy Current Condition Current Condition Evaluation Date 12/11/18 Treatment Diagnosis s/p L5S1 fusion/lami; difficulty in walking Onset Date 12/11/18 Precautions Lumbar Precautions Log Roll No Twisting Limit Bending Lifting Restriction of 10 lbs Gait Belt above Incisional Area M3 PT-IP Subjective Start: 12/11/18 15:37 Freq: NEEDED Status: Active Protocol: Document 12/11/18 14:55 AB (Rec: 12/11/18 15:50 AB [id number]) Subjective Physical Therapy Visit Type Type Initial Evaluation Visit Start Time 14:55 Visit Stop Time 15:36 Total Visit Minutes 41 Number of INDUSTRIAL ECONOMICS PROFESSOR Visits 0 Physical Therapy Visit Comments Patient Comments pt agreeable to do PT Therapy Pain Assessment Pain When Pain Assessed At Rest Pain Present Pain Present Pain Reported Location lowert back/lhip Intensity 7 Scale Used 8/10 with mobility Pain Management Techniques Apply Cold Re-positioning Timing of Activity with Medications M4 PT-IP Mobility and Gait Start: 12/11/18 15:37 Freq: NEEDED Status: Active Protocol: Document 12/11/18 14:55 AB (Rec: 12/11/18 15:50 AB [id number]) PT-Bed Mobility Assessment Rolling Type of Rolling Log Rolling Level of Assist Minimal Assistance Supine to Sit Supine to Sit Minimal Assistance Sit to Supine Sit to Supine Minimal Assistance Scooting Scooting to Edge of Bed Standby Assistance PT-Transfer Assessment Sit to and From Stand Sit to and from Stand Minimal Assistance 1 Person Assistance Use of Upper Extremities Equipment Transfer Assistive Device Gait Belt Front Wheeled Walker Orthotic/Prosthetic Devices or Brace: No Comments Mobility Comments pt completed supine to sit min A and cues for log roll technique. pt was able to sit on EOB SBA. no c/o dizziness /nausea. BP 160/86. c/o increase back pain. completed sit to stand min A and cues. pt agreed to do ambulation but requested to go back to bed afterwards. pt completed sit to supine min A and cues. positioned pt partial half side lying as requested and ice pack provided. call light and table placed within reach . left pt with family. Gait Assessment Gait Gait Assistance Required: Contact Guard Assist Minimum Assistance Distance (Feet) 35 Able to Maintain Weight Bearing Status Yes During Gait Assistive Devices Assistive Device Gait Belt Front Wheeled Walker Orthotic/Prosthetic Devices or Brace: No Gait Deviations General Gait Pattern Antalgic Decreased Stride Length Decreased Feet Clearance Step-to Gait Factors Limiting Gait Function Factors Limiting Gait Function Decreased Activity Tolerance Decreased Strength Limited Range of Motion Pain Poor Balance Poor Safety Awareness PT-Balance Assessment Sitting Balance and Reactions Static Sitting Balance Ability Good Dynamic Sitting Balance Ability Good Standing Balance and Reactions Static Standing Balance Ability Fair Dynamic Standing Balance Ability Fair Device Used FWW M5 PT-IP Objective Assessments Start: 12/11/18 15:37 Freq: NEEDED Status: Active Protocol: Document 12/11/18 14:55 AB (Rec: 12/11/18 15:50 AB [id number]) Orientation Orientation/Cognition Level of Alertness Alert Orientation Name Place Situation Language Function Ability No Deficits Noted Safety Awareness Understands Safety Issues Memory Description No Deficits Noted Gross Range of Motion Lower Extremity ROM Assessment Within Functional Limits Strength Lower Extremity Strength Assessment Bilaterally Impaired Hip 4-/5 Knee 4-/5 Coordination Assessment Gross Coordination Gross Coordination WNL Sensation Assessment Sensation Gross Sensation WNL Muscle Tone Muscle Tone WNL Yes M6 PT-IP Treatment Start: 12/11/18 15:37 Freq: NEEDED Status: Active Protocol: Document 12/11/18 14:55 AB (Rec: 12/11/18 15:50 AB [id number]) Physical Therapy Treatment Education Education Provided Precautions Weight Bearing Status Post-Op Packet Safety M7 PT-IP Assessment and Plan Start: 12/11/18 15:37 Freq: NEEDED Status: Active Protocol: Document 12/11/18 14:55 AB (Rec: 12/11/18 15:50 AB [id number]) PT Summary Assessment and Plan Potential Rehabilitation Potential Good Status of Condition at Evaluation Stable Summary Impairments Pain ROM Strength Balance Coordination Bed Mobility Transfers Gait Activity Tolerance Assessment Summary pt requiring min A with mobility but will likely improve during hospital stay. pt will have spouse at home to assist him and caregiver training will be conducted when appropriate. Goals Bed Mobility Goal Standby Assistance Transfer Goal Standby Assistance Front Wheeled Walker Four Wheeled Walker Gait Goal Standby Assistance Front Wheel Walker Four Wheel Walker Gait Distance 250 Days to Meet Goals 5 Frequency of Treatment Frequency Of Treatment Twice a Day Treatment Plan Physical Therapy Treatment Plan Bed Mobility Training Transfer Training Gait Training Therapeutic Exercise Balance Retraining Post Op Education Discharge Planning Hot or Cold Pack Neuromuscular Re-ed Coordination Retraining Manual Therapy Other Recommendations and Next Treatment ambulation, log roll bed Focus mobility, caregiver training when appropriate Recommendations To Nursing Amount of Assist Needed 1 Person Assist Discharge Recommendations PT Discharge Recommendations Home with Assistance Equipment Needed for Home Before FWW if not safe with a 4WW Discharge
[2018-12-11] MEDS: CLINDAMYCIN 900 MG/50 ML PIGGYBACK 50 MG IV ×2 (16:33→23:29)
[2018-12-11] MEDS: METFORMIN HCL 500 MG TABLET 1000 MG PO (16:33)
[2018-12-11] MEDS: INSULIN ASPART 100 UNIT/ML INSULN PEN SUBCUT (16:53)
[2018-12-11] MEDS: SIMVASTATIN 10 MG TABLET PO (20:47)
[2018-12-11] MEDS: glipiZIDE 5 MG TABLET PO (20:47)
[2018-12-11] MEDS: SENNOSIDES 8.6 MG TABLET 17.2 MG PO (20:47)
[2018-12-11] MEDS: DOCUSATE 100 MG CAPSULE PO (20:47)
[2018-12-11] MEDS: LISINOPRIL 20 MG TABLET PO (20:52)
[2018-12-11] MEDS: ROPINIROLE 1 MG TABLET 2 MG PO (20:53)
[2018-12-11] MEDS: hydrOXYzine pamoate 25 MG CAPSULE PO (23:29)
[2018-12-12] VITALS (7 sets, daily range): BP systolic 122–163; BP diastolic 58–96; PULSE 90–104; RESP 16–20; TEMP 36.9–37.6; O2SAT 92–94
[2018-12-12] MEDS: SODIUM CHLORIDE 0.9% 1,000 ML 100 ML IV (00:50)
[2018-12-12] MEDS: OXYCODONE IR 5 MG TABLET 10 MG PO ×7 (03:23→21:26)
[2018-12-12] MEDS: HYDROMORPHONE 1 MG INJ 0.5 MG IV (04:14)
[2018-12-12] MEDS: hydrOXYzine pamoate 25 MG CAPSULE PO ×3 (06:19→22:39)
[2018-12-12] MEDS: INSULIN ASPART 100 UNIT/ML INSULN PEN SUBCUT ×3 (08:08→17:06)
[2018-12-12] MEDS: glipiZIDE 5 MG TABLET PO ×2 (08:12→21:26)
[2018-12-12] MEDS: METFORMIN HCL 500 MG TABLET 1000 MG PO ×2 (08:12→15:28)
[2018-12-12] MEDS: CALCIUM CARBONATE 500 MG TAB PO (08:12)
[2018-12-12] MEDS: MULTIVITAMIN 1 TABLET 1 TAB PO (08:12)
[2018-12-12] MEDS: CYANOCOBALAMIN (VITAMIN B-12) 500 MCG TABLET 1000 MCG PO (08:12)
[2018-12-12] MEDS: DOCUSATE 100 MG CAPSULE PO ×2 (08:13→21:26)
[2018-12-12] MEDS: LISINOPRIL 20 MG TABLET PO ×2 (08:15→21:26)
[2018-12-12] MEDS: FLUoxetine 10 MG CAPSULE PO (08:23)
[2018-12-12] MEDS: hydroCHLOROthiazide 12.5 MG CAPSULE PO (08:23)
--- NOTE | 2018-12-12 08:57 | CM.DANOTE ---
DCP: Case received, EMR reviewed and met with patient. Introduced self and role. Brother, Darshan, also at patient's bedside. Was able to obtain baseline living situation from patient. DCP assessment completed with information currently available. Patient is a 68 year old male who admitted yesterday morning to the care of the orthopedist team. PCP: Dr. Santos. Payer: confirmed: [employer]. Patient came to the hospital for a surgical procedure. He had L5-S1, postero-lateral posterior interbody fusion. Patient has had history of chronic back pain, including weakness and numbness to the area. Met with him in his room. He was sitting up in his chair. Met his brother Darshan, who lives in [facility]. Patient has a spouse named Yoselyn. He is independent, has used a cane when needed prior to surgery. P:DCP to continue to follow. He worked with P.T. yesterday, and will do again today. Patient should be able to go home when medically stable, and if cleared by P.T. Maryan Vallecillo RN/Egg Smeller
--- NOTE | 2018-12-12 09:10 | PM.PNPO.1 ---
Subjective Date Patient Seen: 12/12/18 Time Patient Seen: 09:10 Interval history: Pain is been moderate to severe. Denies fever chills. No nausea vomiting. Patient was able walk a short distance yesterday with physical therapy. States both legs feel weak and unstable. His is home med available to assist him. Exam Vital Signs (past 8 hours): - 12/12/18 04:04 12/12/18 07:20 12/12/18 08:15 Temperature 98.5 F 99.1 F Pulse Rate 104 H 97 H Respiratory Rate 18 16 Blood Pressure 163/96 H 138/87 163/96 H Pulse Oximetry 94 92 Oxygen Delivery Method Room Air Oxygen Flow Rate 1 Narrative Exam Narrative: 68-year-old male resting comfortably in bedside chair in no apparent distress. Dressing shows scant drainage otherwise intact. Sensation grossly intact light touch bilateral lower extremities. Motor functions intact. Both extremities are warm and dry. Assessment & Plan Post-op Postoperative Procedures Operation Date: 12/11/18 08:45 Actual Procedures Side Surgeon p L5-S1 TLIF Dewey Brunson MD Patient progressing as expected. Mobilize with physical therapy. Continue to work on pain control and lower extremity strength. Likely discharge home tomorrow. Quality VTE Deep Vein Thrombosis/Pulmonary Embolism Present on Admission: No
--- NOTE | 2018-12-12 09:33 | OT.IP.EVAL ---
Current Diagnoses Other spondylosis with radiculopathy, lumbosacral region (12/11/18) Spinal stenosis, lumbar region without neurogenic claudication (12/11/18) Surgery Performed Operation Date: 12/11/18 08:45 Actual Procedures p L5-S1 TLIF - Dewey Burnson MD Past Medical History (Last Updated 12/03/18 @ 10:25 by Rachel Harris RN) Back pain (Acute) Depression (Acute) Diabetes (Acute) Easy bruisability (Acute) Elevated liver enzymes (Acute) Former smoker (Acute) GERD (gastroesophageal reflux disease) (Acute) HLD (hyperlipidemia) (Acute) HTN (hypertension) (Acute) Hearing impaired (Acute) Insomnia (Acute) Metastatic malignant neoplasm to prostate (Acute) Neck pain (Acute) RLS (restless legs syndrome) (Acute) Sciatica (Acute) Seasonal allergies (Acute) Sleep apnea (Acute) Torn rotator cuff (Acute) Surgical History (Last Updated 12/03/18 @ 10:25 by Rachel Harris RN) H/O left wrist surgery (Acute) History of vasectomy (Acute) Hx of arthroscopy of left knee (Acute) Hx of knee surgery (Acute) Hx of prostatectomy (Acute ~2008) S/P epidural steroid injection (Acute) Occupational Therapy Inpatient Evaluation/Re-Eval M1 PT/OT-IP Prior Functional Status Start: 12/11/18 15:37 Freq: NEEDED Status: Active Protocol: Document 12/12/18 09:33 PJM (Rec: 12/12/18 10:21 PJM [id number]) Medical Review Prior Functional Status Medical History Reviewed Yes Diet/Fluid Consistency Regular Communication WNL Mobility and Gait Pt stated that he is independent with ambulation without AD, but sometimes uses SPC outdoors depending on L hip pain. Activities of Daily Living and IADL's Pt states he was independent with all self care and shares IADLS with his . Both drive. Prior Functional Level (Other details) Both pt and are retired. Social History Household Members spouse children Living Arrangements House Number of Floors (Floors) Two Floors Number of Stairs To Enter/Railing? pt goes down incline to enter lower level of home where he and live, his son and daughter in law live upstairs Home Environment High Toilet Walk in Shower Built-In Shower Seat Home Equipment Four Wheel Walker Straight Cane Employment Status Retired M2 OT-IP Current Condition Start: 12/12/18 08:36 Freq: Status: Active Protocol: Document 12/12/18 09:33 PJM (Rec: 12/12/18 10:21 PJM [email or web address]) Occupational Therapy Current Condition Current Condition Evaluation Date 12/12/18 Treatment Diagnosis decreased self are, mobility s /p L5-S1 TLIF Post Operative Precautions Lumbar Precautions Log Roll No Twisting Limit Bending Lifting Restriction of 10 lbs Gait Belt above Incisional Area M3 OT- IP Subjective and Pain Start: 12/12/18 08:36 Freq: Status: Active Protocol: Document 12/12/18 09:33 PJM (Rec: 12/12/18 10:21 PJM [id number]) OT- Subjective Occupational Therapy Visit Type Type Initial Evaluation Visit Start Time 09:04 Visit Stop Time 09:33 Total Visit Minutes 29 Notes Pt very drowsy this session; falling asleep in mid task. RN aware. Occupational Therapy Visit Comments Patient Comments I didn't get any sleep last night. Patient/Caregiver Goals to go home tomorrow OT Pain Assessment Pain When Pain Assessed After Treatment Pain Present Pain Present Pain Reported Location lowert back/lhip Intensity 5 Scale Used Numeric (1 - 10) Description Aching Acute Pain Behaviors Facial Grimacing Guarding Management Techniques Apply Cold Re-positioning Timing of Activity with Medications M4 OT- IP ADL's Start: 12/12/18 08:36 Freq: Status: Active Protocol: Document 12/12/18 09:33 PJM (Rec: 12/12/18 10:21 PJM [id number]) OT [id number] General Evaluation Self-Feeding Ability Independent OT ADL-Grooming Comments OT Grooming Comments pt declined this session OT ADL-Oral Care Comments Oral Care Comments pt declined this session OT ADL-Dressing General Eval Lower Body Dressing Ability Moderate Assistance Areas Needing Assistance Underpants/Brief Socks Assistive Devices Dressing Assistive Devices Long Handled Shoe Horn Bisque Placer Sock Aid Comments OT Dressing Comments Began education re: lower body dressing with adaptive equipt with emphasis on spine precautions. Pt needing max verbal cues and mod assist for unfamiliar technique. Drowsiness interfering with pt performance. OT ADL-Toileting Comments OT Toileting Comments pt declined this session OT ADL-Bathing Devices Bathing Equipment Long Handled Sponge or Assurance Officer Held Shower Sprayer Comments OT Bathing Comments to be assessed, pt has built in seat in shower stall and already has long bath sponge M5 OT- IP IADL's Start: 12/12/18 08:36 Freq: Status: Active Protocol: Document 12/12/18 09:33 PJM (Rec: 12/12/18 10:21 PJ [id number]) OT-Instrumental Activities of Daily Living Deficits IADL Deficits Identified Deficits Home Safety Awareness Awareness of Need for Assistance at Home Good Awareness Medication Management Medication Management No Deficits Identified Money Management Money Management No Deficits Identified Meal Preparation Meal Preparation Caregiver Provides Assist Meal Preparation Comments can assist until pt able Coach Mechanic Coach Mechanic Caregiver Provides Assist Coach Mechanic Comments /family can assist until pt able Driving Driving Caregiver Provides Assist Driving Comments /family can assist until pt able M6 OT- IP Functional Cognition Start: 12/12/18 08:36 Freq: Status: Active Protocol: Document 12/12/18 09:33 PJM (Rec: 12/12/18 10:21 PJ [email or web address]) Cognitive Factors Limiting Selfcare Function Cognitive Ability Level of Alertness Drowsy Patient Orientation Name Age Birthday Month Date Year Day of Week Place Situation Attention Span Ability Capable of Focused Attention Unable to Sustain Attention Ability to Follow Commands Able to Follow One Step Commands Problem Solving Ability Needs Assist to Identify Solutions Cognitive Comments Cognitive Assessment Comments Pt quite drowsy this session. RN aware. Pt will require repetition of information. OT- Vision and Hearing OT- Hearing Assessment OT- Hearing Assessment WFL OT- Vision Assessment Visual Acuity WFL Glasses For Reading M7 OT- IP Mobility and Balance Start: 12/12/18 08:36 Freq: Status: Active Protocol: Document 12/12/18 09:33 PJM (Rec: 12/12/18 10:21 PJ [email or web address]) OT-Transfer Assessment Sit to and From Stand Sit to and from Stand Contact Guard Assistance Comments Mobility Comments Pt moves slowly and carefully. OT- Gait Assessment Assistive Devices Assistive Device Front Wheeled Walker OT- Balance Assessment Sitting Balance and Reactions Static Sitting Balance Ability Good Standing Balance and Reactions Static Standing Balance Ability Good M8 OT- IP Objective Assessments Start: 12/12/18 08:36 Freq: Status: Active Protocol: Document 12/12/18 09:33 PJM (Rec: 12/12/18 10:21 PJ [email or web address]) OT Gross Range of Motion Upper Extremity Range of Motion Assessment Within Functional Limits ROM Impairments hx of R rotator cuff tear, no surgery OT Strength Upper Extremity Strength Assessment Within Functional Limits Hand Insurance Claim Auditor Strength Hand Dominance Right OT- Coordination Assessment Comments Coordination Comments BUE WFL OT Sensation Assessment Comments Summary Comments BUE WNL per pt Edema Edema Absent M9 OT- IP Assessment and Plan Start: 12/12/18 08:36 Freq: Status: Active Protocol: Document 12/12/18 09:33 PJM (Rec: 12/12/18 10:21 PJM [email or web address]) OT Summary Assessment and Plan Potential Rehabilitation Potential Good Analytic Complexity at Evaluation Low Summary OT Impairments Pain Balance Functional Mobility Grooming Dressing Toileting Bathing Toilet Transfers Shower Transfers Assessment Summary Low complexity OT assessment completed with emphasis on lumbar spine precautions on this 68 male s/p L5-S1 TLIF. Began education re: precautions, chair selection, sitting posture and lower body dressing with adaptive equipment. Pt currently has performance deficits in functional mobility/transfers, standing grooming, lower body dressing, bathing and toileting. Pt very drowsy today and will require additional education/ practice. not here this session. Plan 1 additional OT visit here to address the goals below and provide family education. Pt plans to d/c home when medically stable and clears P.T. Goals Grooming Goal Independent Dressing Goal Independent Long Handled Shoe Horn Bisque Placer Sock Aid Toileting Goal Independent Bathing Goal Standby Assistance Hand Held Shower Sprayer Toilet Transfer Goal Independent Shower Transfer Goal Standby Assistance Walk-in Shower Patient/Caregiver Education Goal Demonstrate Post-Op Precautions Demonstrate Energy Conservation and Pacing Caregiver Independent Assisting Patient OT-Other Goals Grooming to be done standing at sink with good body mechanics. Days to Meet Goals 1 Frequency of Treatment Frequency Of Treatment Once a Day Treatment Plan OT Treatment Plan ADL Training Functional Mobility Patient/Family Education Discharge Planning Discharge Recommendations OT Discharge Recommendations Home with Assistance Home Equipment Needs provided coating machine helper, sock aid, long shoe horn
--- NOTE | 2018-12-12 10:19 | PT.IPTN ---
Current Diagnoses Other spondylosis with radiculopathy, lumbosacral region (12/11/18) Spinal stenosis, lumbar region without neurogenic claudication (12/11/18) Surgery Performed Operation Date: 12/11/18 08:45 Actual Procedures p L5-S1 TLIF - Dewey Brunson MD Physical Therapy Treatment Note M2 PT-IP Current Condition Start: 12/11/18 15:37 Freq: NEEDED Status: Active Protocol: Document 12/11/18 14:55 AB (Rec: 12/11/18 15:50 AB [id number]) Physical Therapy Current Condition Current Condition Evaluation Date 12/11/18 Treatment Diagnosis s/p L5S1 fusion/lami; difficulty in walking Onset Date 12/11/18 Precautions Lumbar Precautions Log Roll No Twisting Limit Bending Lifting Restriction of 10 lbs Gait Belt above Incisional Area M3 PT-IP Subjective Start: 12/11/18 15:37 Freq: NEEDED Status: Active Protocol: Document 12/12/18 10:16 GGD (Rec: 12/12/18 11:27 GGD [id number]) Subjective Physical Therapy Visit Type Type Treatment Note Visit Start Time 10:03 Visit Stop Time 10:19 Total Visit Minutes 16 Number of BIOFUELS ENGINEERING MANAGER Visits 1 Physical Therapy Visit Comments Patient Comments Pt states he would like to return to bed. Therapy Pain Assessment Pain When Pain Assessed At Rest Pain Present Pain Present Pain Reported Location lowert back/lhip Intensity 5 Scale Used Numeric (1 - 10) M4 PT-IP Mobility and Gait Start: 12/11/18 15:37 Freq: NEEDED Status: Active Protocol: Document 12/12/18 10:16 GGD (Rec: 12/12/18 11:27 GGD [id number]) PT-Bed Mobility Assessment Rolling Type of Rolling Log Rolling Level of Assist Standby Assistance Sit to Supine Sit to Supine Minimal Assistance 1 Person Assistance Bedrails Scooting Scooting to Edge of Bed Standby Assistance PT-Transfer Assessment Sit to and From Stand Sit to and from Stand Contact Guard Assistance 1 Person Assistance Use of Upper Extremities Equipment Transfer Assistive Device Gait Belt Front Wheeled Walker Orthotic/Prosthetic Devices or Brace: No Transfers Transfer Destination Bed Toilet Transfer Ability Level of Assist Contact Guard Assistance Gait Assessment Gait Gait Assistance Required: Contact Guard Assist Distance (Feet) 90 Able to Maintain Weight Bearing Status Yes During Gait Assistive Devices Assistive Device Gait Belt Front Wheeled Walker Orthotic/Prosthetic Devices or Brace: No Gait Deviations General Gait Pattern Antalgic Decreased Stride Length Decreased Feet Clearance Step-to Gait Factors Limiting Gait Function Factors Limiting Gait Function Decreased Activity Tolerance Decreased Strength Limited Range of Motion Pain Poor Balance Poor Safety Awareness M5 PT-IP Objective Assessments Start: 12/11/18 15:37 Freq: NEEDED Status: Active Protocol: Document 12/11/18 14:55 AB (Rec: 12/11/18 15:50 AB [id number]) Orientation Orientation/Cognition Level of Alertness Alert Orientation Name Place Situation Language Function Ability No Deficits Noted Safety Awareness Understands Safety Issues Memory Description No Deficits Noted Gross Range of Motion Lower Extremity ROM Assessment Within Functional Limits Strength Lower Extremity Strength Assessment Bilaterally Impaired Hip 4-/5 Knee 4-/5 Coordination Assessment Gross Coordination Gross Coordination WNL Sensation Assessment Sensation Gross Sensation WNL Muscle Tone Muscle Tone WNL Yes M6 PT-IP Treatment Start: 12/11/18 15:37 Freq: NEEDED Status: Active Protocol: Document 12/12/18 10:16 GGD (Rec: 12/12/18 11:27 GGD [id number]) Physical Therapy Treatment Education Education Provided Precautions Safety M7 PT-IP Assessment and Plan Start: 12/11/18 15:37 Freq: NEEDED Status: Active Protocol: Document 12/12/18 10:16 GGD (Rec: 12/12/18 11:27 GGD [id number]) PT Summary Assessment and Plan Summary Assessment Summary Pt improving slowly with mobility. He need min A with LE for sit to supine. He is very slow moving. He had heavy use for UE on FWW with gait. Frequency of Treatment Frequency Of Treatment Twice a Day Treatment Plan Physical Therapy Treatment Plan Bed Mobility Training Transfer Training Gait Training Therapeutic Exercise Balance Retraining Post Op Education Discharge Planning Hot or Cold Pack Neuromuscular Re-ed Coordination Retraining Manual Therapy Other Recommendations and Next Treatment ambulation with FWW vs 4WW, Focus log roll bed mobility, caregiver training when appropriate Recommendations To Nursing Amount of Assist Needed 1 Person Assist Discharge Recommendations PT Discharge Recommendations Home with Assistance
--- NOTE | 2018-12-12 13:25 | PT.IPTN ---
Current Diagnoses Other spondylosis with radiculopathy, lumbosacral region (12/11/18) Spinal stenosis, lumbar region without neurogenic claudication (12/11/18) Surgery Performed Operation Date: 12/11/18 08:45 Actual Procedures p L5-S1 TLIF - Dewey Brunson MD Physical Therapy Treatment Note M2 PT-IP Current Condition Start: 12/11/18 15:37 Freq: NEEDED Status: Active Protocol: Document 12/11/18 14:55 AB (Rec: 12/11/18 15:50 AB [id number]) Physical Therapy Current Condition Current Condition Evaluation Date 12/11/18 Treatment Diagnosis s/p L5S1 fusion/lami; difficulty in walking Onset Date 12/11/18 Precautions Lumbar Precautions Log Roll No Twisting Limit Bending Lifting Restriction of 10 lbs Gait Belt above Incisional Area M3 PT-IP Subjective Start: 12/11/18 15:37 Freq: NEEDED Status: Active Protocol: Document 12/12/18 13:25 GGD (Rec: 12/12/18 13:48 GGD [id number]) Subjective Physical Therapy Visit Type Type Treatment Note Visit Start Time 13:02 Visit Stop Time 13:25 Total Visit Minutes 23 Number of CHRONIC SPECIALIST Visits 2 Physical Therapy Visit Comments Patient Comments Pt states he has his 4WW here. Therapy Pain Assessment Pain When Pain Assessed At Rest Pain Present Pain Present Pain Reported Location lowert back/lhip Scale Used 5-6 M4 PT-IP Mobility and Gait Start: 12/11/18 15:37 Freq: NEEDED Status: Active Protocol: Document 12/12/18 13:25 GGD (Rec: 12/12/18 13:48 GGD [id number]) PT-Transfer Assessment Sit to and From Stand Sit to and from Stand Contact Guard Assistance 1 Person Assistance Use of Upper Extremities Equipment Transfer Assistive Device Gait Belt 4 Wheeled Walker Orthotic/Prosthetic Devices or Brace: No Transfers Transfer Destination Bed Transfer Ability Level of Assist Contact Guard Assistance Gait Assessment Gait Gait Assistance Required: Contact Guard Assist Distance (Feet) 130 Able to Maintain Weight Bearing Status Yes During Gait Assistive Devices Assistive Device Gait Belt 4 Wheeled Walker Orthotic/Prosthetic Devices or Brace: No Gait Deviations General Gait Pattern Antalgic Decreased Stride Length Decreased Feet Clearance Step-to Gait Factors Limiting Gait Function Factors Limiting Gait Function Decreased Activity Tolerance Decreased Strength Limited Range of Motion Pain Poor Balance Poor Safety Awareness M5 PT-IP Objective Assessments Start: 12/11/18 15:37 Freq: NEEDED Status: Active Protocol: Document 12/11/18 14:55 AB (Rec: 12/11/18 15:50 AB [id number]) Orientation Orientation/Cognition Level of Alertness Alert Orientation Name Place Situation Language Function Ability No Deficits Noted Safety Awareness Understands Safety Issues Memory Description No Deficits Noted Gross Range of Motion Lower Extremity ROM Assessment Within Functional Limits Strength Lower Extremity Strength Assessment Bilaterally Impaired Hip 4-/5 Knee 4-/5 Coordination Assessment Gross Coordination Gross Coordination WNL Sensation Assessment Sensation Gross Sensation WNL Muscle Tone Muscle Tone WNL Yes M6 PT-IP Treatment Start: 12/11/18 15:37 Freq: NEEDED Status: Active Protocol: Document 12/12/18 13:25 GGD (Rec: 12/12/18 13:48 GGD [id number]) Physical Therapy Treatment Education Education Provided Precautions M7 PT-IP Assessment and Plan Start: 12/11/18 15:37 Freq: NEEDED Status: Active Protocol: Document 12/12/18 13:25 GGD (Rec: 12/12/18 13:48 GGD [id number]) PT Summary Assessment and Plan Summary Assessment Summary Pt progressing with gait. He was safe and stable with 4WW. He was able to progress gait pace and step length. He is slow with mobility. Frequency of Treatment Frequency Of Treatment Twice a Day Treatment Plan Physical Therapy Treatment Plan Bed Mobility Training Transfer Training Gait Training Therapeutic Exercise Balance Retraining Post Op Education Discharge Planning Hot or Cold Pack Neuromuscular Re-ed Coordination Retraining Manual Therapy Other Recommendations and Next Treatment log roll bed mobility, Focus caregiver training Recommendations To Nursing Amount of Assist Needed 1 Person Assist Discharge Recommendations PT Discharge Recommendations Home with Assistance
[2018-12-12] MEDS: ACETAMINOPHEN 325 MG TABLET 650 MG PO (21:26)
[2018-12-12] MEDS: SIMVASTATIN 10 MG TABLET PO (21:26)
[2018-12-12] MEDS: SENNOSIDES 8.6 MG TABLET 17.2 MG PO (21:26)
[2018-12-12] MEDS: ROPINIROLE 1 MG TABLET 2 MG PO (21:27)
[2018-12-13 00:10] VITALS: BP 127/67; PULSE 96; RESP 18; TEMP 37.1; O2SAT 93
[2018-12-13] MEDS: OXYCODONE IR 5 MG TABLET 10 MG PO ×3 (00:39→11:49)
--- NOTE | 2018-12-13 00:56 | PC.NURSE ---
Addendum entered by Danielle Morales R.N. 12/13/18 06:49: Slept most of night. Sleeping this morning and has had no further complaints of pain. Original Note: Patient is alert and oriented. Breath sounds CTA with RA sat of 93%. HRR. Denies nausea. BT hypoactive but states he is passing flatus. Abdomen large but patient states is normal. Denies dysuria, frequency or urgency. Able to turn himself in bed and gets out of bed with walker and 1 assist; does report feeling weak and unsteady. Dressing to back with shadow drainage and coming off so replaced with coversite. Graft site dressing with old sanguinous drainage noted. States pain is currently 5/10 so medicated with Oxycodone and ice pack applied. CMS is intact. Refuses to wear SCD's as can't sleep with them on. Fall risk score is high and bed alarm is activated.
[2018-12-13 04:17] VITALS: BP 115/70; PULSE 91; RESP 18; TEMP 36.9; O2SAT 96
[2018-12-13 08:00] VITALS: BP 132/70; PULSE 89; RESP 18; TEMP 36.6; O2SAT 92
--- NOTE | 2018-12-13 08:08 | PM.DS.1 ---
History of Present Illness Date Patient Seen: 12/13/18 Time Patient Seen: 08:08 Chief complaint: [id number] Narrative: Patient has been having chronic back pain and worsening lumbar radiculopathy. Patient failed multiple conservative management with worsening pain weakness and numbness in her lower extremity. Patient has been having difficulty performing activity of daily living. After discussing risks benefits of treatment options, patient elected proceed with surgery. Discharge Providers Date of admission: 12/11/18 07:20 Discharge Date: 12/13/18 Primary care physician: Mark Santos MD Consults: 12/11/18 08:10 Consult to Respiratory Therapy Evaluate & Treat Comment: Physician Instructions: Evaluate and treat 12/11/18 13:18 Consult to Occupational Therapy Evaluate & Treat Comment: Physician Instructions: Evaluate and treat Consult to Physical Therapy Evaluate & Treat Comment: Physician Instructions: Evaluate and Treat Discharge provider: Eunice Valencia PA-C Summary Discharge Diagnosis: s/p TLIF Diabetes Hypertension GERD Hyperlipidemia Hospital Course: Monica was admitted for L5-S1 TLIF with Dr. Brunson. Hospital course was unremarkable. On postop day 2 patient was ready to discharge home. He is eating and voiding without difficulty or assistance. He was mobilizing with physical therapy safely. Cover site dressing changed prior to discharge. Status at Discharge Functional status at discharge: uses cane/walker Exam Vital Signs (past 8 hours): - 12/13/18 00:10 12/13/18 04:17 Temperature 98.8 F 98.4 F Pulse Rate 96 H 91 H Respiratory Rate 18 18 Blood Pressure 127/67 115/70 Pulse Oximetry 93 96 Oxygen Delivery Method Room Air Oxygen Flow Rate 0 Narrative Exam Narrative: Patient is sitting at bedside chair in no acute distress. He is alert and oriented x3. Calves are soft, compressible, nontender bilaterally. Dressing CDI. Changed to cover site dressing prior to discharge. Sensation intact light touch in her bilateral lower extremities. Pulses are symmetrical. Pain well controlled this morning. Discharge Plan Discharge Plan Patient Disposition: Home Discharge Med Rec/Prescriptions Prescriptions: New docusate sodium [DOK] 100 mg Capsule 100 mg PO BID Qty: 60 RF: 0 oxycodone-acetaminophen [Percocet] 5-325 mg tablet 1 tab PO Q4-6H PRN (Reason: pain) Qty: 50 RF: 0 hydroxyzine HCl 25 mg tablet 25 mg PO QID PRN (Reason: muscle spasms) Qty: 40 RF: 1 Continued fluoxetine 10 MG tablet 10 mg PO Q DAY Qty: 0 RF: 0 metformin [Glucophage] 1,000 MG tablet 1,000 mg PO BIDCC Qty: 0 RF: 0 omeprazole 20 MG capsule,delayed release(DR/EC) 20 mg PO Q OTHER DAY Qty: 0 RF: 0 ropinirole 2 MG tablet extended release 24 hr 2 mg PO HS Qty: 0 RF: 0 multivitamin [Multiple Vitamins] 1 EACH tablet 1 tab PO QDAY Qty: 0 RF: 0 aspirin 81 MG tablet,delayed release (DR/EC) 81 mg PO QDAY Qty: 0 RF: 0 zolpidem 5 MG tablet 10 mg PO HS PRN (Reason: Sleep) Qty: 0 RF: 0 oxycodone 5 MG tablet 5 mg PO BID PRN (Reason: Pain) Qty: 0 RF: 0 simvastatin 10 MG tablet 10 mg PO BEDTIME Qty: 0 RF: 0 calcium carbonate [Tums] 500 MG tablet,chewable 500 mg PO QDAY Qty: 0 RF: 0 fluticasone propionate 16 GM spray,suspension 1 spray Intranasal QDAYP PRN (Reason: Allergy Symptoms) Qty: 0 RF: 0 glipizide 5 MG tablet 5 mg PO BID Qty: 0 RF: 0 melatonin 5 mg Tablet 10 mg PO BEDTIME PRN (Reason: Insomnia) RF: 0 pomegranate fruit extract 250 mg Capsule 1 cap PO DAILY RF: 0 lisinopril-hydrochlorothiazide 20-12.5 mg Tablet 1 tab PO DAILY RF: 0 lisinopril 20 mg Tablet 20 mg PO BEDTIME RF: 0 cyanocobalamin (vitamin B-12) 1,000 mcg capsule 1,000 mcg PO DAILY RF: 0 Lupron Depot (3 month) 11.25 mg Syringe Kit 11.25 mg IM [id number] RF: 0 Follow up/Referrals: Dewey Brunson MD [Physician] - Mark Santos MD [Primary Care Provider] - Provider Discharge Instructions Activity: No excessive bending, lifting, or twisting Cold/Heat Therapy: As needed Skin/Wound/Dressing Care Dressing: Jeremy site dressing on prior to discharge. Leave in place until appointment. Visit Report/Discharge Packet Instructions: DI for Transforaminal Lumbar Interbody Fusion Discharge Data Primary Care Provider: Mark Santos Attending Provider: Dewey Brunson Admit Date/Time: 12/11/18 07:20 Quality VTE Deep Vein Thrombosis/Pulmonary Embolism Present on Admission: No
[2018-12-13] MEDS: INSULIN ASPART 100 UNIT/ML INSULN PEN SUBCUT ×2 (08:11→11:44)
[2018-12-13] MEDS: MULTIVITAMIN 1 TABLET 1 TAB PO (08:12)
[2018-12-13] MEDS: LISINOPRIL 20 MG TABLET PO (08:13)
[2018-12-13] MEDS: CALCIUM CARBONATE 500 MG TAB PO (08:13)
[2018-12-13] MEDS: CYANOCOBALAMIN (VITAMIN B-12) 500 MCG TABLET 1000 MCG PO (08:13)
[2018-12-13] MEDS: hydroCHLOROthiazide 12.5 MG CAPSULE PO (08:13)
[2018-12-13] MEDS: glipiZIDE 5 MG TABLET PO (08:13)
[2018-12-13] MEDS: FLUoxetine 10 MG CAPSULE PO (08:13)
[2018-12-13] MEDS: DOCUSATE 100 MG CAPSULE PO (08:13)
[2018-12-13] MEDS: METFORMIN HCL 500 MG TABLET 1000 MG PO (08:15)
[2018-12-13] MEDS: FLUTICASONE 120 SPRAY/16 GM SPRAY.SUSP NASAL (08:16)
--- NOTE | 2018-12-13 09:42 | OT.IP.TRT ---
Current Diagnoses Other spondylosis with radiculopathy, lumbosacral region (12/11/18) Spinal stenosis, lumbar region without neurogenic claudication (12/11/18) Surgery Performed Operation Date: 12/11/18 08:45 Actual Procedures p L5-S1 TLIF - Dewey Brunson MD Occupational Therapy Treatment Note M2 OT-IP Current Condition Start: 12/12/18 08:36 Freq: Status: Active Protocol: Document 12/12/18 09:33 PJM (Rec: 12/12/18 10:21 PJM [email or web address]) Occupational Therapy Current Condition Current Condition Evaluation Date 12/12/18 Treatment Diagnosis decreased self are, mobility s /p L5-S1 TLIF Post Operative Precautions Lumbar Precautions Log Roll No Twisting Limit Bending Lifting Restriction of 10 lbs Gait Belt above Incisional Area M3 OT- IP Subjective and Pain Start: 12/12/18 08:36 Freq: Status: Active Protocol: Document 12/13/18 09:27 CCC (Rec: 12/13/18 09:42 CCC [id number]) OT- Subjective Occupational Therapy Visit Type Type Treatment Note Visit Start Time 08:58 Visit Stop Time 09:17 Total Visit Minutes 19 Occupational Therapy Visit Comments Patient Comments Pt states not sure if he is ready to go home today and not wanting to shower today as well. Patient/Caregiver Goals To go home when medically stable. OT Pain Assessment Pain When Pain Assessed During Mobility Pain Present Pain Present Pain Reported Location Lower Back Intensity 5 M4 OT- IP ADL's Start: 12/12/18 08:36 Freq: Status: Active Protocol: Document 12/13/18 09:27 [facility] (Rec: 12/13/18 09:42 [facility] [id number]) OT [id number] General Evaluation Self-Feeding Ability Independent OT ADL-Grooming General Evaluation Grooming Ability Standby Assistance Areas Needing Assistance Retrieving/Set-up of Grooming Items Comments OT Grooming Comments Pt able to stand with FWW for all grooming needs, vc to bend at hips to spit. OT ADL-Oral Care General Eval Oral Care Ability Independent OT ADL-Dressing General Eval Lower Body Dressing Ability Standby Assistance Areas Needing Assistance Socks Assistive Devices Dressing Assistive Devices Long Handled Shoe Horn Wire Rigger Sock Aid Comments OT Dressing Comments Pt needing reminders to get sock all the way up the sock aid and then able to do with increased time. Pt having better understanding for lower body adaptive equipment today . OT ADL-Toileting Comments OT Toileting Comments Pt not having to go and simulated if needing to have a bowerl movement, pt able to safely lean over to wipe, suggested use of wips as well. Pt has a counter to the right that he can assist to stand. OT ADL-Bathing Comments OT Bathing Comments Pt declined to shower. M5 OT- IP IADL's Start: 12/12/18 08:36 Freq: Status: Active Protocol: Document 12/12/18 09:33 PJM (Rec: 12/12/18 10:21 PJM [id number]) OT-Instrumental Activities of Daily Living Deficits IADL Deficits Identified Deficits Home Safety Awareness Awareness of Need for Assistance at Home Good Awareness Medication Management Medication Management No Deficits Identified Money Management Money Management No Deficits Identified Meal Preparation Meal Preparation Caregiver Provides Assist Meal Preparation Comments can assist until pt able Heel Wheeler Heel Wheeler Caregiver Provides Assist Heel Wheeler Comments /family can assist until pt able Driving Driving Caregiver Provides Assist Driving Comments /family can assist until pt able M6 OT- IP Functional Cognition Start: 12/12/18 08:36 Freq: Status: Active Protocol: Document 12/13/18 09:27 [facility] (Rec: 12/13/18 09:42 [facility] [id number]) Cognitive Factors Limiting Selfcare Function Cognitive Ability Level of Alertness Drowsy Patient Orientation Name Age Birthday Month Date Year Day of Week Place Situation Attention Span Ability Capable of Focused Attention Unable to Sustain Attention Ability to Follow Commands Able to Follow One Step Commands Problem Solving Ability Needs Assist to Identify Solutions Cognitive Comments Cognitive Assessment Comments Initially 1/3 back precautions and then 2/3 and then at the end of the session able to recall all back precautions. Pt still very drowsy, RN terence. Pt needing cues to push up from the recliner arm rests. M7 OT- IP Mobility and Balance Start: 12/12/18 08:36 Freq: Status: Active Protocol: Document 12/13/18 09:27 [facility] (Rec: 12/13/18 09:42 [facility] [id number]) OT-Transfer Assessment Sit to and From Stand Sit to and from Stand Contact Guard Assistance Comments Mobility Comments Pt moves slowly and carefully. 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 Strength Hand Dominance Right OT- Coordination Assessment Comments Coordination Comments BUE WFL OT Sensation Assessment Comments Summary Comments BUE WNL per pt Edema Edema Absent M9 OT- IP Assessment and Plan Start: 12/12/18 08:36 Freq: Status: Active Protocol: Document 12/13/18 09:27 CCC (Rec: 12/13/18 09:42 CCC [email or web address]) OT Summary Assessment and Plan Potential Rehabilitation Potential Good Analytic Complexity at Evaluation Low Summary OT Impairments Pain Balance Functional Mobility Grooming Dressing Toileting Bathing Toilet Transfers Shower Transfers Progress Towards Goals Slow Progress due to Pain Slow Progress due to Activity Tolerance Assessment Summary Pt still needing safety education for all ADL needs, equipment use, and suggestion to get FWW. Pt's not able to physically assist per pt, but son and daughter in law to be present this weekend and in the evenings during the work week. Pt's family not present from OT session. If leaving today to benefit from another OT session to touch base with pt's family and re-review education for ADL's, car transfers, and equipment needs. Goals Grooming Goal Independent Dressing Goal Independent Long Handled Shoe Horn Wire Rigger Sock Aid Toileting Goal Independent Bathing Goal Standby Assistance Hand Held Shower Sprayer Toilet Transfer Goal Independent Shower Transfer Goal Standby Assistance Walk-in Shower Patient/Caregiver Education Goal Demonstrate Post-Op Precautions Demonstrate Energy Conservation and Pacing Caregiver Independent Assisting Patient Days to Meet Goals 1 Frequency of Treatment Frequency Of Treatment Once a Day Treatment Plan OT Treatment Plan ADL Training Functional Mobility Patient/Family Education Discharge Planning Discharge Recommendations OT Discharge Recommendations Home with Assistance Home Equipment Needs FWW
--- NOTE | 2018-12-13 10:45 | PT.IPTN ---
Current Diagnoses Other spondylosis with radiculopathy, lumbosacral region (12/11/18) Spinal stenosis, lumbar region without neurogenic claudication (12/11/18) Surgery Performed Operation Date: 12/11/18 08:45 Actual Procedures p L5-S1 TLIF - Dewey Brunson MD Physical Therapy Treatment Note M2 PT-IP Current Condition Start: 12/11/18 15:37 Freq: NEEDED Status: Active Protocol: Document 12/11/18 14:55 AB (Rec: 12/11/18 15:50 AB [id number]) Physical Therapy Current Condition Current Condition Evaluation Date 12/11/18 Treatment Diagnosis s/p L5S1 fusion/lami; difficulty in walking Onset Date 12/11/18 Precautions Lumbar Precautions Log Roll No Twisting Limit Bending Lifting Restriction of 10 lbs Gait Belt above Incisional Area M3 PT-IP Subjective Start: 12/11/18 15:37 Freq: NEEDED Status: Active Protocol: Document 12/13/18 10:44 LJ (Rec: 12/13/18 10:45 LJ [id number]) Subjective Physical Therapy Visit Type Notes Pt fell asleep in chair. Nursing just returned him to bed. Check back later for PT M4 PT-IP Mobility and Gait Start: 12/11/18 15:37 Freq: NEEDED Status: Active Protocol: Document 12/12/18 13:25 GGD (Rec: 12/12/18 13:48 GGD [id number]) PT-Transfer Assessment Sit to and From Stand Sit to and from Stand Contact Guard Assistance 1 Person Assistance Use of Upper Extremities Equipment Transfer Assistive Device Gait Belt 4 Wheeled Walker Orthotic/Prosthetic Devices or Brace: No Transfers Transfer Destination Bed Transfer Ability Level of Assist Contact Guard Assistance Gait Assessment Gait Gait Assistance Required: Contact Guard Assist Distance (Feet) 130 Able to Maintain Weight Bearing Status Yes During Gait Assistive Devices Assistive Device Gait Belt 4 Wheeled Walker Orthotic/Prosthetic Devices or Brace: No Gait Deviations General Gait Pattern Antalgic Decreased Stride Length Decreased Feet Clearance Step-to Gait Factors Limiting Gait Function Factors Limiting Gait Function Decreased Activity Tolerance Decreased Strength Limited Range of Motion Pain Poor Balance Poor Safety Awareness M5 PT-IP Objective Assessments Start: 12/11/18 15:37 Freq: NEEDED Status: Active Protocol: Document 12/11/18 14:55 AB (Rec: 12/11/18 15:50 AB [id number]) Orientation Orientation/Cognition Level of Alertness Alert Orientation Name Place Situation Language Function Ability No Deficits Noted Safety Awareness Understands Safety Issues Memory Description No Deficits Noted Gross Range of Motion Lower Extremity ROM Assessment Within Functional Limits Strength Lower Extremity Strength Assessment Bilaterally Impaired Hip 4-/5 Knee 4-/5 Coordination Assessment Gross Coordination Gross Coordination WNL Sensation Assessment Sensation Gross Sensation WNL Muscle Tone Muscle Tone WNL Yes M6 PT-IP Treatment Start: 12/11/18 15:37 Freq: NEEDED Status: Active Protocol: Document 12/12/18 13:25 GGD (Rec: 12/12/18 13:48 GGD [id number]) Physical Therapy Treatment Education Education Provided Precautions M7 PT-IP Assessment and Plan Start: 12/11/18 15:37 Freq: NEEDED Status: Active Protocol: Document 12/12/18 13:25 GGD (Rec: 12/12/18 13:48 GGD [id number]) PT Summary Assessment and Plan Summary Assessment Summary Pt progressing with gait. He was safe and stable with 4WW. He was able to progress gait pace and step length. He is slow with mobility. Frequency of Treatment Frequency Of Treatment Twice a Day Treatment Plan Physical Therapy Treatment Plan Bed Mobility Training Transfer Training Gait Training Therapeutic Exercise Balance Retraining Post Op Education Discharge Planning Hot or Cold Pack Neuromuscular Re-ed Coordination Retraining Manual Therapy Other Recommendations and Next Treatment log roll bed mobility, Focus caregiver training Recommendations To Nursing Amount of Assist Needed 1 Person Assist Discharge Recommendations PT Discharge Recommendations Home with Assistance
--- NOTE | 2018-12-13 11:17 | PC.NURSE ---
Pt is A&Ox3, He has been ambulating with 1PA and walker. Given 5mg of po percolone and helpful. and daughter in room at this time. Pt will most likely be discharged home later today. Dressing will be changed to water proof dressing right before discharge. Pt denies any numbness or tingling to upper and lower extremities.
--- NOTE | 2018-12-13 11:25 | PT.IPTN ---
Current Diagnoses Other spondylosis with radiculopathy, lumbosacral region (12/11/18) Spinal stenosis, lumbar region without neurogenic claudication (12/11/18) Surgery Performed Operation Date: 12/11/18 08:45 Actual Procedures p L5-S1 TLIF - Dewey Brunson MD Physical Therapy Treatment Note M2 PT-IP Current Condition Start: 12/11/18 15:37 Freq: NEEDED Status: Active Protocol: Document 12/11/18 14:55 AB (Rec: 12/11/18 15:50 AB [id number]) Physical Therapy Current Condition Current Condition Evaluation Date 12/11/18 Treatment Diagnosis s/p L5S1 fusion/lami; difficulty in walking Onset Date 12/11/18 Precautions Lumbar Precautions Log Roll No Twisting Limit Bending Lifting Restriction of 10 lbs Gait Belt above Incisional Area M3 PT-IP Subjective Start: 12/11/18 15:37 Freq: NEEDED Status: Active Protocol: Document 12/13/18 11:25 GGD (Rec: 12/13/18 11:49 GGD [id number]) Subjective Physical Therapy Visit Type Type Treatment Note Visit Start Time 11:11 Visit Stop Time 11:25 Total Visit Minutes 14 Number of INTERIOR DESIGN PROFESSIONAL Visits 3 Physical Therapy Visit Comments Patient Comments Pt states he needs to use the bathroom. Therapy Pain Assessment Pain When Pain Assessed At Rest Pain Present Pain Present Pain Reported Location Lower Back Intensity 5 Scale Used Numeric (1 - 10) M4 PT-IP Mobility and Gait Start: 12/11/18 15:37 Freq: NEEDED Status: Active Protocol: Document 12/13/18 11:25 GGD (Rec: 12/13/18 11:49 GGD [id number]) PT-Bed Mobility Assessment Rolling Type of Rolling Log Rolling Level of Assist Standby Assistance Supine to Sit Supine to Sit Contact Guard Assistance Sit to Supine Sit to Supine Contact Guard Assistance 1 Person Assistance Scooting Scooting to Edge of Bed Standby Assistance PT-Transfer Assessment Sit to and From Stand Sit to and from Stand Standby Assistance Use of Upper Extremities Equipment Transfer Assistive Device Gait Belt 4 Wheeled Walker Orthotic/Prosthetic Devices or Brace: No Transfers Transfer Destination Bed Chair Toilet Transfer Ability Level of Assist Contact Guard Assistance Gait Assessment Gait Gait Assistance Required: Contact Guard Assist Distance (Feet) 30 Able to Maintain Weight Bearing Status Yes During Gait Assistive Devices Assistive Device Gait Belt 4 Wheeled Walker Orthotic/Prosthetic Devices or Brace: No Gait Deviations General Gait Pattern Antalgic Decreased Stride Length Decreased Feet Clearance Step-to Gait Factors Limiting Gait Function Factors Limiting Gait Function Decreased Activity Tolerance Decreased Strength Limited Range of Motion Pain Poor Balance Poor Safety Awareness M5 PT-IP Objective Assessments Start: 12/11/18 15:37 Freq: NEEDED Status: Active Protocol: Document 12/11/18 14:55 AB (Rec: 12/11/18 15:50 AB [id number]) Orientation Orientation/Cognition Level of Alertness Alert Orientation Name Place Situation Language Function Ability No Deficits Noted Safety Awareness Understands Safety Issues Memory Description No Deficits Noted Gross Range of Motion Lower Extremity ROM Assessment Within Functional Limits Strength Lower Extremity Strength Assessment Bilaterally Impaired Hip 4-/5 Knee 4-/5 Coordination Assessment Gross Coordination Gross Coordination WNL Sensation Assessment Sensation Gross Sensation WNL Muscle Tone Muscle Tone WNL Yes M6 PT-IP Treatment Start: 12/11/18 15:37 Freq: NEEDED Status: Active Protocol: Document 12/13/18 11:25 GGD (Rec: 12/13/18 11:49 GGD [id number]) Physical Therapy Treatment Education Education Provided Precautions M7 PT-IP Assessment and Plan Start: 12/11/18 15:37 Freq: NEEDED Status: Active Protocol: Document 12/13/18 11:25 GGD (Rec: 12/13/18 11:49 GGD [id number]) PT Summary Assessment and Plan Summary Assessment Summary Pt progressing with bed mobility. He is slowly moving and very guarded during mobility. Pt is safe for home d/c when medically stable. Frequency of Treatment Frequency Of Treatment Twice a Day Recommendations To Nursing Amount of Assist Needed 1 Person Assist Discharge Recommendations PT Discharge Recommendations Home with Assistance
[2018-12-13] MEDS: SODIUM CHLORIDE 0.9% FLUSH 10 ML IV (11:49)
[2018-12-13] MEDS: PANTOPRAZOLE 20 MG TABLET PO (11:49)
--- NOTE | 2018-12-13 15:25 | CM.DPC ---
DCP: continued: Case received, EMR reviewed, d/c to home setting noted. Review of d/c plan shows pt with support at home from and brother. OT/PT worked with pt and supoported this plan. Went to room to check in with pt. Room empty and cleaned. Pt had already left for home as per his plan.
== END 2018-12-13 13:22 | disposition home or self-care (01) | DRG 455 ==
PROVIDERS: Admitting Provider Orthopaedic Surgery Orthopaedic Surgery of the Spine; PCP Internal Medicine; Visit Provider Orthopaedic Surgery Orthopaedic Surgery of the Spine
PROC: 0SG30AJ Fusion of Lumbosacral Joint with Interbody Fusion Device, Posterior Approach, Anterior Column, Open Approach (ICD-10-PCS; principal; 2018-12-11 08:45)
DX: M48.07 Spinal stenosis, lumbosacral region (principal); M48.061 Spinal stenosis, lumbar region without neurogenic claudication; M47.27 Other spondylosis with radiculopathy, lumbosacral region; M43.16 Spondylolisthesis, lumbar region; E11.9 Type 2 diabetes mellitus without complications; I10 Essential (primary) hypertension; G25.81 Restless legs syndrome; E78.5 Hyperlipidemia, unspecified; Z87.891 Personal history of nicotine dependence
CPT/HCPCS: 72100; 76000; 82962; 97116; 97161; 97165; 97530; 97535; C1776; C9290; J0131; J0330; J1170; J2405; J2704; J3010

== ENCOUNTER → 2019-02-25 19:05 | Outpatient (CLI) | payer OTHER, SELFPAY ==
[2018-12-11 13:12] VITALS: BMI 31.0
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
== END ==
PROVIDERS: PCP Internal Medicine; Visit Provider Nurse Practitioner
DX: M54.5 Low back pain (principal); M47.816 Spondylosis without myelopathy or radiculopathy, lumbar region; Z98.1 Arthrodesis status
CPT/HCPCS: 72100

== ENCOUNTER → 2019-02-28 13:28 | Outpatient (CLI) | payer OTHER, SELFPAY ==
[2018-12-11 13:12] VITALS: BMI 31.0
[2019-02-28 15:48] LABS: BUN Creatinine Ratio 25.7 (6-22); Blood Urea Nitrogen 18 mg/dL (9-20); Calcium 10.4 mg/dL (8.4-10.2); Carbon Dioxide 26 mmol/L (22-32); Chloride 102 mmol/L (98-107); Estimated Glomerular Filt Rate > 60.0 mL/min (>60); Glucose 192 mg/dL (80-110); HEMOLYSIS < 15 (0-50); Magnesium 1.6 mg/dL (1.6-2.3); Sodium 138 mmol/L (137-145)
== END ==
PROVIDERS: PCP Internal Medicine; Visit Provider Internal Medicine
DX: I10 Essential (primary) hypertension (principal); E11.9 Type 2 diabetes mellitus without complications
CPT/HCPCS: 36415; 80048; 83735

== ENCOUNTER → 2019-03-04 10:22 | Outpatient (CLI) | payer OTHER, SELFPAY ==
[2018-12-11 13:12] VITALS: BMI 31.0
--- NOTE | 2019-03-04 | DI.RAD.S_ITS ---
PROCEDURE: XR RIBS LT MIN 3V W CXR1V INDICATIONS: LEFT RIB PAIN TECHNIQUE: 2 views of the left ribs were acquired, along with a single view chest. COMPARISON: [facility], NM, NM BONE SCAN WHOLE BODY, 04/19/2017, 13:06. [facility], , XR CHEST 2V, 05/14/2018, 16:32. FINDINGS: Surgical changes and devices: None. Bones and chest wall: Probable nondisplaced left anterior fourth rib fracture. No suspicious bony lesions. Overlying soft tissues appear unremarkable. Lungs and pleura: No pleural effusions or pneumothorax. Lungs appear clear. Mediastinum: Mediastinal contours appear normal. Heart size is normal. IMPRESSION: Probable nondisplaced left anterior fourth rib fracture. Dictated by: Pete Hernández M.D. on 03/04/2019 at 11:58 Approved by: Pete Hernández M.D. on 03/04/2019 at 12:12
== END ==
PROVIDERS: PCP Internal Medicine; Visit Provider Physician Assistant
DX: R07.81 Pleurodynia (principal)
CPT/HCPCS: 71101

== ENCOUNTER 2022-05-19 11:15 | Emergency (ER) | payer OTHER, SELFPAY ==
[2018-12-11 13:12] VITALS: BMI 31.0
[2022-05-19] VITALS (63 sets, daily range): BP systolic 114–166; BP diastolic 71–92; PULSE 69–88; RESP 9–27; TEMP 36.2; O2SAT 95–98; BMI 29.9
--- NOTE | 2022-05-19 11:37 | DI.RAD.S_ITS ---
PROCEDURE: XR CHEST 1V INDICATIONS: chest pain TECHNIQUE: One view of the chest was acquired. COMPARISON: [facility], CR, XR CHEST 2V, 05/14/2018, 16:32. FINDINGS: Surgical changes and devices: None. Lungs and pleura: Lungs are clear. No pleural effusions or pneumothorax. Mediastinum: Mediastinal contours appear normal. Heart size is normal. Bones and chest wall: No suspicious bony lesions. Overlying soft tissues appear unremarkable. IMPRESSION: No acute pulmonary process. Dictated by: Silvia Chew M.D. on 05/19/2022 at 12:23 Approved by: Silvia Chew M.D. on 05/19/2022 at 12:26
[2022-05-19] MEDS: ASPIRIN 81 MG CHEW TAB 324 MG PO (12:11)
[2022-05-19 12:12] LABS: Add Manual Diff / Slide Review NO; Basophils Absolute Auto 100 /uL (0-100); Basophils Percent Auto 0.6 % (0-2); Eosinophils Absolute Auto 100 /uL (0-450); Eosinophils Percent Auto 1.1 % (2-4); Hematocrit 38.3 % (41-53); Hemoglobin 12.7 g/dL (13.5-17.5); Lymphocytes Absolute Auto 1700 /uL (1100-4500); Lymphocytes Percent Auto 18.2 % (25-40); Mean Corpuscular HGB Conc 33.1 % (30-36); Mean Corpuscular Hemoglobin 27.3 PG (26-34); Mean Corpuscular Volume 82.5 fL (80-100); Monocytes Absolute Auto 700 /uL (0-900); Monocytes Percent Auto 7.4 % (3-14); Neutrophils Absolute Auto 6600 /uL (1500-7000); Neutrophils Percent Auto 72.7 % (50-75); Platelet Count 221 X10^3/uL (150-400); Red Blood Cell Count 4.65 X10^6/uL (4.5-5.9); Red Cell Distribution Width 13.8 % (11.6-14.8); White Blood Cell Count 9.1 X10^3/uL (4.5-11.0)
[2022-05-19] MEDS: NITROGLYCERIN 0.4 MG SL TAB SL (12:12)
[2022-05-19 12:20] LABS: Prothrombin Time 11.4 SECONDS (10.1-12.7)
[2022-05-19 12:24] LABS: Alanine Aminotransferase 21 IU/L (<50); Albumin Globulin Ratio 1.3 (1.0-2.8); Alkaline Phosphatase 118 U/L (38-126); Aspartate Aminotransferase 24 IU/L (17-59); Bilirubin Total 0.3 mg/dL (0.2-1.3); Blood Urea Nitrogen 14 mg/dL (9-20); Calcium 9.1 mg/dL (8.4-10.2); Carbon Dioxide 26 mmol/L (22-32); Chloride 97 mmol/L (98-107); Creatine Kinase 39 U/L (55-170); Estimated Glomerular Filt Rate > 60 mL/min (>60); Glucose 172 mg/dL (80-110); HEMOLYSIS < 15 (0-50); Lipase 115 U/L (23-300); Magnesium 1.8 mg/dL (1.6-2.3); Potassium 3.6 mmol/L (3.4-5.1); Sodium 134 mmol/L (137-145)
[2022-05-19 12:30] LABS: PTT Partial Thromboplastin Tim 34 SECONDS (26-36)
[2022-05-19 12:35] LABS: Troponin I < 0.012 ng/mL (0.01-0.034)
--- NOTE | 2022-05-19 13:00 | DI.CT.S_ITS ---
PROCEDURE: CT ANGIO CHEST PE PROTOCOL INDICATIONS: prostate cancer chest pain TECHNIQUE: After the administration of intravenous contrast, 2 mm thick sections acquired from the pulmonary apices to the posterior costophrenic angles. 3-dimensional maximum intensity projection (MIP) coronal and sagittal reformats were then acquired through the thorax. For radiation dose reduction, the following was used: automated exposure control, adjustment of mA and/or kV according to patient size. COMPARISON: [facility], CT, CT CHEST ABDOMEN PELVIS WITH CONTRAST, 08/29/2021, 10:37. FINDINGS: Image quality: Excellent. Pulmonary arteries: Pulmonary arteries are normal in size, and demonstrate no intraluminal filling defects to suggest central pulmonary embolism. Lungs and pleura: Lungs are clear. No pleural effusions or pneumothorax. Central and peripheral airways are patent. Mediastinum: Heart size is normal, without pericardial effusion. No hilar adenopathy. There has been, however, appreciable interval growth in an abnormal anterior mediastinal lymph node adjacent to the superior margin of the ascending aorta, which previously had measured 1.2 x 1.3 cm and now measures approximately 1 point 7 x 1.8 cm in maximal dimension. This is currently best seen on series 4, image 46. Thoracic aorta is normal in caliber and enhancement. Esophagus is normal in caliber, without hiatal hernia. Bones and chest wall: No suspicious bony lesions. Ribs and thoracic spine appear intact throughout. Thyroid gland appears normal where well seen. No axillary or supraclavicular adenopathy. Abdomen: Visualized upper abdominal solid organs appear normal in the early arterial phase of enhancement however there is a new finding of adenopathy adjacent to the superior left adrenal gland and within the gastrohepatic ligament where indistinct tissue margin is seen between the gastric cardia and the adenopathy present. The morphology of the gastric cardia raises significant concern for a distal esophageal/gastric cardia malignancy as cause of these new lymph nodes and soft tissue thickening in those areas. IMPRESSION: 1. No pulmonary embolus is found. 2. Suspect mass lesion at the distal esophagus/gastric cardia with secondary adenopathy now present at the gastrohepatic ligament and adjacent to the upper left adrenal gland. Endoscopy likely is warranted at this time. 3. A previously present small anterior mediastinal lymph node has significantly enlarged from 08/29/21 to this examination. Dictated by: Kris Kebede M.D. on 05/19/2022 at 14:08 Approved by: Kris Kebede M.D. on 05/19/2022 at 14:19
--- NOTE | 2022-05-19 13:03 | ED.CHESTPAIN ---
HPI - Chest Pain General Chief Complaint: Chest Pain Stated Complaint: chest pains T-7 off & on stronger today Time Seen by Provider: 05/19/22 12:04 Source: patient Mode of arrival: Ambulatory Limitations: no limitations History of Present Illness HPI narrative: Patient is 72 year old male history of diabetes hypertension hyperlipidemia prostate cancer currently undergoing treatment presenting today with left-sided chest discomfort. Says it is coming and going for about a week. Nothing makes it better or worse. Today he feels constant pressure on the left side of his chest. It does sometimes hurt with deep breath but not with movement it is not reproducible. He denies any injury. He says he does get sweaty but he is on chemotherapy which makes him sweaty. He denies any nausea or vomiting. He has a little bit epigastric pain. She thought it was just his acid reflux. His brother has 3 stents in his heart that he got in his 60s and he also was told that it is acid reflux. Related Data Home Medications Medication Instructions Recorded Confirmed calcium carbonate 200 mg calcium 500 mg PO QDAY ##0 05/25/17 02/25/19 (500 mg) chewable tablet (Tums) fluoxetine 10 mg tablet 10 mg PO Q DAY ##0 05/25/17 02/25/19 fluticasone propionate 50 1 spray intranasal QDAYP PRN 05/25/17 02/25/19 mcg/actuation nasal Allergy Symptoms ##0 spray,suspension glipizide 5 mg tablet 5 mg PO BID ##0 05/25/17 02/25/19 metformin 1,000 mg tablet 1,000 mg PO BIDCC ##0 05/25/17 02/25/19 (Glucophage) multivitamin (Multiple Vitamins 1 tab PO QDAY ##0 05/25/17 02/25/19 tablet) omeprazole 20 mg capsule,delayed 20 mg PO Q OTHER DAY ##0 05/25/17 02/25/19 release oxycodone 5 mg tablet 5 mg PO BID PRN Pain ##0 05/25/17 02/25/19 ropinirole 2 mg tablet,extended 2 mg PO HS ##0 05/25/17 02/25/19 release 24 hr simvastatin 10 mg tablet 10 mg PO BEDTIME ##0 05/25/17 02/25/19 zolpidem 5 mg tablet 10 mg PO HS PRN Sleep ##0 05/25/17 02/25/19 melatonin 5 mg tablet 10 mg PO BEDTIME PRN Insomnia 01/28/18 02/25/19 pomegranate fruit extract 250 mg 1 cap PO DAILY 01/28/18 02/25/19 capsule cyanocobalamin (vitamin B-12) 1,000 mcg PO DAILY 04/26/18 02/25/19 1,000 mcg capsule leuprolide (3 month) 11.25 mg (3 11.25 mg IM [id number] 04/26/18 02/25/19 month) intramuscular syringe kit (Lupron Depot) lisinopril 20 mg tablet 20 mg PO BEDTIME 12/03/18 02/25/19 lisinopril 20 1 tab PO DAILY 12/03/18 02/25/19 mg-hydrochlorothiazide 12.5 mg tablet Previous Rx's Medication Instructions Recorded docusate sodium 100 mg capsule 100 mg PO BID #60 caps 12/13/18 (DOK) hydroxyzine HCl 25 mg tablet 25 mg PO QID PRN muscle spasms #40 12/13/18 tabs oxycodone-acetaminophen 5 mg-325 1 tab PO Q4-6H PRN pain #50 tabs 12/13/18 mg tablet (Percocet) cyclobenzaprine 5 mg tablet 10 mg PO TID PRN muscle spasm #20 02/25/19 tabs hydrocodone 5 mg-acetaminophen 325 1 tab PO Q6H PRN pain #10 tabs 05/19/22 mg tablet Allergies Allergy/AdvReac Type Severity Reaction Status Date / Time amoxicillin [From Augmentin] AdvReac Severe Vomiting Verified 05/19/22 11:39 clavulanic acid AdvReac Severe Vomiting Verified 05/19/22 11:39 [From Augmentin] midazolam [From Versed] AdvReac Mild Shakiness Verified 05/19/22 11:39 bee sting Allergy Severe Swelling Uncoded 12/03/18 10:03 of Lip/Tongue/Throat Review of Systems Review of Systems ROS Unobtainable: All systems reviewed & are unremarkable except as noted in HPI and below Patient History Medical History (Updated 05/19/22 @ 18:56 by Ginny Johnson DO) Back pain Depression Diabetes Easy bruisability Elevated liver enzymes Former smoker GERD (gastroesophageal reflux disease) Hearing impaired HLD (hyperlipidemia) HTN (hypertension) Insomnia Metastatic malignant neoplasm to prostate Neck pain RLS (restless legs syndrome) Sciatica Seasonal allergies Sleep apnea Torn rotator cuff Surgical History H/O left wrist surgery History of vasectomy Hx of arthroscopy of left knee Hx of knee surgery Hx of prostatectomy (~2008) S/P epidural steroid injection Social History household members: spouse and children Smoking Status: Former smoker alcohol intake: current Smoking Status: Former smoker alcohol intake frequency: a few times a month Substance Use Type: marijuana Exam Initial Vital Signs Initial Vital Signs: Vital Signs Temperature 97.1 F L 05/19/22 11:20 Pulse Rate 78 05/19/22 11:20 Respiratory Rate 18 05/19/22 11:20 Blood Pressure 145/81 H 05/19/22 11:20 Pulse Oximetry 97 05/19/22 11:20 Oxygen Delivery Method 05/19/22 11:20 GENERAL: Well-appearing 72-year-old male HEENT: Head atraumatic,EOMI, pupils reactive, face symmetric, moist mucous membranes CARDIOVASCULAR: Regular rate and rhythm without murmurs, rubs or gallops. RESPIRATORY: Breath sounds equal bilaterally, no wheezes rales or rhonchi. ABDOMEN: Soft, minimal epigastric pain no right upper quadrant pain negative Pierson's Normoactive bowel sounds all 4 quadrants. No guarding or rebound. EXTREMITIES: Normal range of motion, no clubbing or edema. Neurovascularly intact NEUROLOGICAL: Alert and oriented x4.Normal gait and speech. SKIN: Warm, dry, no laceration, no petechiae, no rashes or lesions. Course Orders Ordered: Discontinued Medications Hydrocodone Bitart/Acetaminophen (Hydrocodone/Acet 5/325 Prepack) 1 bottle MISC SEEINSTR ONE Stop: 05/19/22 20:27 Last Admin: 05/19/22 20:29 Dose: 1 bottle Documented By: SUSANNA Aspirin (Aspirin 81 Mg Chew Tab) 324 mg PO NOW ONE Stop: 05/19/22 11:38 Last Admin: 05/19/22 12:11 Dose: 324 mg Documented By: DALLAS Morphine Sulfate (Morphine 2 Mg/Ml Inj) 2 mg IV NOW ONE Stop: 05/19/22 16:23 Last Admin: 05/19/22 17:01 Dose: 2 mg Documented By: SUSANNA Nitroglycerin (Nitroglycerin 0.4 Mg Sl Tab) 0.4 mg SL NOW ONE Stop: 05/19/22 12:08 Last Admin: 05/19/22 12:12 Dose: 0.4 mg Documented By: [facility] Vital Signs Vital signs: Vital Signs - 8 hr 05/19/22 11:20 05/19/22 12:12 05/19/22 12:05 Temperature 97.1 F L Pulse Rate 78 78 79 Respiratory Rate 18 19 Blood Pressure 145/81 H 142/84 H Pulse Oximetry 97 Oxygen Delivery Method Room Air 05/19/22 12:07 05/19/22 12:07 05/19/22 12:09 Temperature Pulse Rate 76 Respiratory Rate 15 Blood Pressure 146/83 H 150/79 H Pulse Oximetry 98 Oxygen Delivery Method 05/19/22 12:09 05/19/22 12:14 05/19/22 12:14 Temperature Pulse Rate 76 78 Respiratory Rate 17 14 Blood Pressure 142/84 H Pulse Oximetry 96 97 Oxygen Delivery Method 05/19/22 12:15 05/19/22 12:15 05/19/22 12:20 Temperature Pulse Rate 76 Respiratory Rate 9 L Blood Pressure 149/79 H 114/73 Pulse Oximetry 96 Oxygen Delivery Method 05/19/22 12:20 05/19/22 13:00 05/19/22 13:00 Temperature Pulse Rate 84 72 Respiratory Rate 19 13 Blood Pressure 127/77 Pulse Oximetry 95 97 Oxygen Delivery Method 05/19/22 13:05 05/19/22 13:05 05/19/22 13:10 Temperature Pulse Rate 72 Respiratory Rate 19 Blood Pressure 140/78 141/77 H Pulse Oximetry 95 Oxygen Delivery Method 05/19/22 13:10 05/19/22 13:15 05/19/22 13:15 Temperature Pulse Rate 72 74 Respiratory Rate 21 26 H Blood Pressure 134/76 Pulse Oximetry 95 97 Oxygen Delivery Method 05/19/22 13:22 05/19/22 13:22 05/19/22 13:25 Temperature Pulse Rate 78 Respiratory Rate 24 Blood Pressure 133/80 120/73 Pulse Oximetry 97 Oxygen Delivery Method 05/19/22 13:25 05/19/22 13:30 05/19/22 13:30 Temperature Pulse Rate 77 74 Respiratory Rate 21 17 Blood Pressure 129/80 Pulse Oximetry 97 96 Oxygen Delivery Method 05/19/22 14:00 05/19/22 14:30 05/19/22 14:54 Temperature Pulse Rate 72 73 70 Respiratory Rate 16 22 20 Blood Pressure Pulse Oximetry 97 97 97 Oxygen Delivery Method 05/19/22 14:54 05/19/22 14:55 05/19/22 14:55 Temperature Pulse Rate 69 Respiratory Rate 20 Blood Pressure 135/78 133/79 Pulse Oximetry 97 Oxygen Delivery Method 05/19/22 15:00 05/19/22 15:00 05/19/22 15:05 Temperature Pulse Rate 70 74 Respiratory Rate 16 24 Blood Pressure 134/79 Pulse Oximetry 97 96 Oxygen Delivery Method 05/19/22 15:05 05/19/22 15:10 05/19/22 15:10 Temperature Pulse Rate 78 Respiratory Rate 23 Blood Pressure 146/84 H 135/71 Pulse Oximetry 97 Oxygen Delivery Method 05/19/22 15:15 05/19/22 15:15 05/19/22 15:20 Temperature Pulse Rate 79 79 Respiratory Rate 21 20 Blood Pressure 135/71 Pulse Oximetry 97 96 Oxygen Delivery Method 05/19/22 15:20 05/19/22 15:25 05/19/22 15:25 Temperature Pulse Rate 75 Respiratory Rate 21 Blood Pressure 130/76 138/83 Pulse Oximetry 96 Oxygen Delivery Method 05/19/22 15:30 05/19/22 15:30 05/19/22 15:35 Temperature Pulse Rate 77 Respiratory Rate 17 Blood Pressure 138/82 143/82 H Pulse Oximetry 96 Oxygen Delivery Method 05/19/22 15:35 05/19/22 15:40 05/19/22 15:40 Temperature Pulse Rate 75 70 Respiratory Rate 18 19 Blood Pressure 142/79 H Pulse Oximetry 96 97 Oxygen Delivery Method Room Air 05/19/22 15:45 05/19/22 15:45 05/19/22 15:50 Temperature Pulse Rate 70 Respiratory Rate 21 Blood Pressure 146/87 H 149/78 H Pulse Oximetry 97 Oxygen Delivery Method 05/19/22 15:50 05/19/22 15:55 05/19/22 15:55 Temperature Pulse Rate 71 70 Respiratory Rate 21 20 Blood Pressure 158/85 H Pulse Oximetry 95 97 Oxygen Delivery Method 05/19/22 16:06 05/19/22 16:18 05/19/22 16:18 Temperature Pulse Rate 75 76 Respiratory Rate 21 Blood Pressure 136/78 Pulse Oximetry 96 96 Oxygen Delivery Method 05/19/22 16:30 05/19/22 17:00 05/19/22 17:04 Temperature Pulse Rate 72 83 83 Respiratory Rate 20 27 H 19 Blood Pressure Pulse Oximetry 95 98 97 Oxygen Delivery Method 05/19/22 17:04 05/19/22 17:06 05/19/22 17:06 Temperature Pulse Rate 80 Respiratory Rate 20 Blood Pressure 166/92 H 146/84 H Pulse Oximetry 95 Oxygen Delivery Method 05/19/22 17:10 05/19/22 17:10 05/19/22 17:15 Temperature Pulse Rate 80 75 Respiratory Rate 17 16 Blood Pressure 150/83 H Pulse Oximetry 95 95 Oxygen Delivery Method 05/19/22 17:15 05/19/22 17:20 05/19/22 17:20 Temperature Pulse Rate 75 Respiratory Rate 16 Blood Pressure 153/85 H 151/83 H Pulse Oximetry 95 Oxygen Delivery Method 05/19/22 17:25 05/19/22 17:25 05/19/22 17:30 Temperature Pulse Rate 76 Respiratory Rate 15 Blood Pressure 141/78 H 143/84 H Pulse Oximetry 96 Oxygen Delivery Method 05/19/22 17:30 05/19/22 17:35 05/19/22 17:35 Temperature Pulse Rate 74 73 Respiratory Rate 16 19 Blood Pressure 150/86 H Pulse Oximetry 95 95 Oxygen Delivery Method 05/19/22 17:40 05/19/22 17:40 05/19/22 17:45 Temperature Pulse Rate 74 74 Respiratory Rate 18 19 Blood Pressure 145/81 H Pulse Oximetry 95 95 Oxygen Delivery Method 05/19/22 17:45 05/19/22 17:50 05/19/22 17:50 Temperature Pulse Rate 74 Respiratory Rate 18 Blood Pressure 146/81 H 150/82 H Pulse Oximetry 95 Oxygen Delivery Method 05/19/22 17:55 05/19/22 17:55 05/19/22 18:00 Temperature Pulse Rate 75 Respiratory Rate 19 Blood Pressure 146/84 H 147/82 H Pulse Oximetry 96 Oxygen Delivery Method 05/19/22 18:00 05/19/22 18:05 05/19/22 18:05 Temperature Pulse Rate 75 75 Respiratory Rate 17 19 Blood Pressure 144/83 H Pulse Oximetry 96 95 Oxygen Delivery Method 05/19/22 18:10 05/19/22 18:10 05/19/22 18:15 Temperature Pulse Rate 74 74 Respiratory Rate 19 19 Blood Pressure 142/82 H Pulse Oximetry 96 95 Oxygen Delivery Method 05/19/22 18:15 05/19/22 18:21 05/19/22 18:21 Temperature Pulse Rate 88 Respiratory Rate 18 Blood Pressure 142/85 H 158/81 H Pulse Oximetry 97 Oxygen Delivery Method 05/19/22 18:26 05/19/22 18:26 05/19/22 18:30 Temperature Pulse Rate 78 Respiratory Rate 20 Blood Pressure 146/86 H 146/81 H Pulse Oximetry 97 Oxygen Delivery Method 05/19/22 18:30 Temperature Pulse Rate 79 Respiratory Rate 24 Blood Pressure Pulse Oximetry 96 Oxygen Delivery Method MDM - Chest Pain Lab Data Result diagrams: 05/19/22 11:44 05/19/22 11:44 Labs: Lab Results 05/19/22 05/19/22 05/19/22 Range/Units 11:44 11:44 11:44 WBC 9.1 (4.5-11.0) X10^3/uL RBC 4.65 (4.5-5.9) X10^6/uL Hgb 12.7 L (13.5-17.5) g/dL Hct 38.3 L (41-53) % MCV 82.5 (80-100) fL MCH 27.3 (26-34) PG MCHC 33.1 (30-36) % RDW 13.8 (11.6-14.8) % Plt Count 221 (150-400) X10^3/uL Neut % (Auto) 72.7 (50-75) % Lymph % (Auto) 18.2 L (25-40) % [place] % (Auto) 7.4 (3-14) % Eos % (Auto) 1.1 L (2-4) % Baso % (Auto) 0.6 (0-2) % Neut # (Auto) 6600 (7105-2569) /uL Lymph # (Auto) 1700 (7644-1599) /uL [place] # (Auto) 700 (0-900) /uL Eos # (Auto) 100 (0-450) /uL Baso # (Auto) 100 (0-100) /uL PT 11.4 (10.1-12.7) SECONDS INR 1.0 (0.9-1.3) APTT 34 (26-36) SECONDS Sodium 134 L (137-145) mmol/L Potassium 3.6 (3.4-5.1) mmol/L Chloride 97 L (98-107) mmol/L Carbon Dioxide 26 (22-32) mmol/L BUN 14 (9-20) mg/dL Creatinine 0.56 L (0.66-1.25) mg/dL Estimated GFR > 60 (>60) mL/min BUN/Creatinine Ratio 25.0 H (6-22) Glucose 172 H (80-110) mg/dL Calcium 9.1 (8.4-10.2) mg/dL Magnesium 1.8 (1.6-2.3) mg/dL Total Bilirubin 0.3 (0.2-1.3) mg/dL AST 24 (17-59) IU/L ALT 21 (<50) IU/L Alkaline Phosphatase 118 (38-126) U/L Total Creatine Kinase 39 L (55-170) U/L CK-MB (CK-2) TNP CK-MB (CK-2) Rel Index TNP Troponin I < 0.012 (0.01-0.034) ng/mL Total Protein 7.0 (6.3-8.2) g/dL Albumin 4.0 (3.5-5.0) g/dL Globulin 3.0 (1.7-4.1) g/dL Albumin/Globulin Ratio 1.3 (1.0-2.8) Lipase 115 (23-300) U/L 05/19/22 05/19/22 Range/Units 13:23 16:20 WBC (4.5-11.0) X10^3/uL RBC (4.5-5.9) X10^6/uL Hgb (13.5-17.5) g/dL Hct (41-53) % MCV (80-100) fL MCH (26-34) PG MCHC (30-36) % RDW (11.6-14.8) % Plt Count (150-400) X10^3/uL Neut % (Auto) (50-75) % Lymph % (Auto) (25-40) % [place] % (Auto) (3-14) % Eos % (Auto) (2-4) % Baso % (Auto) (0-2) % Neut # (Auto) (6230-2580) /uL Lymph # (Auto) (0831-9062) /uL [place] # (Auto) (0-900) /uL Eos # (Auto) (0-450) /uL Baso # (Auto) (0-100) /uL PT (10.1-12.7) SECONDS INR (0.9-1.3) APTT (26-36) SECONDS Sodium (137-145) mmol/L Potassium (3.4-5.1) mmol/L Chloride (98-107) mmol/L Carbon Dioxide (22-32) mmol/L BUN (9-20) mg/dL Creatinine (0.66-1.25) mg/dL Estimated GFR (>60) mL/min BUN/Creatinine Ratio (6-22) Glucose (80-110) mg/dL Calcium (8.4-10.2) mg/dL Magnesium (1.6-2.3) mg/dL Total Bilirubin (0.2-1.3) mg/dL AST (17-59) IU/L ALT (<50) IU/L Alkaline Phosphatase (38-126) U/L Total Creatine Kinase (55-170) U/L CK-MB (CK-2) CK-MB (CK-2) Rel Index Troponin I < 0.012 < 0.012 (0.01-0.034) ng/mL Total Protein (6.3-8.2) g/dL Albumin (3.5-5.0) g/dL Globulin (1.7-4.1) g/dL Albumin/Globulin Ratio (1.0-2.8) Lipase (23-300) U/L Imaging Data Chest x-ray: Radiologist's Impression: GISSEL [place] [id number] XRay Report Signed Patient: Monica Mckinney MR#: [id number] : 1950 Acct:[id number] Age/Sex: 72 / M Date of Service: 05/19/22 Loc: ED Accession Number: [id number] ?? Procedure: XR chest 1V Ordering Provider: Ginny Johnson D.O. PROCEDURE:? XR CHEST 1V ? INDICATIONS:? chest pain ? TECHNIQUE:? One view of the chest was acquired.? ? COMPARISON:? [facility], CR, XR CHEST 2V, 05/14/2018, 16:32. ? FINDINGS:? ? Surgical changes and devices:? None.? ? Lungs and pleura:? Lungs are clear.? No pleural effusions or pneumothorax.? ? Mediastinum:? Mediastinal contours appear normal.? Heart size is normal.? ? Bones and chest wall:? No suspicious bony lesions.? Overlying soft tissues appear unremarkable.? ? IMPRESSION:? No acute pulmonary process. ? ? Dictated by: Silvia Chew M.D. on 05/19/2022 at 12:23 ? ? CT scan - chest: Radiologist's Impression: CT Scan Report Signed Patient: Monica Mckinney MR#: [id number] : 1950 Acct:[id number] Age/Sex: 72 / M Date of Service: 05/19/22 Loc: ED Accession Number: [id number] ?? Procedure: CT angio chest PE protocol Ordering Provider: Ginny Johnson D.O. PROCEDURE:? CT ANGIO CHEST PE PROTOCOL ? INDICATIONS:? prostate cancer chest pain ? TECHNIQUE:? After the administration of intravenous contrast, 2 mm thick sections acquired from the pulmonary apices to the posterior costophrenic angles.? 3-dimensional maximum intensity projection (MIP) coronal and sagittal reformats were then acquired through the thorax.? For radiation dose reduction, the following was used:? automated exposure control, adjustment of mA and/or kV according to patient size.? ? COMPARISON:? [facility], CT, CT CHEST ABDOMEN PELVIS WITH CONTRAST, 08/29/2021, 10:37. ? FINDINGS:? Image quality:? Excellent.? ? Pulmonary arteries:? Pulmonary arteries are normal in size, and demonstrate no intraluminal filling defects to suggest central pulmonary embolism.? ? Lungs and pleura:? Lungs are clear.? No pleural effusions or pneumothorax.? Central and peripheral airways are patent.? ? Mediastinum:? Heart size is normal, without pericardial effusion.? No hilar adenopathy.? There has been, however, appreciable interval growth in an abnormal anterior mediastinal lymph node adjacent to the superior margin of the ascending aorta, which previously had measured 1.2 x 1.3 cm and now measures approximately 1 point 7 x 1.8 cm in maximal dimension.? This is currently best seen on series 4, image 46.? Thoracic aorta is normal in caliber and enhancement.? Esophagus is normal in caliber, without hiatal hernia.? ? Bones and chest wall:? No suspicious bony lesions.? Ribs and thoracic spine appear intact throughout.? Thyroid gland appears normal where well seen.? No axillary or supraclavicular adenopathy.? ? Abdomen:? Visualized upper abdominal solid organs appear normal in the early arterial phase of enhancement however there is a new finding of adenopathy adjacent to the superior left adrenal gland and within the gastrohepatic ligament where indistinct tissue margin is seen between the gastric cardia and the adenopathy present.? The morphology of the gastric cardia raises significant concern for a distal esophageal/gastric cardia malignancy as cause of these new lymph nodes and soft tissue thickening in those areas.? ? IMPRESSION:? ? 1.? No pulmonary embolus is found. ? 2.? Suspect mass lesion at the distal esophagus/gastric cardia with secondary adenopathy now present at the gastrohepatic ligament and adjacent to the upper left adrenal gland.? Endoscopy likely is warranted at this time. ? 3.? A previously present small anterior mediastinal lymph node has significantly enlarged from 08/29/21 to this examination.? ? Dictated by: Kris Kebede M.D. on 05/19/2022 at 14:08 ? ? ECG Data Interpretation: EKG 1. Normal sinus rhythm rate 77 CA interval 186 QRS [address] changes no T-wave inversions Q-waves noted in lead 3 only EKG 2. Sinus rhythm rate [address] changes similar to prior EKG 3. Sinus rhythm similar to previous no changes MDM Narrative Medical decision making narrative: Patient is 72-year-old male with history of hypertension hyperlipidemia diabetes and prostate cancer presenting today with left-sided chest pressure. Symptoms are certainly concerning for acute coronary syndrome. He has multiple normal EKGs and negative troponins. CT angio does not show any pulmonary embolism but does show mass at distal esophagus and gastric cardia. Patient reports that he does have known metastasis in masses. Hard to tell if this is new he says his previous CTs were at [facility]. Patient continues to have constant left-sided chest pain. 1615: Dr. Duarte cardiology updated on patient's symptoms test results and risk factors. Agrees that patient does probably need stress test. Although pain is a little atypical for cardiac. Discussion of keeping patient at least for an echo overnight he did not think an echocardiogram would be that helpful. Unlikely to transfer patient. Unlikely to get a stress test until Sunday. Patient is feeling like he has some abdominal discomfort and gas but no localization or specific abdominal pain. Normal bilirubin liver enzymes and lipase. Possible abdominal etiology rather than cardiac. I did discuss with Dr. Sheffield hospitalist as well. Patient is having consistent pain unlikely to be cardiac agrees that patient does need a stress test but not able to get went over the weekend. Due to significant bed shortage is highly unlikely to be transferred as well. Patient now complaining of some abdominal bloating. Wondering if it could be gas. X-ray does not show any abnormality. Patient reports he took Dulcolax and another stool softener last night he had hard bowel movement this morning and feels like things are moving around. It is abdomen is reexamined is soft mildly tender all over without specific localization. No distention. Long discussion with patient about strict return precautions. He will go home he is going home with family to [place]. We discussed how if he is having any sort of worsening chest discomfort he needs to call 911 and go directly to a nearest hospital. Both he and his brother understand this and will do it. I also recommend talking aspirin 81 mg daily. Abdominal x-ray did not show any abnormality MDM CC: Chest pain Complicating co-morbidities: Hypertension hyperlipidemia diabetes Corroborating data: Brothers Data collected from: [ ] Medical records reviewed: [ ] Differential considered: Acute coronary syndrome, pulmonary embolism, acid reflux, pancreatitis, cholelithiasis cholecystitis Exam documented above, pertinent findings include: Mild epigastric pain tender left-sided chest nonreproducible Lab Test results independently reviewed as above. Pertinent findings: [ ] Independently reviewed EKG as above Imaging studies independently reviewed: Consultations: Cardiology, hospitalist Treatments: Aspirin nitro morphine Re-evaluations: Chest pain improved but is pretty constant Discussion: As above Diagnosis: Chest pain Disposition: see below, along with detailed discharge instructions that have been reviewed with patient as well as indications for ED re-evaluation and additional outpatient follow up Discharge Plan Departure Patient Disposition: Home Clinical Impression: Chest pain Instructions: DI for Chest Pain Activity Restrictions/Additional Instructions: *You have been diagnosed with chest pain *What to do: At this time you need stress test. Unfortunately we can not do a stress test over the weekend. I have spoken to Cardiology and another hospitalist. At this time he may go home. However if you are having any worsening chest discomfort you must call 911 and return to the nearest hospital. You are high-risk for heart attack but not currently having a heart attack *Continue to take medications as directed [place] 1 tablet every 6 hours if needed for severe pain Aspirin 81 mg once a day *Follow up with your primary care provider in 2-3 days or call [phone] *Return to ER if you should have increasing chest pain, shortness of breath, pressure dizziness passing out or any new, worsening or concerning symptoms Prescriptions: New hydrocodone-acetaminophen 5-325 mg tablet 1 tab PO Q6H PRN (Reason: pain) Qty: 10 0RF No Action cyclobenzaprine 5 mg tablet 10 mg PO TID PRN (Reason: muscle spasm) Qty: 20 0RF Rx Instructions: 1-2 tabs PRN TID fluoxetine 10 MG tablet 10 mg PO Q DAY Qty: 0 metformin [Glucophage] 1,000 MG tablet 1,000 mg PO BIDCC Qty: 0 omeprazole 20 MG capsule,delayed release(DR/EC) 20 mg PO Q OTHER DAY Qty: 0 ropinirole 2 MG tablet extended release 24 hr 2 mg PO HS Qty: 0 multivitamin [Multiple Vitamins] 1 EACH tablet 1 tab PO QDAY Qty: 0 zolpidem 5 MG tablet 10 mg PO HS PRN (Reason: Sleep) Qty: 0 oxycodone 5 MG tablet 5 mg PO BID PRN (Reason: Pain) Qty: 0 simvastatin 10 MG tablet 10 mg PO BEDTIME Qty: 0 calcium carbonate [Tums] 500 MG tablet,chewable 500 mg PO QDAY Qty: 0 fluticasone propionate 16 GM spray,suspension 1 spray Intranasal QDAYP PRN (Reason: Allergy Symptoms) Qty: 0 glipizide 5 MG tablet 5 mg PO BID Qty: 0 melatonin 5 mg Tablet 10 mg PO BEDTIME PRN (Reason: Insomnia) Label Comments: pt to verify dose pomegranate fruit extract 250 mg Capsule 1 cap PO DAILY lisinopril-hydrochlorothiazide 20-12.5 mg Tablet 1 tab PO DAILY lisinopril 20 mg Tablet 20 mg PO BEDTIME docusate sodium [DOK] 100 mg Capsule 100 mg PO BID Qty: 60 0RF oxycodone-acetaminophen [Percocet] 5-325 mg tablet 1 tab PO Q4-6H PRN (Reason: pain) Qty: 50 0RF Rx Instructions: 1-2 tabs po every 4-6 hours as needed for severe pain exempt. post op pain. hydroxyzine HCl 25 mg tablet 25 mg PO QID PRN (Reason: muscle spasms) Qty: 40 1RF Rx Instructions: 1 tab po every 6 hours as needed for muscle spasms cyanocobalamin (vitamin B-12) 1,000 mcg capsule 1,000 mcg PO DAILY Lupron Depot (3 month) 11.25 mg Syringe Kit 11.25 mg IM [id number] Referrals: Marita Rivas ND [Primary Care Provider] - Stand Alone Forms: Patient Portal/API
[2022-05-19 14:10] LABS: Troponin I < 0.012 ng/mL (0.01-0.034)
[2022-05-19] MEDS: MORPHINE 2 MG/ML INJ IV (17:01)
[2022-05-19 18:02] LABS: Troponin I < 0.012 ng/mL (0.01-0.034)
--- NOTE | 2022-05-19 18:35 | DI.RAD.S_ITS ---
PROCEDURE: XR ABDOMEN MIN 2V INDICATIONS: pain bloating TECHNIQUE: 2 views of the abdomen were acquired. COMPARISON: [facility], CT, CT CHEST ABDOMEN PELVIS WITH CONTRAST, 08/29/2021, 10:37. FINDINGS: Surgical changes and devices: Postsurgical changes are seen in the lower lumbar spine. Surgical clips are seen projecting over the pelvis. Bowel: No pneumoperitoneum. Nonspecific nonobstructive bowel gas pattern. Soft tissues: No masses; visualized solid organ contours appear normal in size. No suspicious abdominal calcifications. Bones: No suspicious bony abnormalities. IMPRESSION: Nonspecific nonobstructive bowel gas pattern. No pneumoperitoneum. Approved by: Christiano Zuniga M.D. on 05/19/2022 at 19:59
[2022-05-19] MEDS: HYDROCODONE/ACET 5/325 PREPACK 1 BOTTLE MISC (20:29)
== END 2022-05-19 20:31 | disposition home or self-care (01) ==
PROVIDERS: Emergency Provider Emergency Medicine; PCP Naturopath
DX: R07.9 Chest pain, unspecified (principal); I10 Essential (primary) hypertension; R10.13 Epigastric pain; Z79.899 Other long term (current) drug therapy
CPT/HCPCS: 36415; 71045; 71275; 74019; 80053; 82550; 83690; 83735; 84484; 85025; 85610; 85730; 93005; 93010; 96374; 99284; J2270; Q9967

== ENCOUNTER → 2023-01-23 15:54 | Outpatient (CLI) | payer OTHER, SELFPAY ==
[2018-12-11 13:12] VITALS: BMI 31.0
--- NOTE | 2023-01-23 | DI.MRI.S_ITS ---
PROCEDURE: MR HEAD/BRAIN WO/W CON INDICATIONS: Benign neoplasm TECHNIQUE: Noncontrast axial T1 spin echo, axial T2 fast spin echo, sagittal and axial FLAIR, coronal T2 fast spin echo, axial gradient echo, axial diffusion and ADC through the brain. After the administration of contrast, axial and coronal and sagittal T1 spin echo with fat saturation through the brain. COMPARISON: [facility], MR, MR BRAIN WITH/WITHOUT CONTRAST, 01/26/2020, 13:26. [facility], MR, MR BRAIN WITH/WITHOUT CONTRAST, 11/17/2020, 8:08. FINDINGS: Image quality: Excellent. CSF spaces: Basal cisterns are patent. No extra-axial fluid collections. Ventricles are normal in size and shape. Brain: There is a mildly T2 hyperintense focus seen adjacent to the right foramen of Monro, which is best demonstrated on series 8, image 12, measuring approximately 5 mm. On postcontrast imaging, no enhancement can be seen. No midline shift. No intracranial bleeds or masses. No abnormal intracranial enhancement. There is cerebral volume loss for age. There is periventricular white matter chronic small vessel ischemic change. The brainstem appears normal. Diffusion-weighted images demonstrate no acute ischemic insults. No chronic ischemic insults. Normal intravascular flow voids are present. Relatively prominent perivascular spaces are noted. Skull and face: Calvarial marrow is normal in signal. Orbits appear normal. Sinuses: Sinuses and mastoids appear clear. IMPRESSION: There is again seen a likely cystic lesion adjacent to the right foramen of Monro. This is minimally smaller on the current study than on the prior MRI examinations. 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 No suspicious enhancing masses can be seen. Dictated by: Estevan Osborn M.D. on 01/23/2023 at 17:04 Approved by: Estevan Osborn M.D. on 01/23/2023 at 17:07
== END ==
PROVIDERS: Referring Provider Neurological Surgery; Visit Provider Neurological Surgery
DX: D33.0 Benign neoplasm of brain, supratentorial (principal)
CPT/HCPCS: 70553; A9579

== ENCOUNTER → 2023-04-16 14:47 | Outpatient (ROUT) | payer OTHER, SELFPAY ==
[2018-12-11 13:12] VITALS: BMI 31.0
[2023-04-16 15:04] LABS: Add Manual Diff / Slide Review NO; Basophils Absolute Auto 0 /uL (0-100); Basophils Percent Auto 0.5 % (0-2); Eosinophils Absolute Auto 100 /uL (0-450); Eosinophils Percent Auto 0.8 % (2-4); Hematocrit 25.3 % (41-53); Hemoglobin 8.2 g/dL (13.5-17.5); Lymphocytes Absolute Auto 1600 /uL (1100-4500); Lymphocytes Percent Auto 17.5 % (25-40); Mean Corpuscular HGB Conc 32.3 % (30-36); Mean Corpuscular Hemoglobin 22.9 PG (26-34); Mean Corpuscular Volume 70.9 fL (80-100); Monocytes Absolute Auto 1500 /uL (0-900); Monocytes Percent Auto 16.1 % (3-14); Neutrophils Absolute Auto 6000 /uL (1500-7000); Neutrophils Percent Auto 65.1 % (50-75); Platelet Count 413 X10^3/uL (150-400); Red Blood Cell Count 3.57 X10^6/uL (4.5-5.9); Red Cell Distribution Width 21.1 % (11.6-14.8); White Blood Cell Count 9.3 X10^3/uL (4.5-11.0)
[2023-04-16 15:11] LABS: Alanine Aminotransferase 57 IU/L (<50); Albumin 2.5 g/dL (3.5-5.0); Albumin Globulin Ratio 0.8 (1.0-2.8); Alkaline Phosphatase 722 U/L (38-126); Aspartate Aminotransferase 92 IU/L (17-59); BUN Creatinine Ratio 67.7 (6-22); Bilirubin Total 0.4 mg/dL (0.2-1.3); Blood Urea Nitrogen 21 mg/dL (9-20); C-Reactive Protein Quant 8.9 mg/dL (<1.0); Carbon Dioxide 27 mmol/L (22-32); Chloride 102 mmol/L (98-107); Estimated Glomerular Filt Rate > 60 mL/min (>60); Globulin 3.2 g/dL (1.7-4.1); Glucose 125 mg/dL (80-110); HEMOLYSIS < 15 (0-50); Magnesium 1.9 mg/dL (1.6-2.3); Phosphorous 2.1 mg/dL (2.3-3.7); Potassium 4.8 mmol/L (3.4-5.1); Sodium 131 mmol/L (137-145); Total Protein 5.7 g/dL (6.3-8.2); Triglycerides 51 mg/dL (35-150)
[2023-04-16 15:47] LABS: Anisocytosis 2+; Macrocytosis 1+; Microcytosis 1+; Ovalocytes 1+; Stomatocytes 1+
[2023-04-18 13:27] LABS: Prealbumin 6.1 mg/dL (17.6-36.0)
== END ==
PROVIDERS: Visit Provider Internal Medicine Hematology & Oncology
DX: C16.0 Malignant neoplasm of cardia (principal); C61 Malignant neoplasm of prostate
CPT/HCPCS: 80053; 83735; 84100; 84134; 84478; 85025; 86140